=== PATIENT | female | born 1955 | race Caucasian/White ===

== ENCOUNTER 2016-11-16 14:44 | Emergency (ER) | payer OTHER ==
[~2016-11-16] VITALS: Ht 162.6 cm; Wt 100.0 kg
[~2016-11-16 14:44] MED LIST: PERCT PO; RIVA10 PO
[2016-11-16] MEDS ORDERED: MELO-273 PO (14:51)
[2016-11-16] MEDS ORDERED: GABA-531 PO (14:51)
[2016-11-16] MEDS ORDERED: LEVO25TA9 PO (14:51)
[2016-11-16] MEDS ORDERED: DULO30CA2 PO (14:51)
[2016-11-16] MEDS ORDERED: VITAD1000 PO (14:51)
[2016-11-16] MEDS ORDERED: NAPR220C15 PO (14:51)
[2016-11-16] MEDS ORDERED: KETOROLAC TROMETHAMINE 60 MG/2 ML VIAL IM ONE ×2 (17:15→17:45)
[2016-11-16] MEDS ORDERED: METHOCARBAMOL 500 MG TABLET PO ONE (17:30)
[2016-11-16 18:43] VITALS: BP 134/77
== END 2016-11-16 18:47 | disposition home or self-care (01) ==
LOC: EMS 14:45
DX: S66.912A Strain of unspecified muscle, fascia and tendon at wrist and hand level, left hand, initial encounter (principal); S66.911A Strain of unspecified muscle, fascia and tendon at wrist and hand level, right hand, initial encounter; S16.1XXA Strain of muscle, fascia and tendon at neck level, initial encounter; Z88.0 Allergy status to penicillin; X58.XXXA Exposure to other specified factors, initial encounter; Y93.89 Activity, other specified; Y92.89 Other specified places as the place of occurrence of the external cause; Y99.8 Other external cause status
CPT/HCPCS: 96372; 99283; J1885

== ENCOUNTER 2016-11-19 14:13 | Emergency (ER) | payer OTHER ==
[~2016-11-19] VITALS: Ht 162.6 cm; Wt 104.5 kg
[~2016-11-19 14:13] MED LIST changes: +DULO30CA2 PO; +GABA-531 PO; +LEVO25TA9 PO; +MELO-273 PO; +NAPR220C15 PO; -PERCT PO; -RIVA10 PO; +VITAD1000 PO
[2016-11-19] MEDS ORDERED: IBUP-2070 PO (14:18)
[2016-11-19 14:26] LABS: GLUCOSE,POINT OF CARE 99 MG/DL (70-110)
[2016-11-19 15:15] VITALS: BP 137/91
== END 2016-11-19 16:06 | disposition left against medical advice (07) ==
LOC: EMS 14:13
DX: M79.641 Pain in right hand (principal); M79.642 Pain in left hand; Z88.0 Allergy status to penicillin
CPT/HCPCS: 82962; 99282

== ENCOUNTER 2017-06-28 17:55 | Emergency (ER) | payer OTHER ==
[~2017-06-28] VITALS: Ht 162.6 cm; Wt 95.5 kg
[~2017-06-28 17:55] MED LIST changes: +IBUP-2070 PO; +MELO-107 PO; -MELO-273 PO
[2017-06-28] MEDS ORDERED: OxyCODONE HCL/ACETAMINOPHEN 5-325 MG TABLET PO ONE (19:00)
[2017-06-28 20:30] VITALS: BP 136/88
== END 2017-06-28 20:33 | disposition home or self-care (01) ==
LOC: EMS 17:58
DX: S13.4XXA Sprain of ligaments of cervical spine, initial encounter (principal); R07.89 Other chest pain; R03.0 Elevated blood-pressure reading, without diagnosis of hypertension; Z88.0 Allergy status to penicillin; V43.52XA Car driver injured in collision with other type car in traffic accident, initial encounter; Y93.89 Activity, other specified; Y92.89 Other specified places as the place of occurrence of the external cause; Y99.8 Other external cause status
CPT/HCPCS: 71020; 99284

== ENCOUNTER 2018-05-21 15:54 | Inpatient (IN) | payer MEDICARE, MEDICAID ==
[~2018-05-21] VITALS: Ht 162.6 cm; Wt 95.1 kg
[2018-05-21 16:50] LABS: BASOPHILS % (AUTO) 0.6 % (0.0-2.0); EOSINOPHILS % (AUTO) 0.7 % (1.0-6.0); HEMATOCRIT 37.1 % (36-46); HEMOGLOBIN 12.2 g/dL (12.0-16.0); LYMPHOCYTES # (AUTO) 3.3 K/uL (1.0-4.8); LYMPHOCYTES % (AUTO) 27.4 % (22.0-44.0); MEAN CORPUSCULAR HEMOGLOBIN 27.6 pg (26.0-34.0); MEAN CORPUSCULAR HGB CONC 32.8 G/dL (31.0-37.0); MEAN CORPUSCULAR VOLUME 84 fL (80-100); MONOCYTES # (AUTO) 0.8 K/uL (0.1-1.0); MONOCYTES % (AUTO) 6.3 % (2.0-9.0); NEUTROPHILS # (AUTO) 7.8 K/uL (1.8-7.7); PLATELET COUNT (AUTO) 250 K/uL (150-450); RED BLOOD CELL COUNT(AUTO) 4.42 MIL/uL (4.00-5.20); RED CELL DISTRIBUTION WIDTH 16.9 % (11.5-14.5)
[2018-05-21] MEDS ORDERED: TRAZ-220 PO (16:53)
[2018-05-21 17:02] LABS: ANION GAP 9 mmol/L (8-16); CARBON DIOXIDE 28 mmol/L (22-29); CHLORIDE 102 mmol/L (98-107); CREATININE 0.65 mg/dL (0.60-1.30); GLOMERULAR FILTR. RATE CALC > 60 mL/min (>60); GLUCOSE,RANDOM 100 mg/dL (70-110); POTASSIUM 3.4 mmol/L (3.5-5.1); SODIUM SERUM 139 mmol/L (136-145); UREA NITROGEN, BLOOD 17 mg/dL (7-18)
[2018-05-21 17:03] LABS: GLUCOSE,POINT OF CARE 99 MG/DL (70-110)
[2018-05-21 17:08] LABS: SALICYLATE 0.3 mg/dL (2.8-20.0)
[2018-05-21 17:09] LABS: ACETAMINOPHEN < 2 mcg/mL (10-30); ALANINE AMINOTRANSFERASE 68 U/L (12-78); ALBUMIN 3.6 g/dL (3.4-5.0); ALKALINE PHOSPHATASE 101 U/L (46-116); ASPARTATE AMINOTRANSFERASE 40 U/L (15-37); BILIRUBIN,TOTAL 0.4 mg/dL (0.1-1.0); TOTAL PROTEIN, SERUM 7.9 g/dL (6.4-8.2)
[2018-05-21] MEDS ORDERED: LISI-662 PO (17:14)
[2018-05-21 17:40] LABS: AMPHET/METH SCREEN,URINE POSITIVE (NEGATIVE); BARBITURATE SCREEN, URINE NEGATIVE (NEGATIVE); BENZODIAZEPINES SCREEN,URINE NEGATIVE (NEGATIVE); CANNABINOID SCREEN,URINE NEGATIVE (NEGATIVE); COCAINE SCREEN,URINE NEGATIVE (NEGATIVE); METHADONE SCREEN, URINE NEGATIVE (NEGATIVE); OPIATE SCREEN,URINE NEGATIVE (NEGATIVE); PHENCYCLIDINE SCREEN,URINE NEGATIVE (NEGATIVE)
[2018-05-21] MEDS ORDERED: SODIUM CHLORIDE 0.9% 1,000 ML IV ONE ×2 (19:17→19:30)
[2018-05-22] MEDS ORDERED: HALOPERIDOL 5 MG TABLET PO PRN (02:45)
[2018-05-22] MEDS ORDERED: LORazepam 2 MG TABLET PO PRN (02:45)
[2018-05-22] MEDS ORDERED: ZOLPIDEM TARTRATE 10 MG TABLET PO PRN (02:45)
[2018-05-22 09:00] VITALS: BP 106/45
[2018-05-22] MEDS ORDERED: ACETAMINOPHEN 325 MG TABLET PO PRN (11:15)
[2018-05-22] MEDS ORDERED: MAGNESIUM HYDROXIDE SUSPENSION 30 ML UDCUP PO PRN (11:15)
[2018-05-22] MEDS ORDERED: ONDANSETRON HCL 4 MG TABLET PO PRN (11:15)
[2018-05-22] MEDS ORDERED: NICOTINE 14 MG/24 HOUR PATCH TD PRN (11:15)
[2018-05-22] MEDS ORDERED: DOCUSATE SODIUM 100 MG CAPSULE PO PRN (11:15)
[2018-05-22] MEDS ORDERED: LOPERAMIDE HCL 2 MG CAPSULE PO PRN (11:15)
[2018-05-22] MEDS ORDERED: GuaiFENesin/D-METHORPHAN [SUGAR-FREE] 200-20MG/10 ML SYRUP UDCUP PO PRN (11:15)
[2018-05-22] MEDS ORDERED: PETROLATUM,WHITE 71 GM JELLY TP PRN (11:15)
[2018-05-22] MEDS ORDERED: CloNIDine HCL 0.1 MG TABLET PO PRN (11:15)
[2018-05-22] MEDS ORDERED: MAG HYDROX/AL HYDROX/SIMETH ES 30 ML SUSPENSION UDCUP PO PRN (11:15)
[2018-05-22] MEDS ORDERED: ALBUTEROL SULFATE HFA 90 MCG/PUFF 8 GM INHALER IH PRN (11:15)
[2018-05-22 16:00] VITALS: BP 111/64
[2018-05-22] MEDS ORDERED: POTASSIUM CHLORIDE 20 MEQ ER TABLET PO ONE (17:15)
[2018-05-23 02:48] VITALS: BP 110/62
[2018-05-23] MEDS: IBUPROFEN 400 MG TABLET PO PRN ×2 (02:56→17:55)
[2018-05-23 06:10] VITALS: BP 108/65
[2018-05-23 08:14] VITALS: BP 106/68
[2018-05-23 08:33] LABS: BASOPHILS % (AUTO) 0.4 % (0.0-2.0); EOSINOPHILS % (AUTO) 2.3 % (1.0-6.0); HEMATOCRIT 35.3 % (36-46); HEMOGLOBIN 11.5 g/dL (12.0-16.0); LYMPHOCYTES # (AUTO) 3.3 K/uL (1.0-4.8); MEAN CORPUSCULAR HEMOGLOBIN 27.7 pg (26.0-34.0); MEAN CORPUSCULAR HGB CONC 32.8 G/dL (31.0-37.0); MEAN CORPUSCULAR VOLUME 85 fL (80-100); MONOCYTES # (AUTO) 0.5 K/uL (0.1-1.0); NEUTROPHILS # (AUTO) 4.4 K/uL (1.8-7.7); NEUTROPHILS % (AUTO) 52.3 % (40.0-70.0); PLATELET COUNT (AUTO) 240 K/uL (150-450); RED BLOOD CELL COUNT(AUTO) 4.16 MIL/uL (4.00-5.20); RED CELL DISTRIBUTION WIDTH 16.9 % (11.5-14.5)
[2018-05-23 09:05] LABS: ALANINE AMINOTRANSFERASE 52 U/L (12-78); ALBUMIN 2.9 g/dL (3.4-5.0); ALKALINE PHOSPHATASE 82 U/L (46-116); ANION GAP 6 mmol/L (8-16); ASPARTATE AMINOTRANSFERASE 37 U/L (15-37); BILIRUBIN,TOTAL 0.2 mg/dL (0.1-1.0); CALCIUM, TOTAL 8.4 mg/dL (8.8-10.5); CARBON DIOXIDE 29 mmol/L (22-29); CHLORIDE 105 mmol/L (98-107); CHOL/HDL RATIO 2.7 (3.9-5.7); CHOLESTEROL 138 mg/dL (131-200); CREATININE 0.65 mg/dL (0.60-1.30); FREE T4 (FREE THYROXINE) 0.98 ng/dL (0.76-1.46); GLOMERULAR FILTR. RATE CALC > 60 mL/min (>60); GLUCOSE,RANDOM 93 mg/dL (70-110); HDL CHOLESTEROL 51 mg/dL (40-60); LDL CHOL (CALC.) 78 mg/dL (0-130); POTASSIUM 3.9 mmol/L (3.5-5.1); SODIUM SERUM 140 mmol/L (136-145); THYROID STIMULATING HORMONE 0.61 uIU/mL (0.36-3.74); TOTAL PROTEIN, SERUM 6.4 g/dL (6.4-8.2); TRIGLYCERIDES 44 mg/dL (15-150); UREA NITROGEN, BLOOD 14 mg/dL (7-18)
[2018-05-23 10:01] LABS: HEMOGLOBIN A1C 5.9 % (4.5-6.2)
[2018-05-23] MEDS: DULoxetine HCL 30 MG CAPSULE PO SCH (12:43)
[2018-05-23 16:13] VITALS: BP 118/67
[2018-05-23 16:38] LABS: GLUCOMETER DEV NAME(LOC) BV2N3; GLUCOSE,POINT OF CARE 127 MG/DL (70-110)
[2018-05-24 02:40] VITALS: BP 127/64
[2018-05-24 08:08] VITALS: BP 123/63
[2018-05-24] MEDS: DULoxetine HCL 30 MG CAPSULE PO SCH (08:28)
== END 2018-05-24 13:00 | disposition home or self-care (01) | DRG 885 ==
LOC: EMS 15:55 → B3A 05-22 05:24 → B2X 05-22 20:54
PROVIDERS: ADMIT Psychiatry & Neurology Psychiatry; ATTEND Psychiatry & Neurology Psychiatry
DX: F33.2 Major depressive disorder, recurrent severe without psychotic features (principal); T43.211A Poisoning by selective serotonin and norepinephrine reuptake inhibitors, accidental (unintentional), initial encounter; F25.9 Schizoaffective disorder, unspecified; D72.829 Elevated white blood cell count, unspecified; E03.9 Hypothyroidism, unspecified; I10 Essential (primary) hypertension; M19.90 Unspecified osteoarthritis, unspecified site; E55.9 Vitamin D deficiency, unspecified; D64.9 Anemia, unspecified; F41.9 Anxiety disorder, unspecified; Z96.651 Presence of right artificial knee joint; Z88.0 Allergy status to penicillin; Z88.6 Allergy status to analgesic agent; Y92.89 Other specified places as the place of occurrence of the external cause; Z79.899 Other long term (current) drug therapy
CPT/HCPCS: 82948; 83036; 84439; 84443; 93005; 96360; G0480; G0481; J7030

== ENCOUNTER 2018-06-27 23:58 | Emergency (ER) | payer MEDICARE, OTHER ==
[~2018-06-27] VITALS: Ht 165.1 cm; Wt 86.4 kg
[~2018-06-27 23:58] MED LIST changes: -GABA-531 PO; -IBUP-2070 PO; -LEVO25TA9 PO; -MELO-107 PO; -NAPR220C15 PO; -VITAD1000 PO
[2018-06-28] MEDS ORDERED: LISI-662 PO (00:25)
[2018-06-28] MEDS ORDERED: HYDR-4061 PO (00:25)
[2018-06-28] MEDS ORDERED: IBUP-2070 PO (00:25)
[2018-06-28] MEDS ORDERED: FLUT16H NASAL (00:25)
[2018-06-28] MEDS ORDERED: MELO-107 PO (00:25)
[2018-06-28] MEDS ORDERED: DSS100 PO (00:25)
[2018-06-28] MEDS ORDERED: GABA-531 PO (00:25)
[2018-06-28] MEDS ORDERED: ONDANSETRON HCL 4 MG/2 ML VIAL IVP ONE (01:30)
[2018-06-28] MEDS ORDERED: MORPHINE SULFATE 4 MG/ML SYRINGE IVP ONE (01:30)
[2018-06-28 02:17] LABS: BASOPHILS % (AUTO) 0.6 % (0.0-2.0); EOSINOPHILS % (AUTO) 0.9 % (1.0-6.0); HEMATOCRIT 39.8 % (36-46); HEMOGLOBIN 13.4 g/dL (12.0-16.0); LYMPHOCYTES # (AUTO) 1.5 K/uL (1.0-4.8); LYMPHOCYTES % (AUTO) 13.9 % (22.0-44.0); MEAN CORPUSCULAR HGB CONC 33.7 G/dL (31.0-37.0); MEAN CORPUSCULAR VOLUME 83 fL (80-100); MONOCYTES # (AUTO) 0.6 K/uL (0.1-1.0); MONOCYTES % (AUTO) 5.8 % (2.0-9.0); NEUTROPHILS # (AUTO) 8.3 K/uL (1.8-7.7); NEUTROPHILS % (AUTO) 78.8 % (40.0-70.0); PLATELET COUNT (AUTO) 268 K/uL (150-450); RED BLOOD CELL COUNT(AUTO) 4.79 MIL/uL (4.00-5.20); RED CELL DISTRIBUTION WIDTH 16.8 % (11.5-14.5)
[2018-06-28 02:25] LABS: ANION GAP 9 mmol/L (8-16); CALCIUM, TOTAL 8.6 mg/dL (8.8-10.5); CARBON DIOXIDE 26 mmol/L (22-29); CHLORIDE 103 mmol/L (98-107); CREATININE 0.83 mg/dL (0.60-1.30); GLOMERULAR FILTR. RATE CALC > 60 mL/min (>60); GLUCOSE,RANDOM 115 mg/dL (70-110); POTASSIUM 3.7 mmol/L (3.5-5.1); SODIUM SERUM 138 mmol/L (136-145); UREA NITROGEN, BLOOD 22 mg/dL (7-18)
[2018-06-28 02:31] LABS: ALANINE AMINOTRANSFERASE 75 U/L (12-78); ALBUMIN 3.7 g/dL (3.4-5.0); ALKALINE PHOSPHATASE 122 U/L (46-116); ASPARTATE AMINOTRANSFERASE 54 U/L (15-37); BILIRUBIN,TOTAL 0.6 mg/dL (0.1-1.0); LIPASE 101 U/L (73-393)
[2018-06-28 02:40] VITALS: BP 137/94
== END 2018-06-28 03:29 | disposition home or self-care (01) ==
LOC: EMS 23:59
DX: G89.18 Other acute postprocedural pain (principal); F41.9 Anxiety disorder, unspecified; F32.9 Major depressive disorder, single episode, unspecified; Z90.49 Acquired absence of other specified parts of digestive tract; Z88.0 Allergy status to penicillin; Z79.899 Other long term (current) drug therapy
CPT/HCPCS: 36415; 80053; 83690; 85025; 96374; 96375; 99283; J2270; J2405

== ENCOUNTER 2018-11-17 23:39 | Emergency (ER) | payer MEDICARE, MEDICAID ==
[~2018-11-17] VITALS: Ht 162.6 cm; Wt 100.0 kg
[~2018-11-17 23:39] MED LIST changes: +DSS100 PO; +FLUT16H NASAL; +GABA-531 PO; +HYDR-4061 PO; +IBUP-2070 PO; +LISI-662 PO; +MELO-107 PO
[2018-11-18 00:54] VITALS: BP 134/78
== END 2018-11-18 01:25 | disposition home or self-care (01) ==
LOC: EMS 23:42
DX: R33.9 Retention of urine, unspecified (principal); F41.9 Anxiety disorder, unspecified; E66.9 Obesity, unspecified; F32.9 Major depressive disorder, single episode, unspecified; F25.9 Schizoaffective disorder, unspecified; Z68.37 Body mass index [BMI] 37.0-37.9, adult; Z90.49 Acquired absence of other specified parts of digestive tract; Z79.899 Other long term (current) drug therapy; Z88.0 Allergy status to penicillin
CPT/HCPCS: 51702

== ENCOUNTER 2022-08-18 12:58 | Emergency (ER) | payer MEDICARE, MEDICAID ==
[~2022-08-18] VITALS: Ht 162.6 cm; Wt 90.0 kg
[~2022-08-18 12:58] MED LIST changes: -DSS100 PO; +DULO-114 PO; -DULO30CA2 PO; -FLUT16H NASAL; +FLUT16SP NASAL; +GABA-1181 PO; -GABA-531 PO; -HYDR-4061 PO; -IBUP-2070 PO; -LISI-662 PO; -MELO-107 PO; +MELO-381 PO; +OSEL75 PO; +ROPI2TAB26 PO; +TRAZ-257 PO
[2022-08-18 14:03] LABS: BASOPHILS % (AUTO) 0.4 % (0.0-2.0); EOSINOPHILS % (AUTO) 5.7 % (1.0-6.0); HEMATOCRIT 38.2 % (36-46); HEMOGLOBIN 12.2 g/dL (12.0-16.0); LYMPHOCYTES # (AUTO) 2.8 K/uL (1.0-4.8); LYMPHOCYTES % (AUTO) 39.8 % (22.0-44.0); MEAN CORPUSCULAR HEMOGLOBIN 27.7 pg (26.0-34.0); MEAN CORPUSCULAR HGB CONC 31.9 G/dL (31.0-37.0); MEAN CORPUSCULAR VOLUME 87 fL (80-100); MONOCYTES # (AUTO) 0.5 K/uL (0.1-1.0); MONOCYTES % (AUTO) 6.5 % (2.0-9.0); NEUTROPHILS # (AUTO) 3.3 K/uL (1.8-7.7); NEUTROPHILS % (AUTO) 47.6 % (40.0-70.0); PLATELET COUNT (AUTO) 186 K/uL (150-450); RED BLOOD CELL COUNT(AUTO) 4.39 MIL/uL (4.00-5.20); RED CELL DISTRIBUTION WIDTH 15.5 % (11.5-14.5)
[2022-08-18 14:12] LABS: ANION GAP 8 mmol/L (8-16); CALCIUM, TOTAL 8.8 mg/dL (8.8-10.5); CARBON DIOXIDE 28 mmol/L (22-29); CHLORIDE 108 mmol/L (98-107); GLUCOSE,RANDOM 90 mg/dL (70-110); POTASSIUM 3.8 mmol/L (3.5-5.1); SODIUM SERUM 144 mmol/L (136-145); UREA NITROGEN, BLOOD 15 mg/dL (7-18)
[2022-08-18 14:13] LABS: GLOMERULAR FILTR. RATE CALC > 60 mL/min (>60)
[2022-08-18 14:16] LABS: B-TYPE NATRIURETIC PEPTIDE 54 pg/mL (0-100)
[2022-08-18 14:17] LABS: ALANINE AMINOTRANSFERASE 30 U/L (12-78); ALBUMIN 3.4 g/dL (3.4-5.0); ALKALINE PHOSPHATASE 82 U/L (46-116); ASPARTATE AMINOTRANSFERASE 32 U/L (15-37); BILIRUBIN,TOTAL 0.3 mg/dL (0.1-1.0); LIPASE 70 U/L (73-393); TOTAL PROTEIN, SERUM 7.1 g/dL (6.4-8.2)
[2022-08-18 14:31] LABS: PROTHROMBIN TIME 10.8 SEC (9.4-11.6)
[2022-08-18] MEDS ORDERED: PB/HYOSCY/ATR/SCOP/LIDO/MAALOX 55 ML BOTTLE PO ONE (15:45)
[2022-08-18] MEDS ORDERED: MORPHINE SULFATE 4 MG/ML SYRINGE IVP ONE (16:00)
[2022-08-18] MEDS ORDERED: SODIUM CHLORIDE 0.9% 1,000 ML IV ONE (16:00)
[2022-08-18 16:39] VITALS: BP 123/72
[2022-08-18] MEDS ORDERED: DOCU-119 PO ×2 (17:36→19:05)
[2022-08-18] MEDS ORDERED: HYDR-4723 PO ×2 (17:36→19:05)
[2022-08-18 19:16] LABS: GLUCOMETER DEV NAME(LOC) ERT.5; GLUCOSE,POINT OF CARE 83 MG/DL (70-110)
== END 2022-08-18 18:00 | disposition home or self-care (01) ==
LOC: EMS 13:01
DX: G89.18 Other acute postprocedural pain (principal); R10.11 Right upper quadrant pain; F41.9 Anxiety disorder, unspecified; F32.A Depression, unspecified; Z90.49 Acquired absence of other specified parts of digestive tract; Z96.659 Presence of unspecified artificial knee joint; Z88.0 Allergy status to penicillin; Z88.5 Allergy status to narcotic agent
CPT/HCPCS: 80053; 82962; 83690; 83880; 84484; 85025; 85610; 85730; 36415; 71045; 74177; 99285; 93005; 96361; 96374; J2270; J7030

== ENCOUNTER 2023-06-01 11:48 | Emergency (ER) | payer MEDICARE, MEDICAID ==
[~2023-06-01] VITALS: Ht 157.5 cm; Wt 86.4 kg
[~2023-06-01 11:48] MED LIST changes: +DOCU-119 PO; +HYDR-4723 PO
[2023-06-01 11:50] VITALS: TEMP 98.9
[2023-06-01] MEDS ORDERED: MAG HYDROX/ALUMINUM HYD/SIMETH 30 ML SUSPENSION UDCUP PO ONE (12:15)
[2023-06-01] MEDS ORDERED: SODIUM CHLORIDE 0.9% 1,000 ML IV ONE (12:15)
[2023-06-01] MEDS ORDERED: KETOROLAC TROMETHAMINE 30 MG/ML VIAL IVP ONE ×2 (12:15→13:45)
[2023-06-01] MEDS ORDERED: ACETAMINOPHEN 500 MG TABLET PO ONE (12:15)
[2023-06-01] MEDS ORDERED: FAMOTIDINE 20 MG/2 ML VIAL IVP ONE (12:15)
[2023-06-01 12:32] LABS: BASOPHILS % (AUTO) 1.1 % (0.0-2.0); EOSINOPHILS % (AUTO) 2.2 % (1.0-6.0); HEMATOCRIT 36.7 % (36-46); HEMOGLOBIN 12.3 g/dL (12.0-16.0); LYMPHOCYTES # (AUTO) 3.9 K/uL (1.0-4.8); LYMPHOCYTES % (AUTO) 45.7 % (22.0-44.0); MEAN CORPUSCULAR HEMOGLOBIN 28.7 pg (26.0-34.0); MEAN CORPUSCULAR HGB CONC 33.4 G/dL (31.0-37.0); MEAN CORPUSCULAR VOLUME 86 fL (80-100); MONOCYTES # (AUTO) 0.6 K/uL (0.1-1.0); MONOCYTES % (AUTO) 6.7 % (2.0-9.0); NEUTROPHILS # (AUTO) 3.8 K/uL (1.8-7.7); NEUTROPHILS % (AUTO) 44.3 % (40.0-70.0); PLATELET COUNT (AUTO) 264 K/uL (150-450); RED BLOOD CELL COUNT(AUTO) 4.28 MIL/uL (4.00-5.20); RED CELL DISTRIBUTION WIDTH 15.6 % (11.5-14.5); WHITE BLOOD COUNT (AUTO) 8.6 K/uL (4.5-11.0)
[2023-06-01 12:48] LABS: ANION GAP 11 mmol/L (8-16); CALCIUM, TOTAL 9.5 mg/dL (8.8-10.5); CARBON DIOXIDE 24 mmol/L (22-29); CHLORIDE 104 mmol/L (98-107); CREATININE 0.74 mg/dL (0.60-1.30); GLOMERULAR FILTR. RATE CALC > 60 mL/min (>60); GLUCOSE,RANDOM 96 mg/dL (70-110); POTASSIUM 3.5 mmol/L (3.5-5.1); SODIUM SERUM 139 mmol/L (136-145); UREA NITROGEN, BLOOD 21 mg/dL (7-18)
[2023-06-01 12:53] LABS: ALANINE AMINOTRANSFERASE 31 U/L (12-78); ALBUMIN 3.7 g/dL (3.4-5.0); ALKALINE PHOSPHATASE 89 U/L (46-116); ASPARTATE AMINOTRANSFERASE 27 U/L (15-37); BILIRUBIN,TOTAL 0.4 mg/dL (0.1-1.0); LIPASE 23 U/L (16-77); TOTAL PROTEIN, SERUM 7.6 g/dL (6.4-8.2)
[2023-06-01] MEDS ORDERED: IOHEXOL 350 MG/ML 100 ML VIAL ONE (12:56)
[2023-06-01] MEDS ORDERED: SODIUM CHLORIDE 0.9% 100 ML ONE (12:56)
[2023-06-01 13:10] LABS: COVID AG,FIA SOURCE NASAL SWAB
[2023-06-01 13:18] LABS: APPEARANCE,URINE HAZY (CLEAR); BILIRUBIN,URINE NEGATIVE (NEGATIVE); COLOR,URINE YELLOW (YELLOW); GLUCOSE, URINE (UA) NEGATIVE (NEGATIVE); KETONES,URINE NEGATIVE (NEGATIVE); LEUKOCYTE ESTERASE ,URINE LARGE (NEGATIVE); NITRATE,URINE NEGATIVE (NEGATIVE); OCCULT BLOOD,URINE SMALL (NEGATIVE); PH,URINE 6.5 (5.0-8.0); PH,URINE DRUG SCREEN 6.5 (5.0-8.0); PROTEIN,URINE TRACE mg/dL (NEGATIVE); UROBILINOGEN,URINE <=1.0 mg/dL (<=1.0)
[2023-06-01 13:18] LABS: LACTIC ACID 1.5 mmol/L (0.4-2.0)
[2023-06-01 13:25] LABS: AMPHET/METH SCREEN,URINE NEGATIVE (NEGATIVE); BARBITURATE SCREEN, URINE NEGATIVE (NEGATIVE); BENZODIAZEPINES SCREEN,URINE NEGATIVE (NEGATIVE); CANNABINOID SCREEN,URINE NEGATIVE (NEGATIVE); COCAINE SCREEN,URINE NEGATIVE (NEGATIVE); METHADONE SCREEN, URINE NEGATIVE (NEGATIVE); OPIATE SCREEN,URINE NEGATIVE (NEGATIVE); PHENCYCLIDINE SCREEN,URINE NEGATIVE (NEGATIVE)
[2023-06-01 13:28] LABS: ALCOHOL, URINE DRUG SCREEN NEGATIVE (NEGATIVE)
[2023-06-01 13:34] LABS: BACTERIA,URINE Moderate /HPF (None Seen); SQUAMOUS EPITHELIAL CELL,UR Few /LPF (None Seen); WBC,URINE 26-50 /HPF (0-5)
[2023-06-01 13:37] LABS: SARS-COV2 (COVID) ANTIGEN,FIA Negative (Negative)
[2023-06-01 13:44] VITALS: BP 132/67; PULSE 71; RESP 22
[2023-06-01] MEDS ORDERED: LEVOFLOXACIN 750 MG/D5% WATER 150 ML IV ONE (14:00)
[2023-06-01] MEDS ORDERED: LEVOFLOXACIN 250 MG TABLET PO ONE (14:00)
[2023-06-01] MEDS ORDERED: LEVO750T68 PO (14:13)
== END 2023-06-01 15:56 | disposition home or self-care (01) ==
LOC: EMS 11:48
DX: N39.0 Urinary tract infection, site not specified (principal); R10.13 Epigastric pain; F41.9 Anxiety disorder, unspecified; F32.A Depression, unspecified; Z90.49 Acquired absence of other specified parts of digestive tract; Z96.659 Presence of unspecified artificial knee joint; Z88.0 Allergy status to penicillin; Z88.5 Allergy status to narcotic agent; Z20.822 Contact with and (suspected) exposure to COVID-19
CPT/HCPCS: 99285; 74177; 96365; 76705; 96375; 96361; 87426; 80053; 83605; 83690; 85025; 36415; 87086; 87186; 96376; 80307; 81001; J3490; J1885; J1956; Q9967; J7030; J7050; 96367

== ENCOUNTER 2024-03-18 08:58 | Inpatient (IN) | payer MEDICARE, MEDICAID ==
[~2024-03-18] VITALS: Ht 165.1 cm; Wt 89.9 kg
[~2024-03-18 08:58] MED LIST changes: +HYDR-4062 PO; -HYDR-4723 PO; +LEVO750T68 PO; +MELO-107 PO; -MELO-381 PO; -OSEL75 PO; +OSEL75CA45 PO
[2024-03-18] MEDS ORDERED: HALOPERIDOL LACTATE 5 MG/ML VIAL ONE (09:05)
[2024-03-18] MEDS ORDERED: DiphenhydrAMINE HCL 50 MG/ML VIAL ONE (09:05)
[2024-03-18] MEDS ORDERED: LORazepam 2 MG/ML VIAL ONE (09:05)
[2024-03-18] MEDS: LORazepam 2 MG/ML VIAL IM ONE (09:10)
[2024-03-18] MEDS: DiphenhydrAMINE HCL 50 MG/ML VIAL IM ONE (09:10)
[2024-03-18] MEDS: HALOPERIDOL LACTATE 5 MG/ML VIAL IM ONE (09:10)
[2024-03-18] MEDS ORDERED: IOHEXOL 350 MG/ML 100 ML VIAL ONE ×2 (09:11→13:07)
[2024-03-18] MEDS ORDERED: SODIUM CHLORIDE 0.9% 0 ML ONE (09:11)
[2024-03-18 09:34] LABS: EOSINOPHILS % (AUTO) 2.2 % (1.0-6.0); HEMATOCRIT 41.3 % (36-46); HEMOGLOBIN 13.6 g/dL (12.0-16.0); LYMPHOCYTES # (AUTO) 8.3 K/uL (1.0-4.8); LYMPHOCYTES % (AUTO) 57.8 % (22.0-44.0); MEAN CORPUSCULAR HEMOGLOBIN 29.2 pg (26.0-34.0); MEAN CORPUSCULAR HGB CONC 32.8 G/dL (31.0-37.0); MEAN CORPUSCULAR VOLUME 89 fL (80-100); MONOCYTES # (AUTO) 1.1 K/uL (0.1-1.0); MONOCYTES % (AUTO) 7.6 % (2.0-9.0); NEUTROPHILS # (AUTO) 4.5 K/uL (1.8-7.7); NEUTROPHILS % (AUTO) 31.4 % (40.0-70.0); RED BLOOD CELL COUNT(AUTO) 4.65 MIL/uL (4.00-5.20); RED CELL DISTRIBUTION WIDTH 15.4 % (11.5-14.5); WHITE BLOOD COUNT (AUTO) 14.4 K/uL (4.5-11.0)
[2024-03-18 09:38] LABS: ANION GAP 12 mmol/L (8-16); CALCIUM, TOTAL 8.5 mg/dL (8.8-10.5); CARBON DIOXIDE 24 mmol/L (22-29); CHLORIDE 105 mmol/L (98-107); CREATININE 0.82 mg/dL (0.60-1.30); GLOMERULAR FILTR. RATE CALC > 60 mL/min (>60); GLUCOSE,RANDOM 158 mg/dL (70-110); POTASSIUM 3.4 mmol/L (3.5-5.1); SODIUM SERUM 141 mmol/L (136-145); UREA NITROGEN, BLOOD 14 mg/dL (7-18)
[2024-03-18 09:40] LABS: ALCOHOL, BLOOD (SERUM) < 3 mg/dL (0-10)
[2024-03-18 09:44] LABS: PLATELET COUNT (AUTO) 244 K/uL (150-450)
[2024-03-18 09:45] LABS: ALANINE AMINOTRANSFERASE 28 U/L (12-78); ALBUMIN 3.4 g/dL (3.4-5.0); ALKALINE PHOSPHATASE 101 U/L (46-116); ASPARTATE AMINOTRANSFERASE 24 U/L (15-37); BILIRUBIN,TOTAL 0.2 mg/dL (0.1-1.0); TOTAL PROTEIN, SERUM 7.8 g/dL (6.4-8.2)
[2024-03-18 09:46] LABS: ACETAMINOPHEN < 2 mcg/mL (10-30)
[2024-03-18 09:51] LABS: APPEARANCE,URINE CLEAR (CLEAR); BILIRUBIN,URINE NEGATIVE (NEGATIVE); COLOR,URINE LIGHT YELLOW (YELLOW); GLUCOSE, URINE (UA) NEGATIVE (NEGATIVE); KETONES,URINE NEGATIVE (NEGATIVE); LEUKOCYTE ESTERASE ,URINE NEGATIVE (NEGATIVE); NITRATE,URINE NEGATIVE (NEGATIVE); OCCULT BLOOD,URINE SMALL (NEGATIVE); PH,URINE 5.5 (5.0-8.0); PH,URINE DRUG SCREEN 5.5 (5.0-8.0); PROTEIN,URINE TRACE mg/dL (NEGATIVE); SPECIFIC GRAVITIY, URINE 1.016 (1.003-1.030); UROBILINOGEN,URINE <=1.0 mg/dL (<=1.0)
[2024-03-18 09:51] LABS: SALICYLATE 0.8 mg/dL (2.8-20.0)
[2024-03-18 09:52] LABS: TROPONIN I-HIGH SENSITIVITY 4 ng/L (<51)
[2024-03-18 09:59] LABS: ALCOHOL, URINE DRUG SCREEN NEGATIVE (NEGATIVE); AMPHET/METH SCREEN,URINE NEGATIVE (NEGATIVE); BARBITURATE SCREEN, URINE NEGATIVE (NEGATIVE); BENZODIAZEPINES SCREEN,URINE NEGATIVE (NEGATIVE); CANNABINOID SCREEN,URINE NEGATIVE (NEGATIVE); COCAINE SCREEN,URINE NEGATIVE (NEGATIVE); METHADONE SCREEN, URINE NEGATIVE (NEGATIVE); OPIATE SCREEN,URINE NEGATIVE (NEGATIVE); PHENCYCLIDINE SCREEN,URINE NEGATIVE (NEGATIVE)
[2024-03-18 10:00] LABS: BACTERIA,URINE None Seen /HPF (None Seen); SQUAMOUS EPITHELIAL CELL,UR Few /LPF (None Seen); WBC,URINE None Seen /HPF (0-5)
[2024-03-18] MEDS: CEFEPIME HCL 1 GM in DEXTROSE 5%-WATER 50 ML IV ONE (10:45)
[2024-03-18 10:59] LABS: ABG CARBOXYHEMOGLOBIN 0.6 % (0.0-1.5); ABG HCO3 22.2 mmol/L (22.0-26.0); ABG METHEMOGLOBIN 0.6 % (0.0-1.5); ABG OXYGEN SATURATION 86.3 % (95.0-98.0); ABG OXYHEMOGLOBIN 85.3 % (94.0-100.0); ABG PCO2 51 mmHg (35-45); ABG PH 7.297 (7.35-7.450); ABG TOTAL HEMOGLOBIN 14.2 G/dL (12.0-18.0); ALLEN TEST, BLOOD GAS POS; SITE, BLOOD GAS RT BRACHIAL; SOURCE, BLOOD GAS ARTERIAL; TEMPERATURE, FAHRENHEIT, BG 99.6 FAHREN (96.0-98.6)
[2024-03-18 11:00] LABS: O2 DEVICE,BLOOD GAS NONREB (ROOM AIR)
[2024-03-18 11:12] LABS: LACTIC ACID 2.9 mmol/L (0.4-2.0)
[2024-03-18] MEDS: SODIUM CHLORIDE 0.9% 1,000 ML IV ONE ×3 (11:26→18:06)
[2024-03-18] MEDS: *CLINICAL-CEFEPIME DOSING CLINICAL ONE (11:36)
[2024-03-18] MEDS ORDERED: BISACODYL 10 MG RECTAL RECTAL SUPPOSITORY PR PRN (11:45)
[2024-03-18] MEDS ORDERED: ONDANSETRON HCL 4 MG/2 ML VIAL IVP PRN (11:45)
[2024-03-18 11:59] LABS: CREATINE KINASE, TOTAL ONLY 229 U/L (26-192)
[2024-03-18] MEDS ORDERED: ROCURONIUM BROMIDE 10 MG/ML 5 ML VIAL ONE (12:23)
[2024-03-18 12:30] VITALS: PULSE 106; RESP 26; O2SAT 92
[2024-03-18 12:36] VITALS: PULSE 110; RESP 18; O2SAT 91
[2024-03-18] MEDS ORDERED: SODIUM CHLORIDE 0.9% 100 ML ONE (13:07)
[2024-03-18] MEDS ORDERED: 0.9% SODIUM CHLORIDE 10 ML SYRINGE IVP ONE (13:08)
[2024-03-18] MEDS ORDERED: NOREPINEPHRINE 8 MG/0.9 % NACL 250 ML IV ONE (13:09)
[2024-03-18] MEDS: NOREPINEPHRINE 8 MG/0.9 % NACL 250 ML IV PRN (13:20)
[2024-03-18 13:56] LABS: ABG BASE EXCESS -6.9 mmol/L (-2.0-3.0); ABG CARBOXYHEMOGLOBIN 0.4 % (0.0-1.5); ABG HCO3 18.7 mmol/L (22.0-26.0); ABG METHEMOGLOBIN 0.7 % (0.0-1.5); ABG OXYGEN CONTENT 16.3 mL/dL (15.0-23.0); ABG OXYGEN SATURATION 88.6 % (95.0-98.0); ABG OXYHEMOGLOBIN 87.6 % (94.0-100.0); ABG PCO2 48 mmHg (35-45); ABG PH 7.247 (7.35-7.450); ABG TOTAL HEMOGLOBIN 13.2 G/dL (12.0-18.0); PO2, ARTERIAL BG 59.5 mmHg (79.0-87.0); SOURCE, BLOOD GAS ARTERIAL
[2024-03-18 13:57] LABS: ALLEN TEST, BLOOD GAS POS; SITE, BLOOD GAS RT BRACHIAL
[2024-03-18 13:58] LABS: O2 DEVICE,BLOOD GAS VENTILATOR (ROOM AIR); PEEP,BG 5 cm H2O; VT, ABG 420 ml
[2024-03-18] MEDS: PROPOFOL 1000 MG/ISO-OSM 100 ML IV PRN (14:09)
[2024-03-18] MEDS: VANCOMYCIN 1.5 GM/WATER(PEG) 300 ML IV ONE (14:29)
[2024-03-18 14:44] LABS: TROPONIN I-HIGH SENSITIVITY 807 ng/L (<51)
[2024-03-18] MEDS ORDERED: CEFEPIME HCL 1 GM in DEXTROSE 5%-WATER 50 ML IV SCH (15:30)
[2024-03-18 16:00] VITALS: PULSE 109; RESP 22; O2SAT 92
[2024-03-18] MEDS: HEPARIN SODIUM,PORCINE 5,000 UNITS/ML VIAL SQ SCH (16:14)
[2024-03-18] MEDS: ACETAMINOPHEN 325 MG TABLET PO PRN (17:01)
[2024-03-18] MEDS: *CLINICAL-LEVOFLOXACIN IVPB DOSING CLINICAL ONE (17:06)
[2024-03-18] MEDS: LEVOFLOXACIN 750 MG/D5% WATER 150 ML IV SCH (17:14)
[2024-03-18] MEDS: *CLINICAL-MEROPENEM DOSING CLINICAL ONE (17:59)
[2024-03-18] MEDS: KETOROLAC TROMETHAMINE 15 MG/ML VIAL IVP ONE (18:05)
[2024-03-18] MEDS: MEROPENEM 1 GM in SODIUM CHLORIDE 0.9% 100 ML IV SCH (18:39)
[2024-03-18] MEDS: FentaNYL CIT 1000MCG/0.9% NACL 100 ML IV PRN (19:16)
[2024-03-18 19:55] VITALS: PULSE 107; RESP 24; O2SAT 97
[2024-03-18 20:29] LABS: CHOL/HDL RATIO 1.8 (3.9-5.7)
[2024-03-18] MEDS: VASOPRESSIN 40 UNITS in DEXTROSE 5%-WATER 98 ML IV PRN (20:45)
[2024-03-18] MEDS: ACETAMINOPHEN 1000 MG/ISO-OSM 100 ML IV ONE (21:11)
[2024-03-18] MEDS: VANCOMYCIN 1GM/WATER(PEG/NADA) 200 ML IV SCH (21:26)
[2024-03-18] MEDS: PHENYLEPHRINE 200 MG/D5%-WATER 250 ML IV PRN (22:10)
[2024-03-18] MEDS: CLINDAMYCIN 600 MG/D5% WATER 50 ML IV ONE (22:33)
[2024-03-18 22:35] VITALS: PULSE 98; RESP 22; O2SAT 95
[2024-03-19] VITALS (10 sets, daily range): BP systolic 117–135; BP diastolic 63–66; PULSE 100–124; RESP 21–24; TEMP 99.8–101.2; O2SAT 88–98
[2024-03-19] MEDS: IPRATROPIUM BROMIDE 0.5 MG/2.5 ML NEB SOLUTION NEB ONE (00:06)
[2024-03-19] MEDS: ALBUTEROL SULFATE 2.5 MG/0.5 ML 5 ML NEB SOLUTION NEB ONE (00:06)
[2024-03-19] MEDS: ASPIRIN 81 MG CHEWABLE TABLET GT ONE (00:08)
[2024-03-19] MEDS: MethylPREDNISolone SOD SUCC 125 MG/2 ML VIAL IVP ONE (00:31)
[2024-03-19] MEDS: FUROSEMIDE 20 MG/2 ML VIAL IVP ONE ×2 (00:32→02:46)
[2024-03-19] MEDS: FLUCONAZOLE 200 MG/NACL ISOOSM 100 ML IV ONE (01:09)
[2024-03-19 01:18] LABS: SOURCE, BLOOD GAS ARTERIAL; TEMPERATURE, FAHRENHEIT, BG 102.4 FAHREN (96.0-98.6)
[2024-03-19 01:20] LABS: ABG BASE EXCESS -7.4 mmol/L (-2.0-3.0); ABG CARBOXYHEMOGLOBIN 0.4 % (0.0-1.5); ABG HCO3 18.4 mmol/L (22.0-26.0); ABG OXYGEN SATURATION 86.7 % (95.0-98.0); ABG OXYHEMOGLOBIN 86.4 % (94.0-100.0); ABG PCO2 49 mmHg (35-45); PO2, ARTERIAL BG 59.1 mmHg (79.0-87.0)
[2024-03-19 01:21] LABS: ABG A-A DIFF O2 598.8 mmHg (10-20.0); O2 DEVICE,BLOOD GAS VENT (ROOM AIR); PEEP,BG 8 cm H2O; SITE, BLOOD GAS ARTERIAL LINE; VT, ABG 420 ml
[2024-03-19 01:53] LABS: TROPONIN I-HIGH SENSITIVITY 2041 ng/L (<51)
[2024-03-19] MEDS ORDERED: PROPOFOL 1000 MG/ISO-OSM 100 ML IV PRN (02:45)
[2024-03-19 04:49] LABS: CALCIUM, TOTAL 7.4 mg/dL (8.8-10.5); CREATININE 1.45 mg/dL (0.60-1.30); POTASSIUM 3.7 mmol/L (3.5-5.1)
[2024-03-19 05:06] LABS: TROPONIN I-HIGH SENSITIVITY 1183 ng/L (<51)
[2024-03-19 05:08] LABS: BASOPHILS % (AUTO) 0.1 % (0.0-2.0); EOSINOPHILS % (AUTO) 0 % (1.0-6.0); HEMATOCRIT 40.8 % (36-46); HEMOGLOBIN 13.1 g/dL (12.0-16.0); LYMPHOCYTES # (AUTO) 1.6 K/uL (1.0-4.8); MEAN CORPUSCULAR HEMOGLOBIN 28.6 pg (26.0-34.0); MEAN CORPUSCULAR HGB CONC 32.1 G/dL (31.0-37.0); MEAN CORPUSCULAR VOLUME 89 fL (80-100); MONOCYTES # (AUTO) 0.5 K/uL (0.1-1.0); NEUTROPHILS # (AUTO) 15.9 K/uL (1.8-7.7); PLATELET COUNT (AUTO) 229 K/uL (150-450); RED BLOOD CELL COUNT(AUTO) 4.58 MIL/uL (4.00-5.20); RED CELL DISTRIBUTION WIDTH 16.3 % (11.5-14.5); WHITE BLOOD COUNT (AUTO) 18.1 K/uL (4.5-11.0)
[2024-03-19 05:09] LABS: NEUTROPHILS % (AUTO) 87.9 % (40.0-70.0)
[2024-03-19] MEDS: PROPOFOL 1000 MG/ISO-OSM 100 ML IV PRN (06:12)
[2024-03-19] MEDS ORDERED: IOHEXOL 350 MG/ML 100 ML VIAL ONE (07:41)
[2024-03-19] MEDS ORDERED: SODIUM CHLORIDE 0.9% 100 ML ONE (07:41)
[2024-03-19] MEDS: *CLINICAL-LEVOFLOXACIN IVPB DOSING CLINICAL ONE (08:14)
[2024-03-19 09:53] LABS: INFLUENZA A-RTPCR,COMBO NEGATIVE (NEGATIVE); INFLUENZA B-RTPCR,COMBO NEGATIVE (NEGATIVE); RESPIRATORY SYNCYTIAL VRS-PCR NEGATIVE (NEGATIVE); SARS COVID19 RTPCR, COMBO NEGATIVE (NEGATIVE)
[2024-03-19] MEDS: VANCOMYCIN 1.5 GM/WATER(PEG) 300 ML IV SCH (10:52)
[2024-03-19] MEDS ORDERED: SODIUM CHLORIDE 0.9% 250 ML IV ONE (11:32)
[2024-03-19] MEDS: ASPIRIN 81 MG CHEWABLE TABLET PO SCH (11:37)
[2024-03-19] MEDS: ATORVASTATIN CALCIUM 40 MG TABLET PO SCH (11:37)
[2024-03-19] MEDS: PANTOPRAZOLE SODIUM 40 MG/VIAL IVP SCH (11:37)
[2024-03-19] MEDS: MEROPENEM 1 GM in SODIUM CHLORIDE 0.9% 100 ML IV SCH (14:16)
[2024-03-19 18:42] LABS: APPEARANCE,URINE CLEAR (CLEAR); BILIRUBIN,URINE NEGATIVE (NEGATIVE); COLOR,URINE LIGHT YELLOW (YELLOW); GLUCOSE, URINE (UA) NEGATIVE (NEGATIVE); KETONES,URINE NEGATIVE (NEGATIVE); LEUKOCYTE ESTERASE ,URINE NEGATIVE (NEGATIVE); NITRATE,URINE NEGATIVE (NEGATIVE); OCCULT BLOOD,URINE MODERATE (NEGATIVE); PROTEIN,URINE 30-70 mg/dL (NEGATIVE); UROBILINOGEN,URINE <=1.0 mg/dL (<=1.0)
[2024-03-19 18:46] LABS: CREATININE,URINE RANDOM 100.7 mg/dL (30.0-125.0)
[2024-03-19 19:35] LABS: BACTERIA,URINE Few /HPF (None Seen)
[2024-03-19] MEDS: ETHYL ALCOHOL 62% ANTISEPTIC NASAL SANITIZER 0.6 ML AMPUL NASAL SCH (20:34)
[2024-03-20] VITALS (16 sets, daily range): BP systolic 126–175; BP diastolic 55–76; PULSE 87–109; RESP 20–22; TEMP 99.6–100.5; O2SAT 94–100
[2024-03-20 06:12] LABS: BASOPHILS % (AUTO) 0.1 % (0.0-2.0); EOSINOPHILS % (AUTO) 0.1 % (1.0-6.0); HEMOGLOBIN 11.1 g/dL (12.0-16.0); LYMPHOCYTES # (AUTO) 2.5 K/uL (1.0-4.8); LYMPHOCYTES % (AUTO) 17.4 % (22.0-44.0); MEAN CORPUSCULAR HGB CONC 32.6 G/dL (31.0-37.0); MEAN CORPUSCULAR VOLUME 89 fL (80-100); MONOCYTES # (AUTO) 0.8 K/uL (0.1-1.0); MONOCYTES % (AUTO) 5.6 % (2.0-9.0); NEUTROPHILS % (AUTO) 76.8 % (40.0-70.0); PLATELET COUNT (AUTO) 173 K/uL (150-450); RED BLOOD CELL COUNT(AUTO) 3.81 MIL/uL (4.00-5.20); RED CELL DISTRIBUTION WIDTH 16.4 % (11.5-14.5); WHITE BLOOD COUNT (AUTO) 14.3 K/uL (4.5-11.0)
[2024-03-20 06:32] LABS: ANION GAP 8 mmol/L (8-16); CARBON DIOXIDE 26 mmol/L (22-29); CHLORIDE 108 mmol/L (98-107); CREATININE 0.73 mg/dL (0.60-1.30); GLOMERULAR FILTR. RATE CALC > 60 mL/min (>60); GLUCOSE,RANDOM 127 mg/dL (70-110); PHOSPHORUS 2.2 mg/dL (2.5-4.9); POTASSIUM 3.8 mmol/L (3.5-5.1); SODIUM SERUM 142 mmol/L (136-145); UREA NITROGEN, BLOOD 17 mg/dL (7-18)
[2024-03-20] MEDS: VANCOMYCIN 1.25 GM/WATER(PEG) 250 ML IV SCH (08:16)
[2024-03-20] MEDS: SODIUM,POTASSIUM PHOSPHATES POWDER PACKET PO SCH (09:22)
[2024-03-20] MEDS ORDERED: SODIUM CHLORIDE 0.9% 250 ML IV ONE ×2 (09:41→21:14)
[2024-03-20] MEDS: PERFLUTREN PROTEIN-A MICROSPHERES 0.22 MG/ML 3 ML VIAL IVP ONE (09:54)
[2024-03-20] MEDS: MEROPENEM 1 GM in SODIUM CHLORIDE 0.9% 100 ML IV SCH (10:11)
[2024-03-20] MEDS: LEVOFLOXACIN 750 MG/D5% WATER 150 ML IV SCH (11:18)
[2024-03-20] MEDS ORDERED: LEVOFLOXACIN 750 MG/D5% WATER 150 ML IV SCH (17:00)
[2024-03-21] VITALS (13 sets, daily range): BP systolic 121–147; BP diastolic 56–67; PULSE 68–96; RESP 22; TEMP 99–100.2; O2SAT 92–98
[2024-03-21 05:56] LABS: BASOPHILS % (AUTO) 0.4 % (0.0-2.0); HEMATOCRIT 29.6 % (36-46); HEMOGLOBIN 9.6 g/dL (12.0-16.0); LYMPHOCYTES # (AUTO) 2.7 K/uL (1.0-4.8); LYMPHOCYTES % (AUTO) 23.6 % (22.0-44.0); MEAN CORPUSCULAR HEMOGLOBIN 28.8 pg (26.0-34.0); MEAN CORPUSCULAR HGB CONC 32.4 G/dL (31.0-37.0); MEAN CORPUSCULAR VOLUME 89 fL (80-100); MONOCYTES # (AUTO) 0.5 K/uL (0.1-1.0); PLATELET COUNT (AUTO) 136 K/uL (150-450); RED BLOOD CELL COUNT(AUTO) 3.33 MIL/uL (4.00-5.20); RED CELL DISTRIBUTION WIDTH 16.2 % (11.5-14.5); WHITE BLOOD COUNT (AUTO) 11.3 K/uL (4.5-11.0)
[2024-03-21 06:14] LABS: ALANINE AMINOTRANSFERASE 202 U/L (12-78); ALBUMIN 1.9 g/dL (3.4-5.0); ALKALINE PHOSPHATASE 61 U/L (46-116); ANION GAP 4 mmol/L (8-16); ASPARTATE AMINOTRANSFERASE 183 U/L (15-37); BILIRUBIN,TOTAL 0.2 mg/dL (0.1-1.0); CALCIUM, TOTAL 7.9 mg/dL (8.8-10.5); CARBON DIOXIDE 30 mmol/L (22-29); CHLORIDE 109 mmol/L (98-107); CREATININE 0.65 mg/dL (0.60-1.30); GLOMERULAR FILTR. RATE CALC > 60 mL/min (>60); GLUCOSE,RANDOM 103 mg/dL (70-110); PHOSPHORUS 1.7 mg/dL (2.5-4.9); POTASSIUM 3.5 mmol/L (3.5-5.1); SODIUM SERUM 143 mmol/L (136-145); TOTAL PROTEIN, SERUM 5.3 g/dL (6.4-8.2); UREA NITROGEN, BLOOD 18 mg/dL (7-18); VANCOMYCIN,RANDOM 15.5 mcg/mL (25.0-50.0)
[2024-03-21 08:50] LABS: ABG BASE EXCESS 3.8 mmol/L (-2.0-3.0); ABG CARBOXYHEMOGLOBIN 0.1 % (0.5-1.5); ABG METHEMOGLOBIN 0.3 % (0.0-1.5); ABG OXYGEN CONTENT 14.7 mL/dL (15.0-23.0); ABG OXYGEN SATURATION 92.8 % (94.0-98.0); ABG OXYHEMOGLOBIN 92.4 % (94.0-98.0); ABG PCO2 53 mmHg (32.0-45.0); ABG PH 7.361 (7.350-7.450); ABG TOTAL HEMOGLOBIN 11.3 G/dL (12.0-16.0); ALLEN TEST, BLOOD GAS Positive; O2 DEVICE,BLOOD GAS VENTILATOR (ROOM AIR); PEEP,BG 5 cm H2O; PO2, ARTERIAL BG 68.2 mmHg (83.0-108.0); SITE, BLOOD GAS RT RADIAL; SOURCE, BLOOD GAS ARTERIAL; TEMPERATURE, FAHRENHEIT, BG 100.2 FAHREN (96.0-98.6); VT, ABG 420 ml
[2024-03-21 08:51] LABS: SPONTANEOUS VT, BG 349 ml
[2024-03-21] MEDS: SODIUM PHOS,M-BASIC-D-BASIC 20 MEQ in DEXTROSE 5%-WATER 100 ML IV ONE (09:40)
[2024-03-21] MEDS: DEXMEDETOMIDINE HCL 400 MCG in SODIUM CHLORIDE 0.9% 96 ML IV PRN (17:15)
[2024-03-22] VITALS (17 sets, daily range): BP systolic 119–144; BP diastolic 55–70; PULSE 65–87; RESP 2–31; TEMP 98.4–100.3; O2SAT 92–99
[2024-03-22] MEDS ORDERED: SODIUM CHLORIDE 0.9% 250 ML IV ONE (02:09)
[2024-03-22 08:16] LABS: BASOPHILS % (AUTO) 0.7 % (0.0-2.0); EOSINOPHILS % (AUTO) 3.4 % (1.0-6.0); HEMATOCRIT 29.1 % (36-46); HEMOGLOBIN 9.7 g/dL (12.0-16.0); LYMPHOCYTES # (AUTO) 2.2 K/uL (1.0-4.8); LYMPHOCYTES % (AUTO) 33.6 % (22.0-44.0); MEAN CORPUSCULAR HEMOGLOBIN 29.3 pg (26.0-34.0); MEAN CORPUSCULAR HGB CONC 33.3 G/dL (31.0-37.0); MEAN CORPUSCULAR VOLUME 88 fL (80-100); MONOCYTES # (AUTO) 0.5 K/uL (0.1-1.0); MONOCYTES % (AUTO) 6.9 % (2.0-9.0); NEUTROPHILS # (AUTO) 3.6 K/uL (1.8-7.7); NEUTROPHILS % (AUTO) 55.4 % (40.0-70.0); PLATELET COUNT (AUTO) 160 K/uL (150-450); RED BLOOD CELL COUNT(AUTO) 3.31 MIL/uL (4.00-5.20); RED CELL DISTRIBUTION WIDTH 15.1 % (11.5-14.5); WHITE BLOOD COUNT (AUTO) 6.5 K/uL (4.5-11.0)
[2024-03-22 08:36] LABS: ALANINE AMINOTRANSFERASE 146 U/L (12-78); ALBUMIN 1.7 g/dL (3.4-5.0); ALKALINE PHOSPHATASE 65 U/L (46-116); ANION GAP 7 mmol/L (8-16); ASPARTATE AMINOTRANSFERASE 99 U/L (15-37); BILIRUBIN,TOTAL 0.3 mg/dL (0.1-1.0); CALCIUM, TOTAL 7.7 mg/dL (8.8-10.5); CARBON DIOXIDE 28 mmol/L (22-29); CHLORIDE 107 mmol/L (98-107); CREATININE 0.41 mg/dL (0.60-1.30); GLOMERULAR FILTR. RATE CALC > 60 mL/min (>60); GLUCOSE,RANDOM 108 mg/dL (70-110); PHOSPHORUS 2.7 mg/dL (2.5-4.9); POTASSIUM 3.5 mmol/L (3.5-5.1); SODIUM SERUM 142 mmol/L (136-145); TOTAL PROTEIN, SERUM 5.4 g/dL (6.4-8.2); UREA NITROGEN, BLOOD 14 mg/dL (7-18)
[2024-03-22 10:07] LABS: S PNEUMO SOURCE Urine; STREP PNEUMONIAE AG URINE Negative (Negative)
[2024-03-22 12:07] LABS: LEGIONELLA PNEUMO AG URINE Negative (Negative)
[2024-03-22] MEDS ORDERED: ACETYLCYSTEINE 10% 100 MG/ML 4 ML NEB SOLUTION NEB SCH (14:00)
[2024-03-22] MEDS: ALBUTEROL SULFATE 2.5 MG/0.5 ML NEB SOLUTION NEB PRN (14:51)
[2024-03-22] MEDS: ACETYLCYSTEINE 10% 100 MG/ML 4 ML NEB SOLUTION NEB SCH (14:52)
[2024-03-22] MEDS: AMINO ACIDS/PROTEIN HYDROLYS 30 ML LIQUID TUBE GT SCH (17:42)
[2024-03-23] VITALS (18 sets, daily range): BP systolic 104–149; BP diastolic 50–70; PULSE 63–86; RESP 22–24; TEMP 97.4–99.1; O2SAT 92–97
[2024-03-23 05:55] LABS: BASOPHILS % (AUTO) 0.3 % (0.0-2.0); EOSINOPHILS % (AUTO) 4.6 % (1.0-6.0); HEMATOCRIT 29.6 % (36-46); HEMOGLOBIN 9.9 g/dL (12.0-16.0); LYMPHOCYTES # (AUTO) 1.7 K/uL (1.0-4.8); LYMPHOCYTES % (AUTO) 34.1 % (22.0-44.0); MEAN CORPUSCULAR HEMOGLOBIN 29.3 pg (26.0-34.0); MEAN CORPUSCULAR HGB CONC 33.5 G/dL (31.0-37.0); MEAN CORPUSCULAR VOLUME 88 fL (80-100); MONOCYTES # (AUTO) 0.4 K/uL (0.1-1.0); MONOCYTES % (AUTO) 7.8 % (2.0-9.0); NEUTROPHILS # (AUTO) 2.7 K/uL (1.8-7.7); NEUTROPHILS % (AUTO) 53.2 % (40.0-70.0); PLATELET COUNT (AUTO) 187 K/uL (150-450); RED BLOOD CELL COUNT(AUTO) 3.39 MIL/uL (4.00-5.20); RED CELL DISTRIBUTION WIDTH 15.2 % (11.5-14.5); WHITE BLOOD COUNT (AUTO) 5.1 K/uL (4.5-11.0)
[2024-03-23 06:08] LABS: ANION GAP 4 mmol/L (8-16); CALCIUM, TOTAL 8.1 mg/dL (8.8-10.5); CARBON DIOXIDE 30 mmol/L (22-29); CHLORIDE 109 mmol/L (98-107); CREATININE 0.45 mg/dL (0.60-1.30); GLOMERULAR FILTR. RATE CALC > 60 mL/min (>60); GLUCOSE,RANDOM 108 mg/dL (70-110); SODIUM SERUM 143 mmol/L (136-145); UREA NITROGEN, BLOOD 14 mg/dL (7-18)
[2024-03-23] MEDS: POTASSIUM CHLORIDE 10% 40 MEQ/30 ML LIQUID UDCUP NG PRN (08:18)
[2024-03-23] MEDS: DEXTRAN 70 0.1%/HYPROMELL 0.3% 0.9 ML OPHTHALMIC SOLUTION [PF] OU SCH (17:13)
[2024-03-23] MEDS ORDERED: SODIUM CHLORIDE 0.9% 250 ML IV ONE (17:15)
[2024-03-23] MEDS ORDERED: 0.9% SODIUM CHLORIDE 5 ML NEB SOLUTION NEB ONE (19:11)
[2024-03-24] VITALS (18 sets, daily range): BP systolic 111–152; BP diastolic 53–77; PULSE 70–89; RESP 22–24; TEMP 98.4–100.1; O2SAT 91–96
[2024-03-24] MEDS: LORazepam 2 MG/ML VIAL IVP PRN (00:33)
[2024-03-24] MEDS ORDERED: 0.9% SODIUM CHLORIDE 5 ML NEB SOLUTION NEB ONE (01:31)
[2024-03-24] MEDS ORDERED: SODIUM CHLORIDE 0.9% 250 ML IV ONE (08:03)
[2024-03-24 14:36] LABS: ANION GAP 8 mmol/L (8-16); CARBON DIOXIDE 29 mmol/L (22-29); CHLORIDE 108 mmol/L (98-107); CREATININE 0.49 mg/dL (0.60-1.30); GLOMERULAR FILTR. RATE CALC > 60 mL/min (>60); GLUCOSE,RANDOM 111 mg/dL (70-110); POTASSIUM 3.8 mmol/L (3.5-5.1); SODIUM SERUM 145 mmol/L (136-145); UREA NITROGEN, BLOOD 18 mg/dL (7-18)
[2024-03-24 16:32] LABS: ALANINE AMINOTRANSFERASE 90 U/L (12-78); ALBUMIN 1.8 g/dL (3.4-5.0); ALKALINE PHOSPHATASE 101 U/L (46-116); ANION GAP 7 mmol/L (8-16); ASPARTATE AMINOTRANSFERASE 69 U/L (15-37); BILIRUBIN,TOTAL 0.4 mg/dL (0.1-1.0); CALCIUM, TOTAL 7.9 mg/dL (8.8-10.5); CARBON DIOXIDE 30 mmol/L (22-29); CHLORIDE 108 mmol/L (98-107); CREATININE 0.46 mg/dL (0.60-1.30); GLOMERULAR FILTR. RATE CALC > 60 mL/min (>60); GLUCOSE,RANDOM 115 mg/dL (70-110); POTASSIUM 3.3 mmol/L (3.5-5.1); SODIUM SERUM 145 mmol/L (136-145); TOTAL PROTEIN, SERUM 5.5 g/dL (6.4-8.2); UREA NITROGEN, BLOOD 16 mg/dL (7-18)
[2024-03-24 17:44] LABS: APPEARANCE,URINE CLEAR (CLEAR); BILIRUBIN,URINE NEGATIVE (NEGATIVE); COLOR,URINE LIGHT YELLOW (YELLOW); GLUCOSE, URINE (UA) NEGATIVE (NEGATIVE); KETONES,URINE NEGATIVE (NEGATIVE); LEUKOCYTE ESTERASE ,URINE NEGATIVE (NEGATIVE); NITRATE,URINE NEGATIVE (NEGATIVE); OCCULT BLOOD,URINE SMALL (NEGATIVE); PROTEIN,URINE TRACE mg/dL (NEGATIVE); SPECIFIC GRAVITIY, URINE 1.026 (1.003-1.030); UROBILINOGEN,URINE <=1.0 mg/dL (<=1.0)
[2024-03-24 18:01] LABS: BACTERIA,URINE None Seen /HPF (None Seen); WBC,URINE 0-2 /HPF (0-5)
[2024-03-24] MEDS: VANCOMYCIN 1.5 GM/WATER(PEG) 300 ML IV SCH (20:05)
[2024-03-24] MEDS: ACYCLOVIR 600 MG in DEXTROSE 5%-WATER 100 ML IV SCH (21:40)
[2024-03-25] VITALS (18 sets, daily range): BP systolic 117–134; BP diastolic 55–70; PULSE 69–82; RESP 22–24; TEMP 99.5–100.3; O2SAT 92–96
[2024-03-25 06:08] LABS: ANION GAP 4 mmol/L (8-16); CALCIUM, TOTAL 8.3 mg/dL (8.8-10.5); CARBON DIOXIDE 32 mmol/L (22-29); CHLORIDE 108 mmol/L (98-107); CREATININE 0.44 mg/dL (0.60-1.30); GLOMERULAR FILTR. RATE CALC > 60 mL/min (>60); GLUCOSE,RANDOM 110 mg/dL (70-110); POTASSIUM 3.7 mmol/L (3.5-5.1); SODIUM SERUM 144 mmol/L (136-145); UREA NITROGEN, BLOOD 16 mg/dL (7-18)
[2024-03-25 16:06] LABS: ABG BASE EXCESS 5.6 mmol/L (-2.0-3.0); ABG CARBOXYHEMOGLOBIN 0.3 % (0.5-1.5); ABG METHEMOGLOBIN 0.7 % (0.0-1.5); ABG OXYGEN CONTENT 13.9 mL/dL (15.0-23.0); ABG OXYGEN SATURATION 92.5 % (94.0-98.0); ABG OXYHEMOGLOBIN 91.6 % (94.0-98.0); ABG PCO2 42 mmHg (32.0-45.0); ABG PH 7.466 (7.350-7.450); ABG TOTAL HEMOGLOBIN 10.8 G/dL (12.0-16.0); PO2, ARTERIAL BG 65.7 mmHg (83.0-108.0); SOURCE, BLOOD GAS ARTERIAL; TEMPERATURE, FAHRENHEIT, BG 99.7 FAHREN (96.0-98.6)
[2024-03-25 16:07] LABS: ALLEN TEST, BLOOD GAS POS; SITE, BLOOD GAS LFT BRACHIAL
[2024-03-25 16:08] LABS: O2 DEVICE,BLOOD GAS VENTILATOR (ROOM AIR); PEEP,BG 5 cm H2O; VT, ABG 420 ml
[2024-03-25] MEDS: QUEtiapine FUMARATE 25 MG TABLET PO SCH (20:21)
[2024-03-26] VITALS (23 sets, daily range): BP systolic 90–141; BP diastolic 46–72; PULSE 61–82; RESP 22–23; TEMP 97.8–99.4; O2SAT 90–98
[2024-03-26] MEDS ORDERED: 0.9% SODIUM CHLORIDE 5 ML NEB SOLUTION NEB ONE (01:43)
[2024-03-26 06:27] LABS: ANION GAP 8 mmol/L (8-16); CALCIUM, TOTAL 8.1 mg/dL (8.8-10.5); CARBON DIOXIDE 30 mmol/L (22-29); CHLORIDE 105 mmol/L (98-107); CREATININE 0.41 mg/dL (0.60-1.30); GLOMERULAR FILTR. RATE CALC > 60 mL/min (>60); GLUCOSE,RANDOM 106 mg/dL (70-110); POTASSIUM 3.3 mmol/L (3.5-5.1); SODIUM SERUM 143 mmol/L (136-145); UREA NITROGEN, BLOOD 19 mg/dL (7-18); VANCOMYCIN,RANDOM 18.1 mcg/mL (25.0-50.0)
[2024-03-26 06:29] LABS: BASOPHILS % (AUTO) 0.5 % (0.0-2.0); EOSINOPHILS % (AUTO) 4.4 % (1.0-6.0); HEMATOCRIT 31.7 % (36-46); HEMOGLOBIN 10.5 g/dL (12.0-16.0); LYMPHOCYTES # (AUTO) 1.9 K/uL (1.0-4.8); LYMPHOCYTES % (AUTO) 31.1 % (22.0-44.0); MEAN CORPUSCULAR HEMOGLOBIN 28.8 pg (26.0-34.0); MEAN CORPUSCULAR VOLUME 87 fL (80-100); MONOCYTES # (AUTO) 0.4 K/uL (0.1-1.0); MONOCYTES % (AUTO) 6.4 % (2.0-9.0); NEUTROPHILS # (AUTO) 3.6 K/uL (1.8-7.7); NEUTROPHILS % (AUTO) 57.6 % (40.0-70.0); PLATELET COUNT (AUTO) 307 K/uL (150-450); RED BLOOD CELL COUNT(AUTO) 3.63 MIL/uL (4.00-5.20); RED CELL DISTRIBUTION WIDTH 15.2 % (11.5-14.5); WHITE BLOOD COUNT (AUTO) 6.3 K/uL (4.5-11.0)
[2024-03-26 10:59] LABS: ABG BASE EXCESS 5.8 mmol/L (-2.0-3.0); ABG CARBOXYHEMOGLOBIN 0.3 % (0.5-1.5); ABG METHEMOGLOBIN 0.7 % (0.0-1.5); ABG OXYGEN CONTENT 13.8 mL/dL (15.0-23.0); ABG OXYGEN SATURATION 90.7 % (94.0-98.0); ABG OXYHEMOGLOBIN 89.8 % (94.0-98.0); ABG PCO2 45 mmHg (32.0-45.0); ABG PH 7.443 (7.350-7.450); ABG TOTAL HEMOGLOBIN 10.9 G/dL (12.0-16.0); ALLEN TEST, BLOOD GAS Positive; O2 DEVICE,BLOOD GAS VENTILATOR (ROOM AIR); PEEP,BG 5 cm H2O; PO2, ARTERIAL BG 60.7 mmHg (83.0-108.0); SITE, BLOOD GAS RT RADIAL; SOURCE, BLOOD GAS ARTERIAL; SPONTANEOUS VT, BG 342 ml; TEMPERATURE, FAHRENHEIT, BG 98.3 FAHREN (96.0-98.6); VT, ABG 420 ml
[2024-03-27] VITALS (22 sets, daily range): BP systolic 92–125; BP diastolic 57–73; PULSE 65–86; RESP 20–22; TEMP 98.4–99.3; O2SAT 90–95
[2024-03-27 06:15] LABS: ALANINE AMINOTRANSFERASE 58 U/L (12-78); ALBUMIN 1.7 g/dL (3.4-5.0); ALKALINE PHOSPHATASE 97 U/L (46-116); ANION GAP 2 mmol/L (8-16); ASPARTATE AMINOTRANSFERASE 44 U/L (15-37); BILIRUBIN,TOTAL 0.3 mg/dL (0.1-1.0); CARBON DIOXIDE 32 mmol/L (22-29); CHLORIDE 106 mmol/L (98-107); CREATININE 0.39 mg/dL (0.60-1.30); GLOMERULAR FILTR. RATE CALC > 60 mL/min (>60); GLUCOSE,RANDOM 113 mg/dL (70-110); PHOSPHORUS 3.3 mg/dL (2.5-4.9); POTASSIUM 3.4 mmol/L (3.5-5.1); SODIUM SERUM 140 mmol/L (136-145); TOTAL PROTEIN, SERUM 5.3 g/dL (6.4-8.2); TRIGLYCERIDES 374 mg/dL (15-150); UREA NITROGEN, BLOOD 16 mg/dL (7-18)
[2024-03-27 06:20] LABS: BASOPHILS % (AUTO) 0.4 % (0.0-2.0); EOSINOPHILS % (AUTO) 4.6 % (1.0-6.0); HEMOGLOBIN 10.3 g/dL (12.0-16.0); LYMPHOCYTES # (AUTO) 1.3 K/uL (1.0-4.8); LYMPHOCYTES % (AUTO) 26.1 % (22.0-44.0); MEAN CORPUSCULAR HEMOGLOBIN 28.8 pg (26.0-34.0); MEAN CORPUSCULAR HGB CONC 33.4 G/dL (31.0-37.0); MEAN CORPUSCULAR VOLUME 86 fL (80-100); MONOCYTES # (AUTO) 0.4 K/uL (0.1-1.0); MONOCYTES % (AUTO) 7.1 % (2.0-9.0); NEUTROPHILS # (AUTO) 3.1 K/uL (1.8-7.7); NEUTROPHILS % (AUTO) 61.8 % (40.0-70.0); PLATELET COUNT (AUTO) 304 K/uL (150-450); RED BLOOD CELL COUNT(AUTO) 3.59 MIL/uL (4.00-5.20); RED CELL DISTRIBUTION WIDTH 15.3 % (11.5-14.5)
[2024-03-27] MEDS ORDERED: SODIUM CHLORIDE 0.9% 250 ML IV ONE (08:18)
[2024-03-27] MEDS: IPRATROPIUM BROMIDE 0.5 MG/2.5 ML NEB SOLUTION NEB SCH (13:26)
[2024-03-27] MEDS: ALBUTEROL SULFATE 2.5 MG/0.5 ML NEB SOLUTION NEB SCH (13:26)
[2024-03-27] MEDS: ACETYLCYSTEINE 10% 100 MG/ML 4 ML NEB SOLUTION NEB SCH (20:53)
[2024-03-28] VITALS (22 sets, daily range): BP systolic 92–130; BP diastolic 46–75; PULSE 58–99; RESP 21–28; TEMP 97.4–99.2; O2SAT 90–95
[2024-03-28 05:57] LABS: BASOPHILS % (AUTO) 0.5 % (0.0-2.0); HEMATOCRIT 31.8 % (36-46); HEMOGLOBIN 10.3 g/dL (12.0-16.0); LYMPHOCYTES # (AUTO) 1.2 K/uL (1.0-4.8); LYMPHOCYTES % (AUTO) 23.7 % (22.0-44.0); MEAN CORPUSCULAR HEMOGLOBIN 28.3 pg (26.0-34.0); MEAN CORPUSCULAR HGB CONC 32.5 G/dL (31.0-37.0); MEAN CORPUSCULAR VOLUME 87 fL (80-100); MONOCYTES # (AUTO) 0.4 K/uL (0.1-1.0); MONOCYTES % (AUTO) 6.9 % (2.0-9.0); NEUTROPHILS # (AUTO) 3.2 K/uL (1.8-7.7); NEUTROPHILS % (AUTO) 62.9 % (40.0-70.0); PLATELET COUNT (AUTO) 331 K/uL (150-450); RED BLOOD CELL COUNT(AUTO) 3.65 MIL/uL (4.00-5.20); WHITE BLOOD COUNT (AUTO) 5.1 K/uL (4.5-11.0)
[2024-03-28 05:59] LABS: ANION GAP 6 mmol/L (8-16); CALCIUM, TOTAL 8.4 mg/dL (8.8-10.5); CARBON DIOXIDE 31 mmol/L (22-29); CHLORIDE 106 mmol/L (98-107); CREATININE 0.38 mg/dL (0.60-1.30); GLOMERULAR FILTR. RATE CALC > 60 mL/min (>60); GLUCOSE,RANDOM 104 mg/dL (70-110); POTASSIUM 3.3 mmol/L (3.5-5.1); SODIUM SERUM 143 mmol/L (136-145); UREA NITROGEN, BLOOD 17 mg/dL (7-18)
[2024-03-28] MEDS: POTASSIUM CHL 10 MEQ/WATER 50 ML IV PRN (06:40)
[2024-03-28] MEDS: FUROSEMIDE 20 MG/2 ML VIAL IVP ONE (10:20)
[2024-03-28] MEDS ORDERED: SODIUM CHLORIDE 0.9% 250 ML IV ONE (13:20)
[2024-03-28] MEDS: LORazepam 2 MG/ML VIAL IVP PRN (16:27)
[2024-03-28 18:20] LABS: GLUCOMETER DEV NAME(LOC) ICU.S6; GLUCOSE,POINT OF CARE 118 MG/DL (70-110)
[2024-03-29] VITALS (17 sets, daily range): BP systolic 86–158; BP diastolic 48–74; PULSE 66–113; RESP 12–25; TEMP 98–101.5; O2SAT 89–98
[2024-03-29 06:12] LABS: BASOPHILS % (AUTO) 0.9 % (0.0-2.0); EOSINOPHILS % (AUTO) 4.6 % (1.0-6.0); HEMATOCRIT 33.9 % (36-46); HEMOGLOBIN 11.1 g/dL (12.0-16.0); LYMPHOCYTES % (AUTO) 24.6 % (22.0-44.0); MEAN CORPUSCULAR HEMOGLOBIN 28.3 pg (26.0-34.0); MEAN CORPUSCULAR HGB CONC 32.7 G/dL (31.0-37.0); MEAN CORPUSCULAR VOLUME 87 fL (80-100); MONOCYTES # (AUTO) 0.5 K/uL (0.1-1.0); MONOCYTES % (AUTO) 6.3 % (2.0-9.0); NEUTROPHILS # (AUTO) 5.1 K/uL (1.8-7.7); NEUTROPHILS % (AUTO) 63.6 % (40.0-70.0); PLATELET COUNT (AUTO) 387 K/uL (150-450); RED BLOOD CELL COUNT(AUTO) 3.92 MIL/uL (4.00-5.20); RED CELL DISTRIBUTION WIDTH 15.4 % (11.5-14.5); WHITE BLOOD COUNT (AUTO) 8.1 K/uL (4.5-11.0)
[2024-03-29 06:29] LABS: ANION GAP 8 mmol/L (8-16); CALCIUM, TOTAL 8.5 mg/dL (8.8-10.5); CARBON DIOXIDE 29 mmol/L (22-29); CHLORIDE 106 mmol/L (98-107); CREATININE 0.49 mg/dL (0.60-1.30); GLOMERULAR FILTR. RATE CALC > 60 mL/min (>60); GLUCOSE,RANDOM 99 mg/dL (70-110); POTASSIUM 3.5 mmol/L (3.5-5.1); SODIUM SERUM 143 mmol/L (136-145); UREA NITROGEN, BLOOD 19 mg/dL (7-18)
[2024-03-29] MEDS ORDERED: SODIUM CHLORIDE 0.9% 250 ML IV ONE (15:30)
[2024-03-29 18:37] LABS: APPEARANCE,URINE CLEAR (CLEAR); BILIRUBIN,URINE NEGATIVE (NEGATIVE); COLOR,URINE LIGHT YELLOW (YELLOW); GLUCOSE, URINE (UA) NEGATIVE (NEGATIVE); KETONES,URINE NEGATIVE (NEGATIVE); LEUKOCYTE ESTERASE ,URINE NEGATIVE (NEGATIVE); NITRATE,URINE NEGATIVE (NEGATIVE); OCCULT BLOOD,URINE MODERATE (NEGATIVE); PH,URINE 6.5 (5.0-8.0); PROTEIN,URINE NEGATIVE (NEGATIVE); SPECIFIC GRAVITIY, URINE 1.019 (1.003-1.030); UROBILINOGEN,URINE <=1.0 mg/dL (<=1.0)
[2024-03-29 19:45] LABS: BACTERIA,URINE None Seen /HPF (None Seen); SQUAMOUS EPITHELIAL CELL,UR None Seen /LPF (None Seen); WBC,URINE 0-2 /HPF (0-5)
[2024-03-30] VITALS (21 sets, daily range): BP systolic 112–153; BP diastolic 65–83; PULSE 64–84; RESP 22–29; TEMP 97–98; O2SAT 89–97
[2024-03-30 07:17] LABS: ANION GAP 7 mmol/L (8-16); CALCIUM, TOTAL 8.6 mg/dL (8.8-10.5); CARBON DIOXIDE 28 mmol/L (22-29); CHLORIDE 107 mmol/L (98-107); GLOMERULAR FILTR. RATE CALC > 60 mL/min (>60); GLUCOSE,RANDOM 106 mg/dL (70-110); POTASSIUM 3.5 mmol/L (3.5-5.1); SODIUM SERUM 142 mmol/L (136-145); UREA NITROGEN, BLOOD 19 mg/dL (7-18)
[2024-03-30 07:53] LABS: VANCOMYCIN,RANDOM 21.1 mcg/mL (25.0-50.0)
[2024-03-30] MEDS: DOXYCYCLINE HYCLATE 100 MG in DEXTROSE 5%-WATER 100 ML IV SCH (07:59)
[2024-03-30] MEDS: POTASSIUM CHLORIDE 10% 40 MEQ/30 ML LIQUID UDCUP NG PRN (08:00)
[2024-03-30] MEDS ORDERED: LIDOCAINE 1% 10 ML VIAL SQ ONE (12:15)
[2024-03-30] MEDS: MIDAZOLAM HCL 100 MG in SODIUM CHLORIDE 0.9% 180 ML IV PRN (12:21)
[2024-03-30] MEDS: LIDOCAINE/PF 1% 5 ML VIAL SQ ONE (13:14)
[2024-03-30 16:21] LABS: CSF TOTAL VOLUME 19.5 mL; CSF TUBE NUMBER 1
[2024-03-30 16:22] LABS: APPEARANCE,CSF CLEAR (CLEAR); COLOR,CSF COLORLESS (COLORLESS)
[2024-03-30 16:23] LABS: APPEARANCE2,CSF CLEAR (CLEAR); COLOR2,CSF COLORLESS (COLORLESS); CSF 2ND TUBE NUMBER 4
[2024-03-30 16:41] LABS: GLUCOSE, CSF 60 mg/dL (50-80); TOTAL PROTEIN, CSF 49 mg/dL (15-45)
[2024-03-30] MEDS ORDERED: SODIUM CHLORIDE 0.9% 250 ML IV ONE ×2 (17:39→20:36)
[2024-03-30 19:03] LABS: MONOCYTES1,CSF 30 %; NEUTROPHILS1,CSF 0 %
[2024-03-30 19:04] LABS: LYMPHOCYTES1,CSF 70 %
[2024-03-30 19:05] LABS: NEUTROPHILS2,CSF 0 %
[2024-03-30 19:06] LABS: LYMPHOCYTES2,CSF 70 %
[2024-03-30 19:11] LABS: MONOCYTES2,CSF 30 %
[2024-03-30 19:16] LABS: OTHER CELLS,CSF 2ND 0
[2024-03-30 22:12] LABS: C.DIFF GDH ANTIGEN, Stool Negative (Negative); C.DIFF TOXINS A&B, Stool Negative (Negative)
[2024-03-31] VITALS (18 sets, daily range): BP systolic 114–143; BP diastolic 54–76; PULSE 67–81; RESP 22–25; TEMP 98.4–100.5; O2SAT 91–98
[2024-03-31 06:36] LABS: ANION GAP 10 mmol/L (8-16); CALCIUM, TOTAL 8.7 mg/dL (8.8-10.5); CARBON DIOXIDE 26 mmol/L (22-29); CHLORIDE 106 mmol/L (98-107); CREATININE 0.34 mg/dL (0.60-1.30); GLOMERULAR FILTR. RATE CALC > 60 mL/min (>60); GLUCOSE,RANDOM 103 mg/dL (70-110); SODIUM SERUM 142 mmol/L (136-145); UREA NITROGEN, BLOOD 15 mg/dL (7-18)
[2024-03-31 06:53] LABS: BASOPHILS % (AUTO) 0.7 % (0.0-2.0); HEMATOCRIT 34.3 % (36-46); LYMPHOCYTES # (AUTO) 2.3 K/uL (1.0-4.8); LYMPHOCYTES % (AUTO) 33.5 % (22.0-44.0); MEAN CORPUSCULAR HEMOGLOBIN 27.9 pg (26.0-34.0); MEAN CORPUSCULAR HGB CONC 32.1 G/dL (31.0-37.0); MEAN CORPUSCULAR VOLUME 87 fL (80-100); MONOCYTES # (AUTO) 0.4 K/uL (0.1-1.0); MONOCYTES % (AUTO) 5.9 % (2.0-9.0); NEUTROPHILS # (AUTO) 3.6 K/uL (1.8-7.7); NEUTROPHILS % (AUTO) 53.9 % (40.0-70.0); PLATELET COUNT (AUTO) 388 K/uL (150-450); RED BLOOD CELL COUNT(AUTO) 3.94 MIL/uL (4.00-5.20); WHITE BLOOD COUNT (AUTO) 6.8 K/uL (4.5-11.0)
[2024-03-31 11:03] LABS: ABG BASE EXCESS 4.9 mmol/L (-2.0-3.0); ABG HCO3 28.2 mmol/L (21.0-28.0); ABG METHEMOGLOBIN 0.3 % (0.0-1.5); ABG OXYGEN CONTENT 14.7 mL/dL (15.0-23.0); ABG OXYGEN SATURATION 95.5 % (94.0-98.0); ABG OXYHEMOGLOBIN 95.2 % (94.0-98.0); ABG PCO2 50 mmHg (32.0-45.0); ABG PH 7.393 (7.350-7.450); ABG TOTAL HEMOGLOBIN 10.9 G/dL (12.0-16.0); SOURCE, BLOOD GAS ARTERIAL; TEMPERATURE, FAHRENHEIT, BG 100.4 FAHREN (96.0-98.6)
[2024-03-31 11:07] LABS: ALLEN TEST, BLOOD GAS POS; O2 DEVICE,BLOOD GAS VENTILATOR (ROOM AIR); SITE, BLOOD GAS RT BRACHIAL
[2024-03-31 11:08] LABS: PEEP,BG 7 cm H2O; SPONTANEOUS VT, BG 394 ml; VT, ABG 420 ml
[2024-04-01] VITALS (19 sets, daily range): BP systolic 96–151; BP diastolic 50–95; PULSE 69–99; RESP 22–26; TEMP 97.7–99.6; O2SAT 89–98
[2024-04-01 07:08] LABS: EOSINOPHILS % (AUTO) 5.3 % (1.0-6.0); HEMATOCRIT 31.2 % (36-46); HEMOGLOBIN 10.3 g/dL (12.0-16.0); LYMPHOCYTES # (AUTO) 2.6 K/uL (1.0-4.8); MEAN CORPUSCULAR HEMOGLOBIN 28.7 pg (26.0-34.0); MEAN CORPUSCULAR HGB CONC 32.9 G/dL (31.0-37.0); MEAN CORPUSCULAR VOLUME 87 fL (80-100); MONOCYTES # (AUTO) 0.6 K/uL (0.1-1.0); MONOCYTES % (AUTO) 6.9 % (2.0-9.0); NEUTROPHILS # (AUTO) 5.2 K/uL (1.8-7.7); NEUTROPHILS % (AUTO) 57.8 % (40.0-70.0); PLATELET COUNT (AUTO) 363 K/uL (150-450); RED BLOOD CELL COUNT(AUTO) 3.58 MIL/uL (4.00-5.20); RED CELL DISTRIBUTION WIDTH 15.8 % (11.5-14.5)
[2024-04-01 07:26] LABS: ALANINE AMINOTRANSFERASE 51 U/L (12-78); ALBUMIN 1.9 g/dL (3.4-5.0); ALKALINE PHOSPHATASE 91 U/L (46-116); ANION GAP 6 mmol/L (8-16); ASPARTATE AMINOTRANSFERASE 42 U/L (15-37); BILIRUBIN,TOTAL 0.3 mg/dL (0.1-1.0); CALCIUM, TOTAL 8.5 mg/dL (8.8-10.5); CARBON DIOXIDE 29 mmol/L (22-29); CHLORIDE 106 mmol/L (98-107); CREATININE 0.46 mg/dL (0.60-1.30); GLOMERULAR FILTR. RATE CALC > 60 mL/min (>60); GLUCOSE,RANDOM 109 mg/dL (70-110); POTASSIUM 3.1 mmol/L (3.5-5.1); SODIUM SERUM 141 mmol/L (136-145); TOTAL PROTEIN, SERUM 5.4 g/dL (6.4-8.2); UREA NITROGEN, BLOOD 16 mg/dL (7-18)
[2024-04-01] MEDS: MIDODRINE HCL 5 MG TABLET PO SCH (09:26)
[2024-04-01] MEDS ORDERED: SODIUM CHLORIDE 0.9% 250 ML IV ONE (09:31)
[2024-04-01 11:03] LABS: ABG BASE EXCESS 2.4 mmol/L (-2.0-3.0); ABG CARBOXYHEMOGLOBIN 0.1 % (0.5-1.5); ABG HCO3 26.3 mmol/L (21.0-28.0); ABG METHEMOGLOBIN 0.3 % (0.0-1.5); ABG OXYGEN CONTENT 14.3 mL/dL (15.0-23.0); ABG OXYGEN SATURATION 93.5 % (94.0-98.0); ABG OXYHEMOGLOBIN 93.1 % (94.0-98.0); ABG PCO2 44 mmHg (32.0-45.0); ABG PH 7.407 (7.350-7.450); ABG TOTAL HEMOGLOBIN 10.9 G/dL (12.0-16.0); PO2, ARTERIAL BG 70.7 mmHg (83.0-108.0); SOURCE, BLOOD GAS ARTERIAL
[2024-04-01 11:04] LABS: ALLEN TEST, BLOOD GAS POS; SITE, BLOOD GAS RT RADIAL
[2024-04-01 11:05] LABS: O2 DEVICE,BLOOD GAS VENTILATOR (ROOM AIR); PEEP,BG 7 cm H2O; SPONTANEOUS VT, BG 461 ml; VT, ABG 420 ml
[2024-04-01] MEDS ORDERED: SODIUM CHLORIDE 0.9% 500 ML IV ONE (16:26)
[2024-04-01] MEDS: DEXAMETHASONE SOD PHOS 10 MG/ML VIAL IVP SCH (17:35)
[2024-04-01] MEDS ORDERED: 0.9% SODIUM CHLORIDE 10 ML SYRINGE IVP ONE (18:51)
[2024-04-01] MEDS ORDERED: SODIUM CHLORIDE 0.9% 100 ML ONE (18:51)
[2024-04-01] MEDS ORDERED: IOHEXOL 350 MG/ML 100 ML VIAL ONE (18:51)
[2024-04-02] VITALS (17 sets, daily range): BP systolic 120–167; BP diastolic 71–99; PULSE 64–136; RESP 22; TEMP 97.2–99.7; O2SAT 89–100
[2024-04-02 05:06] LABS: CSF CRYPTO. NEOFORMANS PCR Not Detected (Not Detected); CSF CYTOMEGALOVIRUS PCR Not Detected (Not Detected); CSF ENTEROVIRUS PCR Not Detected (Not Detected); CSF ESCHERIHIA COLI K1 PCR Not Detected (Not Detected); CSF HAEMPHILUS INFLUENZAE PCR Not Detected (Not Detected); CSF HERPES SIMPLEX VIRUS 2 PCR Not Detected (Not Detected); CSF HERPES SIMPLEX VIRUS1 PCR Not Detected (Not Detected); CSF HUMAN HERPES VIRUS 6 PCR Not Detected (Not Detected); CSF HUMAN PARECHOVIRUS PCR Not Detected (Not Detected); CSF LISTERIA MONOCYTOGENES PCR Not Detected (Not Detected); CSF N.MENINGITIDIS PCR Not Detected (Not Detected); CSF STREP. AGALACTIAE PCR Not Detected (Not Detected); CSF STREP. PNEUMONIAE PCR Not Detected (Not Detected); CSF VARICELLA ZOSTER V PCR Not Detected (Not Detected)
[2024-04-02 06:19] LABS: BASOPHILS % (AUTO) 0.3 % (0.0-2.0); EOSINOPHILS % (AUTO) 0 % (1.0-6.0); HEMATOCRIT 33.4 % (36-46); LYMPHOCYTES # (AUTO) 1.6 K/uL (1.0-4.8); LYMPHOCYTES % (AUTO) 21.7 % (22.0-44.0); MEAN CORPUSCULAR HEMOGLOBIN 28.5 pg (26.0-34.0); MEAN CORPUSCULAR HGB CONC 32.8 G/dL (31.0-37.0); MEAN CORPUSCULAR VOLUME 87 fL (80-100); MONOCYTES # (AUTO) 0.1 K/uL (0.1-1.0); MONOCYTES % (AUTO) 1.2 % (2.0-9.0); NEUTROPHILS # (AUTO) 5.6 K/uL (1.8-7.7); NEUTROPHILS % (AUTO) 76.8 % (40.0-70.0); PLATELET COUNT (AUTO) 387 K/uL (150-450); RED BLOOD CELL COUNT(AUTO) 3.85 MIL/uL (4.00-5.20); RED CELL DISTRIBUTION WIDTH 15.9 % (11.5-14.5); WHITE BLOOD COUNT (AUTO) 7.3 K/uL (4.5-11.0)
[2024-04-02 06:27] LABS: ANION GAP 9 mmol/L (8-16); CALCIUM, TOTAL 8.9 mg/dL (8.8-10.5); CARBON DIOXIDE 27 mmol/L (22-29); CHLORIDE 105 mmol/L (98-107); GLOMERULAR FILTR. RATE CALC > 60 mL/min (>60); GLUCOSE,RANDOM 160 mg/dL (70-110); POTASSIUM 3.8 mmol/L (3.5-5.1); SODIUM SERUM 141 mmol/L (136-145); UREA NITROGEN, BLOOD 20 mg/dL (7-18)
[2024-04-02 09:07] LABS: ANTI JO-1 (t-RNA Synthethase) <0.2 AI (0.0-0.9); ANTI-DNA DOUBLE STRANDED ABS 2 IU/mL (0-9)
[2024-04-02] MEDS: CISATRACURIUM BESYLATE 100 MG in DEXTROSE 5%-WATER 240 ML IV PRN (09:17)
[2024-04-02] MEDS: BUMETANIDE 0.25 MG/ML 4 ML VIAL IVP ONE (10:05)
[2024-04-02 10:06] LABS: THYROID PEROXIDASE (TPO) AB 9 IU/mL (0-34)
[2024-04-02 20:58] LABS: ABG BASE EXCESS 4.3 mmol/L (-2.0-3.0); ABG CARBOXYHEMOGLOBIN 0.3 % (0.5-1.5); ABG HCO3 27.5 mmol/L (21.0-28.0); ABG METHEMOGLOBIN 0.3 % (0.0-1.5); ABG OXYGEN CONTENT 15.7 mL/dL (15.0-23.0); ABG OXYHEMOGLOBIN 98.4 % (94.0-98.0); ABG PCO2 54 mmHg (32.0-45.0); ABG PH 7.357 (7.350-7.450); SOURCE, BLOOD GAS ARTERIAL; TEMPERATURE, FAHRENHEIT, BG 98.6 FAHREN (96.0-98.6)
[2024-04-02 20:59] LABS: ALLEN TEST, BLOOD GAS PO; O2 DEVICE,BLOOD GAS VENT (ROOM AIR); PO2, ARTERIAL BG 207.6 mmHg (83.0-108.0); SITE, BLOOD GAS LFT RADIAL
[2024-04-02 21:00] LABS: PEEP,BG 10 cm H2O; VT, ABG 42 ml
[2024-04-03] VITALS (19 sets, daily range): BP systolic 90–146; BP diastolic 52–79; PULSE 76–114; RESP 22; TEMP 96.9–98.6; O2SAT 88–100
[2024-04-03 06:14] LABS: BASOPHILS % (AUTO) 0.2 % (0.0-2.0); EOSINOPHILS % (AUTO) 0.3 % (1.0-6.0); HEMOGLOBIN 9.9 g/dL (12.0-16.0); LYMPHOCYTES # (AUTO) 2.4 K/uL (1.0-4.8); LYMPHOCYTES % (AUTO) 23.7 % (22.0-44.0); MEAN CORPUSCULAR HEMOGLOBIN 27.9 pg (26.0-34.0); MEAN CORPUSCULAR VOLUME 87 fL (80-100); MONOCYTES % (AUTO) 9.8 % (2.0-9.0); NEUTROPHILS # (AUTO) 6.8 K/uL (1.8-7.7); PLATELET COUNT (AUTO) 384 K/uL (150-450); RED BLOOD CELL COUNT(AUTO) 3.56 MIL/uL (4.00-5.20); RED CELL DISTRIBUTION WIDTH 15.6 % (11.5-14.5); WHITE BLOOD COUNT (AUTO) 10.3 K/uL (4.5-11.0)
[2024-04-03 06:22] LABS: ALANINE AMINOTRANSFERASE 39 U/L (12-78); ALKALINE PHOSPHATASE 80 U/L (46-116); ANION GAP 7 mmol/L (8-16); ASPARTATE AMINOTRANSFERASE 30 U/L (15-37); BILIRUBIN,TOTAL 0.3 mg/dL (0.1-1.0); CALCIUM, TOTAL 8.2 mg/dL (8.8-10.5); CARBON DIOXIDE 31 mmol/L (22-29); CHLORIDE 106 mmol/L (98-107); CREATININE 0.39 mg/dL (0.60-1.30); GLOMERULAR FILTR. RATE CALC > 60 mL/min (>60); GLUCOSE,RANDOM 124 mg/dL (70-110); LACTATE DEHYDROGENASE 218 U/L (81-234); SODIUM SERUM 144 mmol/L (136-145); TOTAL PROTEIN, SERUM 5.6 g/dL (6.4-8.2); UREA NITROGEN, BLOOD 16 mg/dL (7-18); VANCOMYCIN,RANDOM 18.4 mcg/mL (25.0-50.0)
[2024-04-03 07:06] LABS: CSF HERPES SIMPLEX VIRUS1, PCR Negative (Negative); CSF HERPES SIMPLEX VIRUS2, PCR Negative (Negative)
[2024-04-03] MEDS: MethylPREDNISolone SOD SUCC 1,000 MG in SODIUM CHLORIDE 0.9% 50 ML IV SCH (08:28)
[2024-04-03 08:35] LABS: PROTHROMBIN TIME 10.5 SEC (9.4-11.6)
[2024-04-03] MEDS: FUROSEMIDE 20 MG/2 ML VIAL IVP SCH (09:56)
[2024-04-03 11:07] LABS: THYROGLOBULIN ANTIBODY <1.0 IU/mL (0.0-0.9)
[2024-04-03 15:03] LABS: SPECIMENTYPE,BODY FLUID PLEURAL
[2024-04-03 15:55] LABS: ABG BASE EXCESS 7.3 mmol/L (-2.0-3.0); ABG CARBOXYHEMOGLOBIN 0.2 % (0.5-1.5); ABG HCO3 30.1 mmol/L (21.0-28.0); ABG METHEMOGLOBIN 0.3 % (0.0-1.5); ABG OXYGEN CONTENT 14.7 mL/dL (15.0-23.0); ABG OXYGEN SATURATION 94.2 % (94.0-98.0); ABG OXYHEMOGLOBIN 93.7 % (94.0-98.0); ABG PCO2 51 mmHg (32.0-45.0); ABG PH 7.415 (7.350-7.450); ABG TOTAL HEMOGLOBIN 11.1 G/dL (12.0-16.0); PO2, ARTERIAL BG 70.3 mmHg (83.0-108.0); SOURCE, BLOOD GAS ARTERIAL; TEMPERATURE, FAHRENHEIT, BG 97.6 FAHREN (96.0-98.6)
[2024-04-03 15:58] LABS: ABG A-A DIFF O2 229.8 mmHg (10-20.0); ALLEN TEST, BLOOD GAS Positive; O2 DEVICE,BLOOD GAS VENTILATOR (ROOM AIR); SITE, BLOOD GAS RT RADIAL; VT, ABG 420 ml
[2024-04-03 15:59] LABS: PEEP,BG 8 cm H2O
[2024-04-03 16:08] LABS: APPEARANCE,UNSPUN,BODY FLUID BLOODY (CLEAR); COLOR,BODY FLUID RED (LT YELLOW); TOTAL VOLUME,BODY FLUID 15 mL
[2024-04-03 16:11] LABS: PH, BODY FLUID 7
[2024-04-03 16:26] LABS: LYMPHOCYTES,BODY FLUID 87 %; MONOCYTES,BODY FLUID 9 %; NEUTROPHILS,BODY FLUID 4 %; WBC, BODY FLUID 100 /cu. mm.
[2024-04-03 16:27] LABS: BASOPHILS,BODY FLUID 0 %; EOSINOPHILS,BF (ANAL) 0 %
[2024-04-03 16:34] LABS: APPEARANCE,SPUN,BODY FLUID CLEAR (CLEAR)
[2024-04-04] VITALS (22 sets, daily range): BP systolic 90–128; BP diastolic 50–74; PULSE 68–101; RESP 2–22; TEMP 96.1–98.3; O2SAT 90–100
[2024-04-04 06:24] LABS: BASOPHILS % (AUTO) 0.5 % (0.0-2.0); EOSINOPHILS % (AUTO) 0 % (1.0-6.0); HEMATOCRIT 30.1 % (36-46); HEMOGLOBIN 9.7 g/dL (12.0-16.0); LYMPHOCYTES # (AUTO) 1.9 K/uL (1.0-4.8); LYMPHOCYTES % (AUTO) 21.6 % (22.0-44.0); MEAN CORPUSCULAR HEMOGLOBIN 28.2 pg (26.0-34.0); MEAN CORPUSCULAR HGB CONC 32.2 G/dL (31.0-37.0); MEAN CORPUSCULAR VOLUME 88 fL (80-100); MONOCYTES # (AUTO) 0.9 K/uL (0.1-1.0); MONOCYTES % (AUTO) 10.7 % (2.0-9.0); NEUTROPHILS # (AUTO) 5.9 K/uL (1.8-7.7); NEUTROPHILS % (AUTO) 67.2 % (40.0-70.0); PLATELET COUNT (AUTO) 398 K/uL (150-450); RED BLOOD CELL COUNT(AUTO) 3.44 MIL/uL (4.00-5.20); RED CELL DISTRIBUTION WIDTH 16.1 % (11.5-14.5); WHITE BLOOD COUNT (AUTO) 8.8 K/uL (4.5-11.0)
[2024-04-04 06:36] LABS: ANION GAP 4 mmol/L (8-16); CALCIUM, TOTAL 8.1 mg/dL (8.8-10.5); CARBON DIOXIDE 32 mmol/L (22-29); CHLORIDE 108 mmol/L (98-107); CREATININE 0.34 mg/dL (0.60-1.30); GLOMERULAR FILTR. RATE CALC > 60 mL/min (>60); GLUCOSE,RANDOM 119 mg/dL (70-110); POTASSIUM 3.8 mmol/L (3.5-5.1); SODIUM SERUM 144 mmol/L (136-145); UREA NITROGEN, BLOOD 21 mg/dL (7-18)
[2024-04-04] MEDS ORDERED: SODIUM CHLORIDE 0.9% 250 ML IV ONE ×2 (07:38→15:05)
[2024-04-04 10:16] LABS: ABG BASE EXCESS 5.2 mmol/L (-2.0-3.0); ABG CARBOXYHEMOGLOBIN 0.3 % (0.5-1.5); ABG HCO3 28.7 mmol/L (21.0-28.0); ABG METHEMOGLOBIN 0.3 % (0.0-1.5); ABG OXYGEN CONTENT 13.1 mL/dL (15.0-23.0); ABG OXYGEN SATURATION 94.4 % (94.0-98.0); ABG OXYHEMOGLOBIN 93.8 % (94.0-98.0); ABG PCO2 41 mmHg (32.0-45.0); ABG TOTAL HEMOGLOBIN 9.9 G/dL (12.0-16.0); PO2, ARTERIAL BG 70.1 mmHg (83.0-108.0); SOURCE, BLOOD GAS ARTERIAL
[2024-04-04 10:17] LABS: ALLEN TEST, BLOOD GAS Positive; O2 DEVICE,BLOOD GAS VENTILATOR (ROOM AIR); PEEP,BG 5 cm H2O; SITE, BLOOD GAS RT RADIAL; SPONTANEOUS VT, BG 390 ml; VT, ABG 420 ml
[2024-04-04 11:07] LABS: WEST NILE VIRUS IGG Negative (Negative); WEST NILE VIRUS IGM Negative (Negative)
[2024-04-04 14:07] LABS: TOTAL PROTEIN,BODY FLUID,REF 2.9 g/dL
[2024-04-04] MEDS: CIPROFLOXACIN 400 MG/D5% WATER 200 ML IV SCH (17:26)
[2024-04-05] VITALS (22 sets, daily range): BP systolic 94–118; BP diastolic 45–67; PULSE 68–112; RESP 22; TEMP 96.5–97.7; O2SAT 89–98
[2024-04-05 05:08] LABS: COCCI IGG TITER COMP.FIX-KERN <1:2; COCCIOIDES AB IGG (ID)-KERN Non Reactive; COCCIOIDES AB IGM (ID)-KERN Non Reactive
[2024-04-05 06:45] LABS: BASOPHILS % (AUTO) 0.4 % (0.0-2.0); EOSINOPHILS % (AUTO) 0 % (1.0-6.0); HEMOGLOBIN 9.9 g/dL (12.0-16.0); LYMPHOCYTES # (AUTO) 2.1 K/uL (1.0-4.8); LYMPHOCYTES % (AUTO) 24.3 % (22.0-44.0); MEAN CORPUSCULAR HEMOGLOBIN 28.7 pg (26.0-34.0); MEAN CORPUSCULAR HGB CONC 32.9 G/dL (31.0-37.0); MEAN CORPUSCULAR VOLUME 87 fL (80-100); MONOCYTES % (AUTO) 11.7 % (2.0-9.0); NEUTROPHILS # (AUTO) 5.5 K/uL (1.8-7.7); NEUTROPHILS % (AUTO) 63.6 % (40.0-70.0); PLATELET COUNT (AUTO) 391 K/uL (150-450); RED BLOOD CELL COUNT(AUTO) 3.43 MIL/uL (4.00-5.20); RED CELL DISTRIBUTION WIDTH 16.5 % (11.5-14.5); WHITE BLOOD COUNT (AUTO) 8.6 K/uL (4.5-11.0)
[2024-04-05 07:24] LABS: ANION GAP 4 mmol/L (8-16); CALCIUM, TOTAL 8.2 mg/dL (8.8-10.5); CARBON DIOXIDE 32 mmol/L (22-29); CHLORIDE 108 mmol/L (98-107); CREATININE 0.37 mg/dL (0.60-1.30); GLOMERULAR FILTR. RATE CALC > 60 mL/min (>60); GLUCOSE,RANDOM 119 mg/dL (70-110); POTASSIUM 3.4 mmol/L (3.5-5.1); SODIUM SERUM 144 mmol/L (136-145); UREA NITROGEN, BLOOD 21 mg/dL (7-18)
[2024-04-05 08:50] LABS: ABG BASE EXCESS 6.4 mmol/L (-2.0-3.0); ABG CARBOXYHEMOGLOBIN 0.2 % (0.5-1.5); ABG HCO3 29.6 mmol/L (21.0-28.0); ABG METHEMOGLOBIN 0.9 % (0.0-1.5); ABG OXYGEN CONTENT 13.1 mL/dL (15.0-23.0); ABG OXYGEN SATURATION 90.3 % (94.0-98.0); ABG OXYHEMOGLOBIN 89.3 % (94.0-98.0); ABG PCO2 42 mmHg (32.0-45.0); ABG PH 7.472 (7.350-7.450); ABG TOTAL HEMOGLOBIN 10.4 G/dL (12.0-16.0); ALLEN TEST, BLOOD GAS Positive; PO2, ARTERIAL BG 52.6 mmHg (83.0-108.0); SITE, BLOOD GAS RT RADIAL; SOURCE, BLOOD GAS ARTERIAL; TEMPERATURE, FAHRENHEIT, BG 96.7 FAHREN (96.0-98.6)
[2024-04-05 08:51] LABS: O2 DEVICE,BLOOD GAS VENTILATOR (ROOM AIR); PEEP,BG 5 cm H2O; SPONTANEOUS VT, BG 387 ml; VT, ABG 420 ml
[2024-04-05 11:03] LABS: ABG BASE EXCESS 5.3 mmol/L (-2.0-3.0); ABG CARBOXYHEMOGLOBIN 0.3 % (0.5-1.5); ABG HCO3 28.3 mmol/L (21.0-28.0); ABG METHEMOGLOBIN 0.3 % (0.0-1.5); ABG OXYGEN CONTENT 12.6 mL/dL (15.0-23.0); ABG OXYGEN SATURATION 86.2 % (94.0-98.0); ABG OXYHEMOGLOBIN 85.7 % (94.0-98.0); ABG PCO2 49 mmHg (32.0-45.0); ABG PH 7.405 (7.350-7.450); ABG TOTAL HEMOGLOBIN 10.4 G/dL (12.0-16.0); ALLEN TEST, BLOOD GAS Positive; O2 DEVICE,BLOOD GAS VENTILATOR (ROOM AIR); PO2, ARTERIAL BG 47.6 mmHg (83.0-108.0); SITE, BLOOD GAS LFT RADIAL; SOURCE, BLOOD GAS ARTERIAL; TEMPERATURE, FAHRENHEIT, BG 96.7 FAHREN (96.0-98.6)
[2024-04-05 11:04] LABS: PEEP,BG 5 cm H2O; SPONTANEOUS VT, BG 385 ml; VT, ABG 420 ml
[2024-04-05 13:07] LABS: ANA,IFA (TITER & PATTERN) Negative
[2024-04-05] MEDS: RIFAMPIN 300 MG CAPSULE PO SCH (14:15)
[2024-04-05] MEDS ORDERED: SODIUM CHLORIDE 0.9% 500 ML IV ONE (17:28)
[2024-04-05] MEDS ORDERED: SODIUM CHLORIDE 0.9% 250 ML IV ONE (21:38)
[2024-04-06] VITALS (25 sets, daily range): BP systolic 97–164; BP diastolic 37–77; PULSE 64–104; RESP 22; TEMP 96.6–97.2; O2SAT 86–95
[2024-04-06 07:13] LABS: BASOPHILS % (AUTO) 0.4 % (0.0-2.0); EOSINOPHILS % (AUTO) 0 % (1.0-6.0); HEMATOCRIT 33.3 % (36-46); HEMOGLOBIN 10.8 g/dL (12.0-16.0); LYMPHOCYTES # (AUTO) 2.2 K/uL (1.0-4.8); MEAN CORPUSCULAR HEMOGLOBIN 28.5 pg (26.0-34.0); MEAN CORPUSCULAR HGB CONC 32.5 G/dL (31.0-37.0); MEAN CORPUSCULAR VOLUME 88 fL (80-100); MONOCYTES # (AUTO) 1.2 K/uL (0.1-1.0); MONOCYTES % (AUTO) 12.1 % (2.0-9.0); NEUTROPHILS # (AUTO) 6.5 K/uL (1.8-7.7); NEUTROPHILS % (AUTO) 65.5 % (40.0-70.0); PLATELET COUNT (AUTO) 427 K/uL (150-450); RED CELL DISTRIBUTION WIDTH 16.8 % (11.5-14.5)
[2024-04-06 07:16] LABS: ALANINE AMINOTRANSFERASE 47 U/L (12-78); ALBUMIN 2.3 g/dL (3.4-5.0); ALKALINE PHOSPHATASE 89 U/L (46-116); ANION GAP 7 mmol/L (8-16); ASPARTATE AMINOTRANSFERASE 33 U/L (15-37); BILIRUBIN,TOTAL 0.4 mg/dL (0.1-1.0); CALCIUM, TOTAL 8.4 mg/dL (8.8-10.5); CARBON DIOXIDE 30 mmol/L (22-29); CHLORIDE 107 mmol/L (98-107); GLOMERULAR FILTR. RATE CALC > 60 mL/min (>60); GLUCOSE,RANDOM 114 mg/dL (70-110); POTASSIUM 3.8 mmol/L (3.5-5.1); SODIUM SERUM 144 mmol/L (136-145); TOTAL PROTEIN, SERUM 5.9 g/dL (6.4-8.2); UREA NITROGEN, BLOOD 25 mg/dL (7-18)
[2024-04-06] MEDS ORDERED: DEXAMETHASONE SOD PHOS 10 MG/ML VIAL IVP SCH (09:00)
[2024-04-06] MEDS ORDERED: SODIUM CHLORIDE 0.9% 500 ML IV ONE (11:46)
[2024-04-06 13:47] LABS: ABG CARBOXYHEMOGLOBIN 0.4 % (0.5-1.5); ABG HCO3 28.9 mmol/L (21.0-28.0); ABG METHEMOGLOBIN 0.3 % (0.0-1.5); ABG OXYGEN CONTENT 13.8 mL/dL (15.0-23.0); ABG OXYGEN SATURATION 87.9 % (94.0-98.0); ABG OXYHEMOGLOBIN 87.3 % (94.0-98.0); ABG PCO2 48 mmHg (32.0-45.0); ABG PH 7.417 (7.350-7.450); ABG TOTAL HEMOGLOBIN 11.2 G/dL (12.0-16.0); SOURCE, BLOOD GAS ARTERIAL; TEMPERATURE, FAHRENHEIT, BG 97.7 FAHREN (96.0-98.6)
[2024-04-06 13:49] LABS: ALLEN TEST, BLOOD GAS Positive; O2 DEVICE,BLOOD GAS VENTILATOR (ROOM AIR); PEEP,BG 5 cm H2O; PO2, ARTERIAL BG 49.9 mmHg (83.0-108.0); SITE, BLOOD GAS LFT RADIAL; SPONTANEOUS VT, BG 381 ml; VT, ABG 420 ml
[2024-04-06 15:07] LABS: C. PNEUMONAIE IGG TITER <1:100 (< 1:100); C. PNEUMONIAE IGM TITER <1:10 (< 1:10); C. PSITTACI IGM TITER <1:10 (< 1:10); C. TRACHOMATIS IGM TITER <1:10 (< 1:10)
[2024-04-07] VITALS (23 sets, daily range): BP systolic 93–134; BP diastolic 42–80; PULSE 56–83; RESP 22–28; TEMP 94.8–96.7; O2SAT 90–97
[2024-04-07 06:04] LABS: EOSINOPHILS % (AUTO) 0.3 % (1.0-6.0); HEMATOCRIT 30.2 % (36-46); HEMOGLOBIN 9.8 g/dL (12.0-16.0); LYMPHOCYTES # (AUTO) 2.3 K/uL (1.0-4.8); LYMPHOCYTES % (AUTO) 25.1 % (22.0-44.0); MEAN CORPUSCULAR HEMOGLOBIN 28.6 pg (26.0-34.0); MEAN CORPUSCULAR HGB CONC 32.5 G/dL (31.0-37.0); MEAN CORPUSCULAR VOLUME 88 fL (80-100); MONOCYTES # (AUTO) 0.9 K/uL (0.1-1.0); MONOCYTES % (AUTO) 9.9 % (2.0-9.0); NEUTROPHILS % (AUTO) 64.7 % (40.0-70.0); PLATELET COUNT (AUTO) 383 K/uL (150-450); RED BLOOD CELL COUNT(AUTO) 3.43 MIL/uL (4.00-5.20); RED CELL DISTRIBUTION WIDTH 16.8 % (11.5-14.5); WHITE BLOOD COUNT (AUTO) 9.3 K/uL (4.5-11.0)
[2024-04-07 06:27] LABS: ALANINE AMINOTRANSFERASE 38 U/L (12-78); ALKALINE PHOSPHATASE 78 U/L (46-116); ANION GAP 7 mmol/L (8-16); ASPARTATE AMINOTRANSFERASE 23 U/L (15-37); BILIRUBIN,TOTAL 0.3 mg/dL (0.1-1.0); CALCIUM, TOTAL 8.1 mg/dL (8.8-10.5); CARBON DIOXIDE 31 mmol/L (22-29); CHLORIDE 107 mmol/L (98-107); CREATININE 0.39 mg/dL (0.60-1.30); GLOMERULAR FILTR. RATE CALC > 60 mL/min (>60); GLUCOSE,RANDOM 123 mg/dL (70-110); SODIUM SERUM 145 mmol/L (136-145); TOTAL PROTEIN, SERUM 5.1 g/dL (6.4-8.2); UREA NITROGEN, BLOOD 23 mg/dL (7-18)
[2024-04-07 06:42] LABS: POTASSIUM 2.8 mmol/L (3.5-5.1)
[2024-04-07] MEDS ORDERED: POTASSIUM CHL 10 MEQ/WATER 50 ML IV PRN (08:00)
[2024-04-07 13:29] LABS: POTASSIUM 2.9 mmol/L (3.5-5.1)
[2024-04-07] MEDS: MetroNIDAZOLE 500 MG TABLET PO SCH (15:22)
[2024-04-07] MEDS ORDERED: MAGNESIUM SULFATE 4 GM/WATER 100 ML IV PRN (15:30)
[2024-04-07] MEDS ORDERED: MAGNESIUM SULFATE 2 GM/WATER 50 ML IV PRN (15:30)
[2024-04-07] MEDS ORDERED: MAGNESIUM OXIDE 400 MG TABLET PO PRN (15:30)
[2024-04-07 18:28] LABS: ALBUMIN 2.1 g/dL (3.4-5.0); MAGNESIUM 1.8 mg/dL (1.80-2.40)
[2024-04-08] VITALS (23 sets, daily range): BP systolic 101–143; BP diastolic 50–74; PULSE 67–113; RESP 22; TEMP 95.7–98.7; O2SAT 91–98
[2024-04-08 06:07] LABS: BASOPHILS % (AUTO) 0.2 % (0.0-2.0); EOSINOPHILS % (AUTO) 3.5 % (1.0-6.0); HEMATOCRIT 35.8 % (36-46); HEMOGLOBIN 11.3 g/dL (12.0-16.0); LYMPHOCYTES # (AUTO) 3.8 K/uL (1.0-4.8); LYMPHOCYTES % (AUTO) 22.6 % (22.0-44.0); MEAN CORPUSCULAR HEMOGLOBIN 28.1 pg (26.0-34.0); MEAN CORPUSCULAR HGB CONC 31.6 G/dL (31.0-37.0); MEAN CORPUSCULAR VOLUME 89 fL (80-100); MONOCYTES # (AUTO) 1.5 K/uL (0.1-1.0); MONOCYTES % (AUTO) 8.6 % (2.0-9.0); NEUTROPHILS % (AUTO) 65.1 % (40.0-70.0); PLATELET COUNT (AUTO) 412 K/uL (150-450); RED BLOOD CELL COUNT(AUTO) 4.02 MIL/uL (4.00-5.20); WHITE BLOOD COUNT (AUTO) 16.9 K/uL (4.5-11.0)
[2024-04-08 06:22] LABS: ANION GAP 8 mmol/L (8-16); CALCIUM, TOTAL 8.9 mg/dL (8.8-10.5); CARBON DIOXIDE 29 mmol/L (22-29); CHLORIDE 106 mmol/L (98-107); GLOMERULAR FILTR. RATE CALC > 60 mL/min (>60); GLUCOSE,RANDOM 91 mg/dL (70-110); POTASSIUM 4.1 mmol/L (3.5-5.1); SODIUM SERUM 143 mmol/L (136-145); UREA NITROGEN, BLOOD 27 mg/dL (7-18)
[2024-04-08 07:13] LABS: RBC MORPHOLOGY COMMENT NORMAL RBC MORPH
[2024-04-08] MEDS ORDERED: SODIUM CHLORIDE 0.9% 250 ML IV ONE ×2 (07:58→20:39)
[2024-04-08 13:36] LABS: APPEARANCE,URINE CLEAR (CLEAR); BILIRUBIN,URINE NEGATIVE (NEGATIVE); COLOR,URINE LIGHT YELLOW (YELLOW); GLUCOSE, URINE (UA) NEGATIVE (NEGATIVE); KETONES,URINE NEGATIVE (NEGATIVE); LEUKOCYTE ESTERASE ,URINE NEGATIVE (NEGATIVE); NITRATE,URINE NEGATIVE (NEGATIVE); OCCULT BLOOD,URINE NEGATIVE (NEGATIVE); PROTEIN,URINE TRACE mg/dL (NEGATIVE); SPECIFIC GRAVITIY, URINE 1.028 (1.003-1.030); UROBILINOGEN,URINE <=1.0 mg/dL (<=1.0)
[2024-04-08 13:54] LABS: BACTERIA,URINE None Seen /HPF (None Seen); CALCIUM OXALATE CRYSTALS,UR Few /LPF (None Seen); RBC,URINE None Seen /HPF (0-2); SQUAMOUS EPITHELIAL CELL,UR Few /LPF (None Seen); WBC,URINE None Seen /HPF (0-5)
[2024-04-08] MEDS: *CLINICAL-MEROPENEM DOSING CLINICAL ONE (14:12)
[2024-04-08] MEDS: VANCOMYCIN 1.5 GM/WATER(PEG) 300 ML IV ONE (15:17)
[2024-04-08 15:56] LABS: ABG BASE EXCESS 3.3 mmol/L (-2.0-3.0); ABG CARBOXYHEMOGLOBIN 0.5 % (0.5-1.5); ABG HCO3 26.6 mmol/L (21.0-28.0); ABG METHEMOGLOBIN 0.3 % (0.0-1.5); ABG OXYGEN CONTENT 14.7 mL/dL (15.0-23.0); ABG OXYGEN SATURATION 90.9 % (94.0-98.0); ABG OXYHEMOGLOBIN 90.2 % (94.0-98.0); ABG PCO2 51 mmHg (32.0-45.0); ABG PH 7.368 (7.350-7.450); ABG TOTAL HEMOGLOBIN 11.6 G/dL (12.0-16.0); O2 DEVICE,BLOOD GAS VENTILATOR (ROOM AIR); PEEP,BG 5 cm H2O; PO2, ARTERIAL BG 59.8 mmHg (83.0-108.0); SITE, BLOOD GAS ARTERIAL LINE; SOURCE, BLOOD GAS ARTERIAL; TEMPERATURE, FAHRENHEIT, BG 98.3 FAHREN (96.0-98.6); VT, ABG 420 ml
[2024-04-08] MEDS: MEROPENEM 2 GM in SODIUM CHLORIDE 0.9% 100 ML IV SCH (16:59)
[2024-04-08 17:31] LABS: C.DIFF GDH ANTIGEN, Stool Negative (Negative); C.DIFF TOXINS A&B, Stool Negative (Negative)
[2024-04-08 20:07] LABS: ADENOVIRUS (RESP PCR) Not Detected (Not Detected); BORDETELLA PARAPERTUSSIS PCR Not Detected (Not Detected); CHLAMYDOPHILA PNEUMONIAE PCR Not Detected (Not Detected); HUMAN RHINO/ENTERO VIRUS PCR Not Detected (Not Detected); MYCOPLASMA PNEUMONIAE PCR Not Detected (Not Detected); NP BORDETELLA PERTUSIS Not Detected (Not Detected); NP CORONAVIRUS 229E PCR Not Detected (Not Detected); NP CORONAVIRUS HKU1 PCR Not Detected (Not Detected); NP CORONAVIRUS NL63 PCR Not Detected (Not Detected); NP CORONAVIRUS OC43 PCR Not Detected (Not Detected); NP HUMAN METAPNEUMOVIRUS PCR Not Detected (Not Detected); NP INFLUENZA A PCR Not Detected (Not Detected); NP INFLUENZA A/H1 PCR Not Detected (Not Detected); NP INFLUENZA A/H1-2009 PCR Not Detected (Not Detected); NP INFLUENZA A/H3 PCR Not Detected (Not Detected); NP INFLUENZA B PCR Not Detected (Not Detected); NP PARAINFLUENA 4 PCR Not Detected (Not Detected); NP PARAINFLUENZA 1 PCR Not Detected (Not Detected); NP PARAINFLUENZA 2 PCR Not Detected (Not Detected); NP PARAINFLUENZA 3 PCR Not Detected (Not Detected); NP RESPIRATORY SYNCYTIAL V PCR Not Detected (Not Detected); NP SARS-COV-2 PCR Not Detected (Not Detected)
[2024-04-08] MEDS: MIDODRINE HCL 5 MG TABLET PO SCH (20:45)
[2024-04-09] VITALS (22 sets, daily range): BP systolic 102–151; BP diastolic 42–58; PULSE 78–115; RESP 22; TEMP 98.3–99.4; O2SAT 88–99
[2024-04-09] MEDS ORDERED: SODIUM CHLORIDE 0.9% 500 ML IV ONE (04:49)
[2024-04-09 06:48] LABS: BASOPHILS % (AUTO) 0.2 % (0.0-2.0); EOSINOPHILS % (AUTO) 6.7 % (1.0-6.0); HEMATOCRIT 31.7 % (36-46); HEMOGLOBIN 10.2 g/dL (12.0-16.0); LYMPHOCYTES % (AUTO) 16.1 % (22.0-44.0); MEAN CORPUSCULAR HEMOGLOBIN 28.5 pg (26.0-34.0); MEAN CORPUSCULAR HGB CONC 32.1 G/dL (31.0-37.0); MEAN CORPUSCULAR VOLUME 89 fL (80-100); MONOCYTES # (AUTO) 1.2 K/uL (0.1-1.0); MONOCYTES % (AUTO) 6.5 % (2.0-9.0); NEUTROPHILS # (AUTO) 13.2 K/uL (1.8-7.7); NEUTROPHILS % (AUTO) 70.5 % (40.0-70.0); PLATELET COUNT (AUTO) 343 K/uL (150-450); RED BLOOD CELL COUNT(AUTO) 3.57 MIL/uL (4.00-5.20); RED CELL DISTRIBUTION WIDTH 17.1 % (11.5-14.5); WHITE BLOOD COUNT (AUTO) 18.7 K/uL (4.5-11.0)
[2024-04-09 07:08] LABS: ALANINE AMINOTRANSFERASE 32 U/L (12-78); ALBUMIN 1.8 g/dL (3.4-5.0); ALKALINE PHOSPHATASE 90 U/L (46-116); ANION GAP 6 mmol/L (8-16); ASPARTATE AMINOTRANSFERASE 34 U/L (15-37); BILIRUBIN,TOTAL 0.4 mg/dL (0.1-1.0); CALCIUM, TOTAL 8.2 mg/dL (8.8-10.5); CARBON DIOXIDE 30 mmol/L (22-29); CHLORIDE 102 mmol/L (98-107); CREATININE 0.33 mg/dL (0.60-1.30); GLOMERULAR FILTR. RATE CALC > 60 mL/min (>60); GLUCOSE,RANDOM 112 mg/dL (70-110); SODIUM SERUM 138 mmol/L (136-145); UREA NITROGEN, BLOOD 17 mg/dL (7-18)
[2024-04-09] MEDS: VANCOMYCIN 1.25 GM/WATER(PEG) 250 ML IV SCH (07:44)
[2024-04-09 11:07] LABS: BARTONELLA HENSELAE IGG titer Negative titer (Neg:<1:320); BARTONELLA HENSELAE IGM TITER Negative titer (Neg:<1:100); BARTONELLA QUINTANA IGG TITER Negative titer (Neg:<1:320); BARTONELLA QUINTANA IGM TITER Negative titer (Neg:<1:100)
[2024-04-09 12:11] LABS: ABG BASE EXCESS 4.4 mmol/L (-2.0-3.0); ABG CARBOXYHEMOGLOBIN 0.7 % (0.5-1.5); ABG HCO3 27.7 mmol/L (21.0-28.0); ABG METHEMOGLOBIN 0.3 % (0.0-1.5); ABG OXYGEN CONTENT 14.2 mL/dL (15.0-23.0); ABG OXYGEN SATURATION 93.3 % (94.0-98.0); ABG OXYHEMOGLOBIN 92.4 % (94.0-98.0); ABG PCO2 49 mmHg (32.0-45.0); ABG PH 7.392 (7.350-7.450); ABG TOTAL HEMOGLOBIN 10.9 G/dL (12.0-16.0); ALLEN TEST, BLOOD GAS Positive; PO2, ARTERIAL BG 66.9 mmHg (83.0-108.0); SITE, BLOOD GAS RT RADIAL; SOURCE, BLOOD GAS ARTERIAL; TEMPERATURE, FAHRENHEIT, BG 98.6 FAHREN (96.0-98.6)
[2024-04-09 12:12] LABS: O2 DEVICE,BLOOD GAS VENTILATOR (ROOM AIR); PEEP,BG 10 cm H2O; SPONTANEOUS VT, BG 387 ml; VT, ABG 420 ml
[2024-04-09 14:09] LABS: ANTI-MOG AB,CELL-BASED IFA Negative (Negative)
[2024-04-09 20:06] LABS: AQUAPORIN-4 (AQP4) AB,SERUM Negative (Negative)
[2024-04-09] MEDS ORDERED: SODIUM CHLORIDE 0.9% 250 ML IV ONE (20:48)
[2024-04-10] VITALS (24 sets, daily range): BP systolic 89–131; BP diastolic 35–59; PULSE 71–99; RESP 22; TEMP 96.8–98.8; O2SAT 92–100
[2024-04-10 06:22] LABS: ANION GAP 4 mmol/L (8-16); CALCIUM, TOTAL 8.2 mg/dL (8.8-10.5); CARBON DIOXIDE 32 mmol/L (22-29); CHLORIDE 106 mmol/L (98-107); GLOMERULAR FILTR. RATE CALC > 60 mL/min (>60); GLUCOSE,RANDOM 115 mg/dL (70-110); POTASSIUM 3.4 mmol/L (3.5-5.1); SODIUM SERUM 142 mmol/L (136-145); UREA NITROGEN, BLOOD 13 mg/dL (7-18)
[2024-04-10 06:26] LABS: BASOPHILS % (AUTO) 0.3 % (0.0-2.0); EOSINOPHILS % (AUTO) 8.5 % (1.0-6.0); HEMATOCRIT 31.3 % (36-46); HEMOGLOBIN 10.1 g/dL (12.0-16.0); LYMPHOCYTES # (AUTO) 2.5 K/uL (1.0-4.8); LYMPHOCYTES % (AUTO) 14.5 % (22.0-44.0); MEAN CORPUSCULAR HEMOGLOBIN 28.7 pg (26.0-34.0); MEAN CORPUSCULAR HGB CONC 32.3 G/dL (31.0-37.0); MEAN CORPUSCULAR VOLUME 89 fL (80-100); MONOCYTES # (AUTO) 1.2 K/uL (0.1-1.0); MONOCYTES % (AUTO) 6.8 % (2.0-9.0); NEUTROPHILS # (AUTO) 12.1 K/uL (1.8-7.7); NEUTROPHILS % (AUTO) 69.9 % (40.0-70.0); PLATELET COUNT (AUTO) 315 K/uL (150-450); RED BLOOD CELL COUNT(AUTO) 3.53 MIL/uL (4.00-5.20); RED CELL DISTRIBUTION WIDTH 16.7 % (11.5-14.5); WHITE BLOOD COUNT (AUTO) 17.3 K/uL (4.5-11.0)
[2024-04-10 12:16] LABS: ABG BASE EXCESS 6.4 mmol/L (-2.0-3.0); ABG CARBOXYHEMOGLOBIN 0.3 % (0.5-1.5); ABG HCO3 29.5 mmol/L (21.0-28.0); ABG METHEMOGLOBIN 0.3 % (0.0-1.5); ABG OXYGEN CONTENT 13.8 mL/dL (15.0-23.0); ABG OXYGEN SATURATION 95.4 % (94.0-98.0); ABG OXYHEMOGLOBIN 94.8 % (94.0-98.0); ABG PCO2 46 mmHg (32.0-45.0); ABG PH 7.439 (7.350-7.450); ABG TOTAL HEMOGLOBIN 10.3 G/dL (12.0-16.0); O2 DEVICE,BLOOD GAS VENTILATOR (ROOM AIR); PEEP,BG 5 cm H2O; PO2, ARTERIAL BG 73.5 mmHg (83.0-108.0); SITE, BLOOD GAS ARTERIAL LINE; SOURCE, BLOOD GAS ARTERIAL; TEMPERATURE, FAHRENHEIT, BG 97.2 FAHREN (96.0-98.6); VT, ABG 420 ml
[2024-04-10 12:17] LABS: SPONTANEOUS VT, BG 432 ml
[2024-04-10] MEDS ORDERED: SODIUM CHLORIDE 0.9% 250 ML IV ONE (22:40)
[2024-04-11] VITALS (21 sets, daily range): BP systolic 100–145; BP diastolic 53–66; PULSE 64–101; RESP 20–28; TEMP 96.2–98.2; O2SAT 92–99
[2024-04-11 05:59] LABS: BASOPHILS % (AUTO) 0.5 % (0.0-2.0); EOSINOPHILS % (AUTO) 10.2 % (1.0-6.0); HEMOGLOBIN 9.9 g/dL (12.0-16.0); LYMPHOCYTES % (AUTO) 14.8 % (22.0-44.0); MEAN CORPUSCULAR HEMOGLOBIN 28.5 pg (26.0-34.0); MEAN CORPUSCULAR HGB CONC 32.1 G/dL (31.0-37.0); MEAN CORPUSCULAR VOLUME 89 fL (80-100); MONOCYTES # (AUTO) 1.4 K/uL (0.1-1.0); MONOCYTES % (AUTO) 10.1 % (2.0-9.0); NEUTROPHILS # (AUTO) 8.7 K/uL (1.8-7.7); NEUTROPHILS % (AUTO) 64.4 % (40.0-70.0); PLATELET COUNT (AUTO) 320 K/uL (150-450); RED BLOOD CELL COUNT(AUTO) 3.48 MIL/uL (4.00-5.20); RED CELL DISTRIBUTION WIDTH 17.1 % (11.5-14.5); WHITE BLOOD COUNT (AUTO) 13.6 K/uL (4.5-11.0)
[2024-04-11 06:18] LABS: ANION GAP 5 mmol/L (8-16); CALCIUM, TOTAL 8.7 mg/dL (8.8-10.5); CARBON DIOXIDE 30 mmol/L (22-29); CHLORIDE 107 mmol/L (98-107); CREATININE 0.32 mg/dL (0.60-1.30); GLOMERULAR FILTR. RATE CALC > 60 mL/min (>60); GLUCOSE,RANDOM 117 mg/dL (70-110); POTASSIUM 3.7 mmol/L (3.5-5.1); SODIUM SERUM 142 mmol/L (136-145); UREA NITROGEN, BLOOD 11 mg/dL (7-18); VANCOMYCIN,RANDOM 17.9 mcg/mL (25.0-50.0)
[2024-04-11] MEDS ORDERED: MIDODRINE HCL 5 MG TABLET PO SCH (09:00)
[2024-04-11 09:31] LABS: ABG BASE EXCESS 8.7 mmol/L (-2.0-3.0); ABG CARBOXYHEMOGLOBIN 0.4 % (0.5-1.5); ABG HCO3 31.4 mmol/L (21.0-28.0); ABG METHEMOGLOBIN 0.3 % (0.0-1.5); ABG OXYGEN CONTENT 13.7 mL/dL (15.0-23.0); ABG OXYGEN SATURATION 93.1 % (94.0-98.0); ABG OXYHEMOGLOBIN 92.4 % (94.0-98.0); ABG PCO2 47 mmHg (32.0-45.0); ABG PH 7.455 (7.350-7.450); ABG TOTAL HEMOGLOBIN 10.5 G/dL (12.0-16.0); PO2, ARTERIAL BG 62.2 mmHg (83.0-108.0); SITE, BLOOD GAS ARTERIAL LINE; SOURCE, BLOOD GAS ARTERIAL; TEMPERATURE, FAHRENHEIT, BG 96.9 FAHREN (96.0-98.6)
[2024-04-11 09:32] LABS: ABG A-A DIFF O2 169.5 mmHg (10-20.0); O2 DEVICE,BLOOD GAS VENTILATOR (ROOM AIR); PEEP,BG 5 cm H2O; VT, ABG 420 ml
[2024-04-11 15:18] LABS: ABG BASE EXCESS 7.9 mmol/L (-2.0-3.0); ABG CARBOXYHEMOGLOBIN 0.3 % (0.5-1.5); ABG HCO3 30.6 mmol/L (21.0-28.0); ABG METHEMOGLOBIN 0.3 % (0.0-1.5); ABG OXYGEN CONTENT 14.2 mL/dL (15.0-23.0); ABG OXYHEMOGLOBIN 93.4 % (94.0-98.0); ABG PCO2 50 mmHg (32.0-45.0); ABG PH 7.428 (7.350-7.450); ABG TOTAL HEMOGLOBIN 10.8 G/dL (12.0-16.0); PO2, ARTERIAL BG 65.2 mmHg (83.0-108.0); SITE, BLOOD GAS ARTERIAL LINE; SOURCE, BLOOD GAS ARTERIAL; TEMPERATURE, FAHRENHEIT, BG 98.1 FAHREN (96.0-98.6)
[2024-04-11 15:19] LABS: O2 DEVICE,BLOOD GAS VENTILATOR (ROOM AIR); PEEP,BG 5 cm H2O; SPONTANEOUS VT, BG 428 ml
[2024-04-11] MEDS: MIDODRINE HCL 5 MG TABLET PO SCH (15:50)
[2024-04-11] MEDS ORDERED: SODIUM CHLORIDE 0.9% 250 ML IV ONE (20:35)
[2024-04-12] VITALS (18 sets, daily range): BP systolic 102–143; BP diastolic 41–55; PULSE 72–120; RESP 20–24; TEMP 97.6–99.6; O2SAT 90–97
[2024-04-12] MEDS ORDERED: SODIUM CHLORIDE 0.9% 500 ML IV ONE (00:34)
[2024-04-12 07:00] LABS: BASOPHILS % (AUTO) 0.6 % (0.0-2.0); EOSINOPHILS % (AUTO) 9.9 % (1.0-6.0); HEMATOCRIT 28.5 % (36-46); HEMOGLOBIN 9.4 g/dL (12.0-16.0); LYMPHOCYTES # (AUTO) 2.5 K/uL (1.0-4.8); LYMPHOCYTES % (AUTO) 23.1 % (22.0-44.0); MEAN CORPUSCULAR HEMOGLOBIN 29.1 pg (26.0-34.0); MEAN CORPUSCULAR VOLUME 88 fL (80-100); MONOCYTES # (AUTO) 1.4 K/uL (0.1-1.0); MONOCYTES % (AUTO) 12.9 % (2.0-9.0); NEUTROPHILS # (AUTO) 5.8 K/uL (1.8-7.7); NEUTROPHILS % (AUTO) 53.5 % (40.0-70.0); PLATELET COUNT (AUTO) 294 K/uL (150-450); RED BLOOD CELL COUNT(AUTO) 3.24 MIL/uL (4.00-5.20); RED CELL DISTRIBUTION WIDTH 16.5 % (11.5-14.5); WHITE BLOOD COUNT (AUTO) 10.9 K/uL (4.5-11.0)
[2024-04-12 07:18] LABS: ANION GAP 6 mmol/L (8-16); CALCIUM, TOTAL 8.7 mg/dL (8.8-10.5); CARBON DIOXIDE 33 mmol/L (22-29); CHLORIDE 105 mmol/L (98-107); CREATININE 0.46 mg/dL (0.60-1.30); GLOMERULAR FILTR. RATE CALC > 60 mL/min (>60); GLUCOSE,RANDOM 102 mg/dL (70-110); POTASSIUM 3.3 mmol/L (3.5-5.1); SODIUM SERUM 143 mmol/L (136-145); UREA NITROGEN, BLOOD 15 mg/dL (7-18)
[2024-04-12] MEDS: POTASSIUM CHLORIDE 10% 40 MEQ/30 ML LIQUID UDCUP NG SCH (08:40)
[2024-04-12 10:58] LABS: ABG A-A DIFF O2 170.2 mmHg (10-20.0); ABG BASE EXCESS -0.2 mmol/L (-2.0-3.0); ABG CARBOXYHEMOGLOBIN 0.7 % (0.5-1.5); ABG HCO3 24.3 mmol/L (21.0-28.0); ABG METHEMOGLOBIN 1.3 % (0.0-1.5); ABG OXYGEN CONTENT 11.3 mL/dL (15.0-23.0); ABG OXYGEN SATURATION 94.4 % (94.0-98.0); ABG OXYHEMOGLOBIN 92.5 % (94.0-98.0); ABG PCO2 40 mmHg (32.0-45.0); ABG PH 7.407 (7.350-7.450); ABG TOTAL HEMOGLOBIN 8.6 G/dL (12.0-16.0); O2 DEVICE,BLOOD GAS VENTILATOR (ROOM AIR); PEEP,BG 5 cm H2O; PO2, ARTERIAL BG 69.4 mmHg (83.0-108.0); SITE, BLOOD GAS ARTERIAL LINE; SOURCE, BLOOD GAS ARTERIAL; TEMPERATURE, FAHRENHEIT, BG 98.2 FAHREN (96.0-98.6); VT, ABG 420 ml
[2024-04-12] MEDS: *CLINICAL-BACTRIM/SEPTRA IVPB DOSING CLINICAL ONE (13:06)
[2024-04-12] MEDS: SULFAMETHOX/TRIMETH 20 ML in DEXTROSE 5%-WATER 250 ML IV SCH (14:20)
[2024-04-13] VITALS (22 sets, daily range): BP systolic 91–144; BP diastolic 45–86; PULSE 63–93; RESP 10–22; TEMP 97.2–98.3; O2SAT 9–97
[2024-04-13] MEDS ORDERED: SODIUM CHLORIDE 0.9% 250 ML IV ONE (00:23)
[2024-04-13 06:23] LABS: BASOPHILS % (AUTO) 0.6 % (0.0-2.0); EOSINOPHILS % (AUTO) 9.6 % (1.0-6.0); HEMATOCRIT 30.6 % (36-46); HEMOGLOBIN 9.9 g/dL (12.0-16.0); LYMPHOCYTES # (AUTO) 2.9 K/uL (1.0-4.8); LYMPHOCYTES % (AUTO) 24.6 % (22.0-44.0); MEAN CORPUSCULAR HEMOGLOBIN 28.7 pg (26.0-34.0); MEAN CORPUSCULAR HGB CONC 32.2 G/dL (31.0-37.0); MEAN CORPUSCULAR VOLUME 89 fL (80-100); MONOCYTES # (AUTO) 1.7 K/uL (0.1-1.0); MONOCYTES % (AUTO) 14.3 % (2.0-9.0); NEUTROPHILS % (AUTO) 50.9 % (40.0-70.0); PLATELET COUNT (AUTO) 302 K/uL (150-450); RED BLOOD CELL COUNT(AUTO) 3.44 MIL/uL (4.00-5.20); RED CELL DISTRIBUTION WIDTH 17.3 % (11.5-14.5); WHITE BLOOD COUNT (AUTO) 11.8 K/uL (4.5-11.0)
[2024-04-13 06:43] LABS: ALANINE AMINOTRANSFERASE 45 U/L (12-78); ALBUMIN 1.6 g/dL (3.4-5.0); ALKALINE PHOSPHATASE 83 U/L (46-116); ANION GAP 7 mmol/L (8-16); ASPARTATE AMINOTRANSFERASE 46 U/L (15-37); BILIRUBIN,TOTAL 0.3 mg/dL (0.1-1.0); CALCIUM, TOTAL 9.1 mg/dL (8.8-10.5); CARBON DIOXIDE 31 mmol/L (22-29); CHLORIDE 105 mmol/L (98-107); CREATININE 0.29 mg/dL (0.60-1.30); GLOMERULAR FILTR. RATE CALC > 60 mL/min (>60); GLUCOSE,RANDOM 100 mg/dL (70-110); POTASSIUM 3.6 mmol/L (3.5-5.1); SODIUM SERUM 143 mmol/L (136-145); TOTAL PROTEIN, SERUM 5.2 g/dL (6.4-8.2); UREA NITROGEN, BLOOD 13 mg/dL (7-18)
[2024-04-13 11:02] LABS: ABG BASE EXCESS 6.7 mmol/L (-2.0-3.0); ABG CARBOXYHEMOGLOBIN 0.3 % (0.5-1.5); ABG HCO3 29.6 mmol/L (21.0-28.0); ABG OXYGEN CONTENT 14.3 mL/dL (15.0-23.0); ABG OXYGEN SATURATION 94.9 % (94.0-98.0); ABG OXYHEMOGLOBIN 94.6 % (94.0-98.0); ABG PCO2 50 mmHg (32.0-45.0); ABG PH 7.412 (7.350-7.450); ABG TOTAL HEMOGLOBIN 10.7 G/dL (12.0-16.0); PO2, ARTERIAL BG 70.6 mmHg (83.0-108.0); SOURCE, BLOOD GAS ARTERIAL
[2024-04-13 11:03] LABS: ABG A-A DIFF O2 157.2 mmHg (10-20.0); O2 DEVICE,BLOOD GAS VENTILATOR (ROOM AIR); PEEP,BG 5 cm H2O; SITE, BLOOD GAS ARTERIAL LINE; SPONTANEOUS VT, BG 428 ml; VT, ABG 420 ml
[2024-04-13 14:41] LABS: AMPA-R1 CB IFA CSF Negative (Negative); AMPA-R2 CB IFA CSF Negative (Negative); AMPHIPHYSIN Anitbody CSF Negative (Negative); ANTI-HU AB,CSF Negative (Negative); ANTI-RI AB, CSF Negative (Negative); ANTINEURONAL NUC AB TYPE3,CSF Negative (Negative); Anti-Glial Nuclear(AGNA-1) CSF Negative (Negative); Anti-PNMA2 (Ma2/Ta) Ab CSF Negative (Negative); CASP R2 AB CB IFA CSF Negative (Negative); CRMP-5 IGG AB CSF Negative (Negative); CSF Autoimm.Encephalo Interp Negative (Negative); DNER (PCA-Tr) Ab CB-IFA CSF Negative (Negative); DPPX AB CSF Negative (Negative); GABA-B Receptor CB IFA CSF Negative (Negative); GAD65 AB CB IFA CSF Negative (Negative); IgLON5 Antibody IFA CSF Negative (Negative); LGI-1 AB CB IFA CSF Negative (Negative); NMDA Receptor CB IFA CSF Negative (Negative); Purkinje CellCyto Ab Trace CSF Negative (Negative); Purkinje CellCyto Ab Type2 CSF Negative (Negative); mGLUR1 AB CB-IFA CSF Negative (Negative)
[2024-04-14] VITALS (23 sets, daily range): BP systolic 99–140; BP diastolic 51–70; PULSE 57–121; RESP 22–25; TEMP 96.4–100.2; O2SAT 91–96
[2024-04-14] MEDS ORDERED: SODIUM CHLORIDE 0.9% 500 ML IV ONE (02:16)
[2024-04-14 06:10] LABS: BASOPHILS % (AUTO) 0.6 % (0.0-2.0); HEMATOCRIT 32.1 % (36-46); HEMOGLOBIN 10.3 g/dL (12.0-16.0); LYMPHOCYTES # (AUTO) 2.5 K/uL (1.0-4.8); LYMPHOCYTES % (AUTO) 27.6 % (22.0-44.0); MEAN CORPUSCULAR HEMOGLOBIN 28.4 pg (26.0-34.0); MEAN CORPUSCULAR HGB CONC 32.1 G/dL (31.0-37.0); MEAN CORPUSCULAR VOLUME 89 fL (80-100); MONOCYTES # (AUTO) 1.1 K/uL (0.1-1.0); MONOCYTES % (AUTO) 12.3 % (2.0-9.0); NEUTROPHILS # (AUTO) 4.7 K/uL (1.8-7.7); NEUTROPHILS % (AUTO) 50.5 % (40.0-70.0); PLATELET COUNT (AUTO) 290 K/uL (150-450); RED BLOOD CELL COUNT(AUTO) 3.61 MIL/uL (4.00-5.20); WHITE BLOOD COUNT (AUTO) 9.2 K/uL (4.5-11.0)
[2024-04-14 06:29] LABS: ALBUMIN 1.8 g/dL (3.4-5.0); ANION GAP 5 mmol/L (8-16); CALCIUM, TOTAL 9.5 mg/dL (8.8-10.5); CARBON DIOXIDE 28 mmol/L (22-29); CHLORIDE 106 mmol/L (98-107); CREATININE 0.34 mg/dL (0.60-1.30); GLOMERULAR FILTR. RATE CALC > 60 mL/min (>60); GLUCOSE,RANDOM 109 mg/dL (70-110); POTASSIUM 3.4 mmol/L (3.5-5.1); SODIUM SERUM 139 mmol/L (136-145); UREA NITROGEN, BLOOD 16 mg/dL (7-18); VANCOMYCIN,RANDOM 24.2 mcg/mL (25.0-50.0)
[2024-04-14 06:40] LABS: GLUCOMETER DEV NAME(LOC) ICUN.5; GLUCOSE,POINT OF CARE 124 MG/DL (70-110)
[2024-04-14] MEDS: VANCOMYCIN 1GM/WATER(PEG/NADA) 200 ML IV SCH (20:37)
[2024-04-14] MEDS ORDERED: SODIUM CHLORIDE 0.9% 250 ML IV ONE (20:45)
[2024-04-15] VITALS (23 sets, daily range): BP systolic 88–168; BP diastolic 53–96; PULSE 77–122; RESP 16–38; TEMP 100.2–100.8; O2SAT 90–94
[2024-04-15 05:58] LABS: HEMATOCRIT 34.8 % (36-46); HEMOGLOBIN 11.2 g/dL (12.0-16.0); MEAN CORPUSCULAR HEMOGLOBIN 28.3 pg (26.0-34.0); MEAN CORPUSCULAR HGB CONC 32.2 G/dL (31.0-37.0); MEAN CORPUSCULAR VOLUME 88 fL (80-100); PLATELET COUNT (AUTO) 296 K/uL (150-450); RED BLOOD CELL COUNT(AUTO) 3.97 MIL/uL (4.00-5.20); RED CELL DISTRIBUTION WIDTH 17.3 % (11.5-14.5); WHITE BLOOD COUNT (AUTO) 13.1 K/uL (4.5-11.0)
[2024-04-15] MEDS ORDERED: SODIUM CHLORIDE 0.9% 500 ML IV ONE (06:06)
[2024-04-15 06:07] LABS: ANION GAP 6 mmol/L (8-16); CALCIUM, TOTAL 9.4 mg/dL (8.8-10.5); CARBON DIOXIDE 28 mmol/L (22-29); CHLORIDE 101 mmol/L (98-107); CREATININE 0.39 mg/dL (0.60-1.30); GLOMERULAR FILTR. RATE CALC > 60 mL/min (>60); GLUCOSE,RANDOM 107 mg/dL (70-110); POTASSIUM 4.5 mmol/L (3.5-5.1); SODIUM SERUM 135 mmol/L (136-145); UREA NITROGEN, BLOOD 14 mg/dL (7-18)
[2024-04-15] MEDS: LORazepam 2 MG/ML VIAL IVP PRN (08:48)
[2024-04-15 09:19] LABS: BAND NEUTROPHILS % (MANUAL) 3 % (0-5); EOSINOPHILS % (MANUAL) 6 % (1-6); LYMPHOCYTES % (MANUAL) 24 % (22-44); MONOCYTES % (MANUAL) 8 % (2-9); SEGMENTED NEUTROPHILS % 59 % (40-70); TOTAL CELLS COUNTED 100
[2024-04-15 09:43] LABS: ABG BASE EXCESS 0.6 mmol/L (-2.0-3.0); ABG CARBOXYHEMOGLOBIN 0.4 % (0.5-1.5); ABG HCO3 25.2 mmol/L (21.0-28.0); ABG METHEMOGLOBIN 0.9 % (0.0-1.5); ABG OXYGEN CONTENT 16.1 mL/dL (15.0-23.0); ABG OXYGEN SATURATION 93.1 % (94.0-98.0); ABG OXYHEMOGLOBIN 91.9 % (94.0-98.0); ABG PCO2 37 mmHg (32.0-45.0); ABG PH 7.439 (7.350-7.450); ABG TOTAL HEMOGLOBIN 12.4 G/dL (12.0-16.0); PO2, ARTERIAL BG 75.6 mmHg (83.0-108.0); SITE, BLOOD GAS ARTERIAL LINE; SOURCE, BLOOD GAS ARTERIAL; TEMPERATURE, FAHRENHEIT, BG 100.7 FAHREN (96.0-98.6)
[2024-04-15 09:44] LABS: ABG A-A DIFF O2 165.4 mmHg (10-20.0); CPAP, BG 5 cm H2O; O2 DEVICE,BLOOD GAS VENTILATOR (ROOM AIR); PRESSURE SUPPORT, BG 8 cm H2O; SPONTANEOUS VT, BG 555 ml; VENT MODE, BG CPAP (ROOM AIR)
[2024-04-15] MEDS: *CLINICAL-MEROPENEM DOSING CLINICAL ONE (11:51)
[2024-04-15] MEDS: MEROPENEM 1 GM in SODIUM CHLORIDE 0.9% 100 ML IV SCH (12:09)
[2024-04-15] MEDS: METOPROLOL TARTRATE 25 MG TABLET PO SCH (12:38)
[2024-04-15 15:11] LABS: APPEARANCE,URINE HAZY (CLEAR); BILIRUBIN,URINE NEGATIVE (NEGATIVE); COLOR,URINE LIGHT YELLOW (YELLOW); GLUCOSE, URINE (UA) NEGATIVE (NEGATIVE); KETONES,URINE NEGATIVE (NEGATIVE); LEUKOCYTE ESTERASE ,URINE NEGATIVE (NEGATIVE); NITRATE,URINE NEGATIVE (NEGATIVE); OCCULT BLOOD,URINE SMALL (NEGATIVE); PH,URINE 7.5 (5.0-8.0); PROTEIN,URINE TRACE mg/dL (NEGATIVE); SPECIFIC GRAVITIY, URINE 1.018 (1.003-1.030); UROBILINOGEN,URINE <=1.0 mg/dL (<=1.0)
[2024-04-15 15:21] LABS: AMORPHOUS SEDIMENT,UR Moderate /LPF (None Seen); BACTERIA,URINE Few /HPF (None Seen); SQUAMOUS EPITHELIAL CELL,UR Few /LPF (None Seen); WBC,URINE 0-2 /HPF (0-5)
[2024-04-15] MEDS ORDERED: SODIUM CHLORIDE 0.9% 250 ML IV ONE (20:32)
[2024-04-16] VITALS (22 sets, daily range): BP systolic 91–156; BP diastolic 54–84; PULSE 67–119; RESP 22–27; TEMP 98–101.2; O2SAT 88–94
[2024-04-16] MEDS ORDERED: SODIUM CHLORIDE 0.9% 500 ML IV ONE (05:13)
[2024-04-16 05:41] LABS: BASOPHILS % (AUTO) 0.4 % (0.0-2.0); EOSINOPHILS % (AUTO) 1.2 % (1.0-6.0); HEMATOCRIT 34.3 % (36-46); LYMPHOCYTES # (AUTO) 2.1 K/uL (1.0-4.8); LYMPHOCYTES % (AUTO) 9.2 % (22.0-44.0); MEAN CORPUSCULAR HEMOGLOBIN 28.1 pg (26.0-34.0); MEAN CORPUSCULAR HGB CONC 32.1 G/dL (31.0-37.0); MEAN CORPUSCULAR VOLUME 88 fL (80-100); MONOCYTES # (AUTO) 1.5 K/uL (0.1-1.0); MONOCYTES % (AUTO) 6.5 % (2.0-9.0); NEUTROPHILS # (AUTO) 18.6 K/uL (1.8-7.7); NEUTROPHILS % (AUTO) 82.7 % (40.0-70.0); PLATELET COUNT (AUTO) 280 K/uL (150-450); RED BLOOD CELL COUNT(AUTO) 3.92 MIL/uL (4.00-5.20); RED CELL DISTRIBUTION WIDTH 17.1 % (11.5-14.5); WHITE BLOOD COUNT (AUTO) 22.5 K/uL (4.5-11.0)
[2024-04-16 06:00] LABS: ANION GAP 11 mmol/L (8-16); CALCIUM, TOTAL 9.4 mg/dL (8.8-10.5); CARBON DIOXIDE 28 mmol/L (22-29); CHLORIDE 101 mmol/L (98-107); CREATININE 0.39 mg/dL (0.60-1.30); GLOMERULAR FILTR. RATE CALC > 60 mL/min (>60); GLUCOSE,RANDOM 122 mg/dL (70-110); POTASSIUM 3.3 mmol/L (3.5-5.1); SODIUM SERUM 140 mmol/L (136-145); UREA NITROGEN, BLOOD 18 mg/dL (7-18)
[2024-04-16] MEDS: VANCOMYCIN HCL 125 MG/2.5 ML SOLUTION ORAL.SYG PO SCH (23:50)
[2024-04-17] VITALS (19 sets, daily range): BP systolic 110–135; BP diastolic 47–65; PULSE 64–106; RESP 22–29; TEMP 97.2–100.6; O2SAT 89–96
[2024-04-17 06:06] LABS: BASOPHILS % (AUTO) 0.4 % (0.0-2.0); EOSINOPHILS % (AUTO) 7.2 % (1.0-6.0); HEMATOCRIT 28.4 % (36-46); HEMOGLOBIN 9.2 g/dL (12.0-16.0); LYMPHOCYTES # (AUTO) 2.5 K/uL (1.0-4.8); MEAN CORPUSCULAR HEMOGLOBIN 28.5 pg (26.0-34.0); MEAN CORPUSCULAR HGB CONC 32.5 G/dL (31.0-37.0); MEAN CORPUSCULAR VOLUME 88 fL (80-100); MONOCYTES # (AUTO) 0.8 K/uL (0.1-1.0); MONOCYTES % (AUTO) 7.9 % (2.0-9.0); NEUTROPHILS # (AUTO) 5.9 K/uL (1.8-7.7); NEUTROPHILS % (AUTO) 59.5 % (40.0-70.0); PLATELET COUNT (AUTO) 244 K/uL (150-450); RED BLOOD CELL COUNT(AUTO) 3.23 MIL/uL (4.00-5.20); RED CELL DISTRIBUTION WIDTH 17.8 % (11.5-14.5)
[2024-04-17 07:08] LABS: ALANINE AMINOTRANSFERASE 36 U/L (12-78); ALBUMIN 1.8 g/dL (3.4-5.0); ALKALINE PHOSPHATASE 76 U/L (46-116); ANION GAP 10 mmol/L (8-16); ASPARTATE AMINOTRANSFERASE 29 U/L (15-37); BILIRUBIN,TOTAL 0.2 mg/dL (0.1-1.0); CALCIUM, TOTAL 8.7 mg/dL (8.8-10.5); CARBON DIOXIDE 27 mmol/L (22-29); CHLORIDE 103 mmol/L (98-107); CREATININE 0.33 mg/dL (0.60-1.30); GLOMERULAR FILTR. RATE CALC > 60 mL/min (>60); GLUCOSE,RANDOM 113 mg/dL (70-110); SODIUM SERUM 140 mmol/L (136-145); TOTAL PROTEIN, SERUM 5.4 g/dL (6.4-8.2); UREA NITROGEN, BLOOD 15 mg/dL (7-18)
[2024-04-17] MEDS ORDERED: SODIUM CHLORIDE 0.9% 250 ML IV ONE (20:34)
[2024-04-17 21:16] LABS: C.DIFF GDH ANTIGEN, Stool Negative (Negative)
[2024-04-17 21:17] LABS: C.DIFF TOXINS A&B, Stool Negative (Negative)
[2024-04-18] VITALS (19 sets, daily range): BP systolic 108–159; BP diastolic 52–69; PULSE 62–110; RESP 22–28; TEMP 97.6–99.7; O2SAT 92–100
[2024-04-18 05:56] LABS: ANION GAP 10 mmol/L (8-16); CALCIUM, TOTAL 9.1 mg/dL (8.8-10.5); CARBON DIOXIDE 26 mmol/L (22-29); CHLORIDE 103 mmol/L (98-107); CREATININE 0.39 mg/dL (0.60-1.30); GLOMERULAR FILTR. RATE CALC > 60 mL/min (>60); GLUCOSE,RANDOM 110 mg/dL (70-110); POTASSIUM 3.5 mmol/L (3.5-5.1); SODIUM SERUM 139 mmol/L (136-145); UREA NITROGEN, BLOOD 15 mg/dL (7-18)
[2024-04-18 07:38] LABS: BASOPHILS % (AUTO) 0.7 % (0.0-2.0); EOSINOPHILS % (AUTO) 10.2 % (1.0-6.0); HEMOGLOBIN 9.6 g/dL (12.0-16.0); LYMPHOCYTES # (AUTO) 2.3 K/uL (1.0-4.8); LYMPHOCYTES % (AUTO) 25.3 % (22.0-44.0); MEAN CORPUSCULAR HEMOGLOBIN 29.1 pg (26.0-34.0); MEAN CORPUSCULAR VOLUME 88 fL (80-100); MONOCYTES # (AUTO) 0.5 K/uL (0.1-1.0); MONOCYTES % (AUTO) 5.2 % (2.0-9.0); NEUTROPHILS # (AUTO) 5.4 K/uL (1.8-7.7); NEUTROPHILS % (AUTO) 58.6 % (40.0-70.0); PLATELET COUNT (AUTO) 272 K/uL (150-450); RED BLOOD CELL COUNT(AUTO) 3.29 MIL/uL (4.00-5.20); RED CELL DISTRIBUTION WIDTH 17.6 % (11.5-14.5); WHITE BLOOD COUNT (AUTO) 9.3 K/uL (4.5-11.0)
[2024-04-18] MEDS ORDERED: LIDOCAINE/PF 1% 5 ML VIAL ONE (14:08)
[2024-04-18] MEDS: SILVER NITRATE APPLICATOR 1 EA STICK TP ONE (14:31)
[2024-04-18] MEDS: ROCURONIUM BROMIDE 10 MG/ML 5 ML VIAL IVP ONE (14:31)
[2024-04-19] VITALS (20 sets, daily range): BP systolic 103–179; BP diastolic 50–80; PULSE 75–114; RESP 22–27; TEMP 98.4–99.7; O2SAT 92–96
[2024-04-19 06:16] LABS: BASOPHILS % (AUTO) 0.5 % (0.0-2.0); EOSINOPHILS % (AUTO) 8.2 % (1.0-6.0); HEMATOCRIT 29.6 % (36-46); HEMOGLOBIN 9.7 g/dL (12.0-16.0); LYMPHOCYTES # (AUTO) 1.9 K/uL (1.0-4.8); LYMPHOCYTES % (AUTO) 16.1 % (22.0-44.0); MEAN CORPUSCULAR HEMOGLOBIN 28.9 pg (26.0-34.0); MEAN CORPUSCULAR HGB CONC 32.7 G/dL (31.0-37.0); MEAN CORPUSCULAR VOLUME 88 fL (80-100); MONOCYTES # (AUTO) 0.5 K/uL (0.1-1.0); MONOCYTES % (AUTO) 4.4 % (2.0-9.0); NEUTROPHILS # (AUTO) 8.3 K/uL (1.8-7.7); NEUTROPHILS % (AUTO) 70.8 % (40.0-70.0); PLATELET COUNT (AUTO) 304 K/uL (150-450); RED BLOOD CELL COUNT(AUTO) 3.35 MIL/uL (4.00-5.20); RED CELL DISTRIBUTION WIDTH 17.7 % (11.5-14.5); WHITE BLOOD COUNT (AUTO) 11.6 K/uL (4.5-11.0)
[2024-04-19 06:26] LABS: ANION GAP 12 mmol/L (8-16); CALCIUM, TOTAL 9.1 mg/dL (8.8-10.5); CARBON DIOXIDE 25 mmol/L (22-29); CHLORIDE 103 mmol/L (98-107); CREATININE 0.35 mg/dL (0.60-1.30); GLOMERULAR FILTR. RATE CALC > 60 mL/min (>60); GLUCOSE,RANDOM 106 mg/dL (70-110); POTASSIUM 3.7 mmol/L (3.5-5.1); SODIUM SERUM 140 mmol/L (136-145); UREA NITROGEN, BLOOD 10 mg/dL (7-18)
[2024-04-19] MEDS ORDERED: SODIUM CHLORIDE 0.9% 250 ML IV ONE (19:44)
[2024-04-20] VITALS (23 sets, daily range): BP systolic 98–183; BP diastolic 42–89; PULSE 82–145; RESP 22–39; TEMP 99.5–101.5; O2SAT 91–97
[2024-04-20 06:19] LABS: BASOPHILS % (AUTO) 0.7 % (0.0-2.0); EOSINOPHILS % (AUTO) 11.4 % (1.0-6.0); HEMATOCRIT 32.1 % (36-46); HEMOGLOBIN 10.5 g/dL (12.0-16.0); LYMPHOCYTES # (AUTO) 2.7 K/uL (1.0-4.8); LYMPHOCYTES % (AUTO) 25.3 % (22.0-44.0); MEAN CORPUSCULAR HEMOGLOBIN 28.9 pg (26.0-34.0); MEAN CORPUSCULAR HGB CONC 32.8 G/dL (31.0-37.0); MEAN CORPUSCULAR VOLUME 88 fL (80-100); MONOCYTES # (AUTO) 0.5 K/uL (0.1-1.0); NEUTROPHILS # (AUTO) 6.2 K/uL (1.8-7.7); NEUTROPHILS % (AUTO) 57.6 % (40.0-70.0); PLATELET COUNT (AUTO) 343 K/uL (150-450); RED BLOOD CELL COUNT(AUTO) 3.63 MIL/uL (4.00-5.20); RED CELL DISTRIBUTION WIDTH 17.2 % (11.5-14.5); WHITE BLOOD COUNT (AUTO) 10.8 K/uL (4.5-11.0)
[2024-04-20 06:36] LABS: ALANINE AMINOTRANSFERASE 38 U/L (12-78); ALKALINE PHOSPHATASE 94 U/L (46-116); ANION GAP 10 mmol/L (8-16); ASPARTATE AMINOTRANSFERASE 29 U/L (15-37); BILIRUBIN,TOTAL 0.3 mg/dL (0.1-1.0); CALCIUM, TOTAL 9.2 mg/dL (8.8-10.5); CARBON DIOXIDE 28 mmol/L (22-29); CHLORIDE 102 mmol/L (98-107); GLOMERULAR FILTR. RATE CALC > 60 mL/min (>60); GLUCOSE,RANDOM 95 mg/dL (70-110); POTASSIUM 3.9 mmol/L (3.5-5.1); SODIUM SERUM 140 mmol/L (136-145); TOTAL PROTEIN, SERUM 6.1 g/dL (6.4-8.2); UREA NITROGEN, BLOOD 11 mg/dL (7-18)
[2024-04-20 11:33] LABS: APPEARANCE,URINE CLEAR (CLEAR); BILIRUBIN,URINE NEGATIVE (NEGATIVE); COLOR,URINE COLORLESS (YELLOW); GLUCOSE, URINE (UA) NEGATIVE (NEGATIVE); KETONES,URINE NEGATIVE (NEGATIVE); LEUKOCYTE ESTERASE ,URINE NEGATIVE (NEGATIVE); NITRATE,URINE NEGATIVE (NEGATIVE); OCCULT BLOOD,URINE TRACE (NEGATIVE); PH,URINE 6.5 (5.0-8.0); PROTEIN,URINE NEGATIVE (NEGATIVE); SPECIFIC GRAVITIY, URINE 1.011 (1.003-1.030); UROBILINOGEN,URINE <=1.0 mg/dL (<=1.0)
[2024-04-20 12:10] LABS: WBC,URINE 0-2 /HPF (0-5)
[2024-04-20] MEDS: MIDAZOLAM HCL 100 MG in SODIUM CHLORIDE 0.9% 180 ML IV PRN (12:15)
[2024-04-20] MEDS: VANCOMYCIN 1GM/WATER(PEG/NADA) 200 ML IV ONE (12:17)
[2024-04-20 12:21] LABS: BACTERIA,URINE Few /HPF (None Seen); YEAST,URINE Few /HPF (None Seen)
[2024-04-20] MEDS ORDERED: GADOTERATE MEGLUMINE 10 MMOL/20 ML VIAL IVP ONE (14:01)
[2024-04-20] MEDS ORDERED: SODIUM CHLORIDE 0.9% 500 ML IV ONE ×2 (14:02)
[2024-04-20] MEDS: VANCOMYCIN 1GM/WATER(PEG/NADA) 200 ML IV SCH (20:37)
[2024-04-20] MEDS ORDERED: SODIUM CHLORIDE 0.9% 100 ML ONE (20:50)
[2024-04-20] MEDS ORDERED: 0.9% SODIUM CHLORIDE 10 ML SYRINGE IVP ONE (20:50)
[2024-04-20] MEDS ORDERED: IOHEXOL 350 MG/ML 100 ML VIAL ONE (20:50)
[2024-04-21] VITALS (23 sets, daily range): BP systolic 123–198; BP diastolic 47–82; PULSE 71–135; RESP 22–34; TEMP 99.8–101.9; O2SAT 92–97
[2024-04-21] MEDS ORDERED: SODIUM CHLORIDE 0.9% 500 ML IV ONE (05:38)
[2024-04-21 06:20] LABS: ANION GAP 11 mmol/L (8-16); CALCIUM, TOTAL 9.5 mg/dL (8.8-10.5); CARBON DIOXIDE 27 mmol/L (22-29); CHLORIDE 102 mmol/L (98-107); CREATININE 0.39 mg/dL (0.60-1.30); GLOMERULAR FILTR. RATE CALC > 60 mL/min (>60); GLUCOSE,RANDOM 123 mg/dL (70-110); POTASSIUM 3.5 mmol/L (3.5-5.1); SODIUM SERUM 140 mmol/L (136-145); UREA NITROGEN, BLOOD 12 mg/dL (7-18)
[2024-04-21 07:05] LABS: GLUCOMETER DEV NAME(LOC) ICUN.5; GLUCOSE,POINT OF CARE 158 MG/DL (70-110)
[2024-04-21] MEDS: LEVOFLOXACIN 750 MG/D5% WATER 150 ML IV SCH (16:06)
[2024-04-21] MEDS: LORazepam 1 MG TABLET PO SCH (16:07)
[2024-04-21] MEDS ORDERED: SODIUM CHLORIDE 0.9% 250 ML IV ONE (20:24)
[2024-04-22] VITALS (20 sets, daily range): BP systolic 108–157; BP diastolic 37–67; PULSE 74–111; RESP 22–33; TEMP 97.7–101.1; O2SAT 92–100
[2024-04-22 06:06] LABS: ALANINE AMINOTRANSFERASE 30 U/L (12-78); ALBUMIN 1.9 g/dL (3.4-5.0); ALKALINE PHOSPHATASE 80 U/L (46-116); ANION GAP 8 mmol/L (8-16); ASPARTATE AMINOTRANSFERASE 22 U/L (15-37); BILIRUBIN,TOTAL 0.3 mg/dL (0.1-1.0); CALCIUM, TOTAL 9.1 mg/dL (8.8-10.5); CARBON DIOXIDE 27 mmol/L (22-29); CHLORIDE 103 mmol/L (98-107); CREATININE 0.23 mg/dL (0.60-1.30); GLOMERULAR FILTR. RATE CALC > 60 mL/min (>60); GLUCOSE,RANDOM 112 mg/dL (70-110); POTASSIUM 3.5 mmol/L (3.5-5.1); SODIUM SERUM 138 mmol/L (136-145); TOTAL PROTEIN, SERUM 5.8 g/dL (6.4-8.2); UREA NITROGEN, BLOOD 21 mg/dL (7-18); VANCOMYCIN,RANDOM 11.6 mcg/mL (25.0-50.0)
[2024-04-22 06:42] LABS: BASOPHILS % (AUTO) 0.5 % (0.0-2.0); EOSINOPHILS % (AUTO) 8.9 % (1.0-6.0); HEMATOCRIT 28.8 % (36-46); HEMOGLOBIN 9.1 g/dL (12.0-16.0); LYMPHOCYTES % (AUTO) 15.9 % (22.0-44.0); MEAN CORPUSCULAR HEMOGLOBIN 28.3 pg (26.0-34.0); MEAN CORPUSCULAR HGB CONC 31.7 G/dL (31.0-37.0); MEAN CORPUSCULAR VOLUME 89 fL (80-100); MONOCYTES # (AUTO) 0.7 K/uL (0.1-1.0); MONOCYTES % (AUTO) 5.4 % (2.0-9.0); NEUTROPHILS # (AUTO) 8.8 K/uL (1.8-7.7); NEUTROPHILS % (AUTO) 69.3 % (40.0-70.0); PLATELET COUNT (AUTO) 354 K/uL (150-450); RED BLOOD CELL COUNT(AUTO) 3.23 MIL/uL (4.00-5.20); RED CELL DISTRIBUTION WIDTH 17.8 % (11.5-14.5); WHITE BLOOD COUNT (AUTO) 12.6 K/uL (4.5-11.0)
[2024-04-22] MEDS: VANCOMYCIN 1.25 GM/WATER(PEG) 250 ML IV SCH (08:17)
[2024-04-23] VITALS (18 sets, daily range): BP systolic 105–196; BP diastolic 41–73; PULSE 95–130; RESP 22–30; TEMP 99.4–101; O2SAT 87–100
[2024-04-23] MEDS ORDERED: SODIUM CHLORIDE 0.9% 500 ML IV ONE (00:13)
[2024-04-23 06:29] LABS: BASOPHILS % (AUTO) 0.5 % (0.0-2.0); EOSINOPHILS % (AUTO) 12.1 % (1.0-6.0); HEMATOCRIT 30.6 % (36-46); HEMOGLOBIN 9.9 g/dL (12.0-16.0); LYMPHOCYTES # (AUTO) 2.3 K/uL (1.0-4.8); LYMPHOCYTES % (AUTO) 21.6 % (22.0-44.0); MEAN CORPUSCULAR HEMOGLOBIN 29.3 pg (26.0-34.0); MEAN CORPUSCULAR HGB CONC 32.5 G/dL (31.0-37.0); MEAN CORPUSCULAR VOLUME 90 fL (80-100); MONOCYTES # (AUTO) 0.8 K/uL (0.1-1.0); MONOCYTES % (AUTO) 7.9 % (2.0-9.0); NEUTROPHILS # (AUTO) 6.1 K/uL (1.8-7.7); NEUTROPHILS % (AUTO) 57.9 % (40.0-70.0); PLATELET COUNT (AUTO) 488 K/uL (150-450); RED BLOOD CELL COUNT(AUTO) 3.39 MIL/uL (4.00-5.20); WHITE BLOOD COUNT (AUTO) 10.6 K/uL (4.5-11.0)
[2024-04-23] MEDS ORDERED: 0.9% SODIUM CHLORIDE 10 ML SYRINGE IVP ONE (14:49)
[2024-04-23] MEDS ORDERED: SODIUM CHLORIDE 0.9% 100 ML ONE (14:49)
[2024-04-23] MEDS ORDERED: IOHEXOL 350 MG/ML 100 ML VIAL ONE (14:49)
[2024-04-24] VITALS (22 sets, daily range): BP systolic 111–183; BP diastolic 39–65; PULSE 91–153; RESP 19–38; TEMP 98.1–101.8; O2SAT 94–100
[2024-04-24 06:08] LABS: BASOPHILS % (AUTO) 0.3 % (0.0-2.0); EOSINOPHILS % (AUTO) 7.9 % (1.0-6.0); HEMATOCRIT 28.6 % (36-46); HEMOGLOBIN 9.1 g/dL (12.0-16.0); LYMPHOCYTES # (AUTO) 1.3 K/uL (1.0-4.8); LYMPHOCYTES % (AUTO) 9.5 % (22.0-44.0); MEAN CORPUSCULAR HEMOGLOBIN 28.5 pg (26.0-34.0); MEAN CORPUSCULAR HGB CONC 31.9 G/dL (31.0-37.0); MEAN CORPUSCULAR VOLUME 89 fL (80-100); MONOCYTES # (AUTO) 0.9 K/uL (0.1-1.0); MONOCYTES % (AUTO) 6.2 % (2.0-9.0); NEUTROPHILS # (AUTO) 10.7 K/uL (1.8-7.7); NEUTROPHILS % (AUTO) 76.1 % (40.0-70.0); PLATELET COUNT (AUTO) 480 K/uL (150-450); RED BLOOD CELL COUNT(AUTO) 3.21 MIL/uL (4.00-5.20); RED CELL DISTRIBUTION WIDTH 17.8 % (11.5-14.5); WHITE BLOOD COUNT (AUTO) 14.1 K/uL (4.5-11.0)
[2024-04-24 06:29] LABS: ANION GAP 12 mmol/L (8-16); CALCIUM, TOTAL 9.1 mg/dL (8.8-10.5); CARBON DIOXIDE 25 mmol/L (22-29); CHLORIDE 104 mmol/L (98-107); CREATININE 0.24 mg/dL (0.60-1.30); GLOMERULAR FILTR. RATE CALC > 60 mL/min (>60); GLUCOSE,RANDOM 111 mg/dL (70-110); POTASSIUM 3.3 mmol/L (3.5-5.1); SODIUM SERUM 141 mmol/L (136-145); UREA NITROGEN, BLOOD 16 mg/dL (7-18)
[2024-04-25] VITALS (22 sets, daily range): BP systolic 82–174; BP diastolic 59–121; PULSE 75–132; RESP 19–40; TEMP 99–101.4; O2SAT 94–100
[2024-04-25 06:16] LABS: BASOPHILS % (AUTO) 0.9 % (0.0-2.0); EOSINOPHILS % (AUTO) 6.6 % (1.0-6.0); HEMOGLOBIN 10.9 g/dL (12.0-16.0); LYMPHOCYTES # (AUTO) 3.2 K/uL (1.0-4.8); MEAN CORPUSCULAR HEMOGLOBIN 28.7 pg (26.0-34.0); MEAN CORPUSCULAR HGB CONC 32.1 G/dL (31.0-37.0); MEAN CORPUSCULAR VOLUME 90 fL (80-100); MONOCYTES # (AUTO) 1.4 K/uL (0.1-1.0); MONOCYTES % (AUTO) 9.2 % (2.0-9.0); NEUTROPHILS % (AUTO) 61.3 % (40.0-70.0); PLATELET COUNT (AUTO) 550 K/uL (150-450); RED CELL DISTRIBUTION WIDTH 17.5 % (11.5-14.5); WHITE BLOOD COUNT (AUTO) 14.7 K/uL (4.5-11.0)
[2024-04-25 06:37] LABS: ANION GAP 11 mmol/L (8-16); CARBON DIOXIDE 28 mmol/L (22-29); CHLORIDE 103 mmol/L (98-107); CREATININE 0.32 mg/dL (0.60-1.30); GLOMERULAR FILTR. RATE CALC > 60 mL/min (>60); GLUCOSE,RANDOM 110 mg/dL (70-110); POTASSIUM 3.5 mmol/L (3.5-5.1); SODIUM SERUM 142 mmol/L (136-145); UREA NITROGEN, BLOOD 16 mg/dL (7-18); VANCOMYCIN,RANDOM 20.3 mcg/mL (25.0-50.0)
[2024-04-25] MEDS: METOPROLOL TARTRATE 25 MG TABLET PO SCH (11:42)
[2024-04-25] MEDS ORDERED: GADOTERATE MEGLUMINE 10 MMOL/20 ML VIAL IVP ONE (13:26)
[2024-04-25] MEDS ORDERED: 0.9% SODIUM CHLORIDE 10 ML SYRINGE IVP ONE (18:04)
[2024-04-25] MEDS ORDERED: IOHEXOL 350 MG/ML 100 ML VIAL ONE ×2 (18:04→18:45)
[2024-04-25] MEDS ORDERED: SODIUM CHLORIDE 0.9% 100 ML ONE (18:04)
[2024-04-25 18:32] LABS: APPEARANCE,URINE CLEAR (CLEAR); BILIRUBIN,URINE NEGATIVE (NEGATIVE); COLOR,URINE COLORLESS (YELLOW); GLUCOSE, URINE (UA) NEGATIVE (NEGATIVE); KETONES,URINE NEGATIVE (NEGATIVE); LEUKOCYTE ESTERASE ,URINE NEGATIVE (NEGATIVE); NITRATE,URINE NEGATIVE (NEGATIVE); OCCULT BLOOD,URINE LARGE (NEGATIVE); PH,URINE 6.5 (5.0-8.0); PROTEIN,URINE NEGATIVE (NEGATIVE); SPECIFIC GRAVITIY, URINE 1.009 (1.003-1.030); UROBILINOGEN,URINE <=1.0 mg/dL (<=1.0)
[2024-04-25 18:52] LABS: BACTERIA,URINE Few /HPF (None Seen); RBC,URINE 26-50 /HPF (0-2); SQUAMOUS EPITHELIAL CELL,UR Rare /LPF (None Seen); WBC,URINE 0-2 /HPF (0-5)
[2024-04-26] VITALS (20 sets, daily range): BP systolic 80–170; BP diastolic 40–92; PULSE 72–142; RESP 22–40; TEMP 99.3–101.4; O2SAT 94–99
[2024-04-26 09:19] LABS: BASOPHILS % (AUTO) 0.5 % (0.0-2.0); EOSINOPHILS % (AUTO) 3.9 % (1.0-6.0); HEMATOCRIT 35.6 % (36-46); HEMOGLOBIN 11.4 g/dL (12.0-16.0); LYMPHOCYTES # (AUTO) 1.6 K/uL (1.0-4.8); LYMPHOCYTES % (AUTO) 13.6 % (22.0-44.0); MEAN CORPUSCULAR HEMOGLOBIN 28.3 pg (26.0-34.0); MEAN CORPUSCULAR HGB CONC 32.1 G/dL (31.0-37.0); MEAN CORPUSCULAR VOLUME 88 fL (80-100); MONOCYTES # (AUTO) 0.6 K/uL (0.1-1.0); MONOCYTES % (AUTO) 5.1 % (2.0-9.0); NEUTROPHILS # (AUTO) 9.2 K/uL (1.8-7.7); NEUTROPHILS % (AUTO) 76.9 % (40.0-70.0); PLATELET COUNT (AUTO) 685 K/uL (150-450); RED BLOOD CELL COUNT(AUTO) 4.04 MIL/uL (4.00-5.20); RED CELL DISTRIBUTION WIDTH 17.2 % (11.5-14.5)
[2024-04-26 09:32] LABS: ALANINE AMINOTRANSFERASE 33 U/L (12-78); ALBUMIN 2.8 g/dL (3.4-5.0); ALKALINE PHOSPHATASE 101 U/L (46-116); ANION GAP 12 mmol/L (8-16); ASPARTATE AMINOTRANSFERASE 29 U/L (15-37); BILIRUBIN,TOTAL 0.4 mg/dL (0.1-1.0); CARBON DIOXIDE 28 mmol/L (22-29); CHLORIDE 102 mmol/L (98-107); CREATININE 0.38 mg/dL (0.60-1.30); GLOMERULAR FILTR. RATE CALC > 60 mL/min (>60); GLUCOSE,RANDOM 138 mg/dL (70-110); SODIUM SERUM 142 mmol/L (136-145); TOTAL PROTEIN, SERUM 7.6 g/dL (6.4-8.2); UREA NITROGEN, BLOOD 17 mg/dL (7-18)
[2024-04-26 09:33] LABS: POTASSIUM 2.9 mmol/L (3.5-5.1)
[2024-04-26] MEDS: METOPROLOL TARTRATE 5 MG/5 ML VIAL IVP ONE (11:28)
[2024-04-26] MEDS: QUEtiapine FUMARATE 25 MG TABLET PO SCH (13:28)
[2024-04-26] MEDS: DILTIAZEM HCL 5 MG/ML 5 ML VIAL IVP ONE (15:26)
[2024-04-26] MEDS: AMIODARONE HCL 150 MG in DEXTROSE 5%-WATER 97 ML IV ONE (15:27)
[2024-04-26] MEDS: POLYETHYLENE GLYCOL 3350 17 GM PACKET GT ONE (15:29)
[2024-04-26] MEDS: AMIODARONE HCL 360 MG in DEXTROSE 5%-WATER 242.8 ML IV ONE (16:14)
[2024-04-26] MEDS: METOPROLOL TARTRATE 25 MG TABLET PO SCH (20:56)
[2024-04-26] MEDS: DOCUSATE SODIUM 100 MG CAPSULE GT SCH (20:56)
[2024-04-26] MEDS: AMIODARONE HCL 540 MG in DEXTROSE 5%-WATER 239.2 ML IV ONE (20:59)
[2024-04-26] MEDS ORDERED: DOCUSATE SODIUM 100 MG/10 ML LIQUID UDCUP GT SCH (22:19)
[2024-04-26] MEDS: LORazepam 2 MG/ML VIAL IVP ONE (22:20)
[2024-04-27] VITALS (16 sets, daily range): BP systolic 98–163; BP diastolic 58–76; PULSE 80–122; RESP 22–38; TEMP 98.2–100.3; O2SAT 93–100
[2024-04-27] MEDS ORDERED: SODIUM CHLORIDE 0.9% 250 ML IV ONE (05:36)
[2024-04-27 06:09] LABS: BASOPHILS % (AUTO) 0.6 % (0.0-2.0); EOSINOPHILS % (AUTO) 10.6 % (1.0-6.0); HEMATOCRIT 32.1 % (36-46); HEMOGLOBIN 10.3 g/dL (12.0-16.0); LYMPHOCYTES % (AUTO) 23.5 % (22.0-44.0); MEAN CORPUSCULAR HEMOGLOBIN 28.6 pg (26.0-34.0); MEAN CORPUSCULAR VOLUME 89 fL (80-100); MONOCYTES # (AUTO) 1.3 K/uL (0.1-1.0); MONOCYTES % (AUTO) 10.6 % (2.0-9.0); NEUTROPHILS # (AUTO) 6.9 K/uL (1.8-7.7); NEUTROPHILS % (AUTO) 54.7 % (40.0-70.0); PLATELET COUNT (AUTO) 679 K/uL (150-450); RED BLOOD CELL COUNT(AUTO) 3.59 MIL/uL (4.00-5.20); RED CELL DISTRIBUTION WIDTH 17.4 % (11.5-14.5); WHITE BLOOD COUNT (AUTO) 12.7 K/uL (4.5-11.0)
[2024-04-27 06:21] LABS: ANION GAP 10 mmol/L (8-16); CALCIUM, TOTAL 9.5 mg/dL (8.8-10.5); CARBON DIOXIDE 28 mmol/L (22-29); CHLORIDE 104 mmol/L (98-107); CREATININE 0.28 mg/dL (0.60-1.30); GLOMERULAR FILTR. RATE CALC > 60 mL/min (>60); GLUCOSE,RANDOM 115 mg/dL (70-110); POTASSIUM 3.8 mmol/L (3.5-5.1); SODIUM SERUM 142 mmol/L (136-145); UREA NITROGEN, BLOOD 23 mg/dL (7-18)
[2024-04-27] MEDS: DOCUSATE SODIUM 100 MG/10 ML LIQUID UDCUP GT SCH (08:03)
[2024-04-27] MEDS ORDERED: AMIODARONE HCL 750 MG in DEXTROSE 5%-WATER 485 ML IV SCH (09:30)
[2024-04-27] MEDS: LEVOFLOXACIN 750 MG/D5% WATER 150 ML IV SCH (11:00)
[2024-04-27] MEDS: AMIODARONE HCL 200 MG TABLET NG SCH (21:09)
[2024-04-28] VITALS (20 sets, daily range): BP systolic 103–126; BP diastolic 57–68; PULSE 83–121; RESP 22–30; TEMP 97.9–99.4; O2SAT 92–100
[2024-04-28 06:30] LABS: BASOPHILS % (AUTO) 0.7 % (0.0-2.0); EOSINOPHILS % (AUTO) 9.7 % (1.0-6.0); HEMATOCRIT 30.9 % (36-46); HEMOGLOBIN 9.9 g/dL (12.0-16.0); LYMPHOCYTES # (AUTO) 3.3 K/uL (1.0-4.8); LYMPHOCYTES % (AUTO) 23.1 % (22.0-44.0); MEAN CORPUSCULAR HEMOGLOBIN 28.8 pg (26.0-34.0); MEAN CORPUSCULAR VOLUME 90 fL (80-100); MONOCYTES # (AUTO) 2.5 K/uL (0.1-1.0); MONOCYTES % (AUTO) 17.1 % (2.0-9.0); NEUTROPHILS # (AUTO) 7.1 K/uL (1.8-7.7); NEUTROPHILS % (AUTO) 49.4 % (40.0-70.0); PLATELET COUNT (AUTO) 653 K/uL (150-450); RED BLOOD CELL COUNT(AUTO) 3.43 MIL/uL (4.00-5.20); RED CELL DISTRIBUTION WIDTH 17.1 % (11.5-14.5); WHITE BLOOD COUNT (AUTO) 14.4 K/uL (4.5-11.0)
[2024-04-28 06:37] LABS: ALBUMIN 2.5 g/dL (3.4-5.0); ANION GAP 9 mmol/L (8-16); CALCIUM, TOTAL 9.8 mg/dL (8.8-10.5); CARBON DIOXIDE 30 mmol/L (22-29); CHLORIDE 104 mmol/L (98-107); CREATININE 0.38 mg/dL (0.60-1.30); GLOMERULAR FILTR. RATE CALC > 60 mL/min (>60); GLUCOSE,RANDOM 98 mg/dL (70-110); POTASSIUM 3.2 mmol/L (3.5-5.1); SODIUM SERUM 143 mmol/L (136-145); UREA NITROGEN, BLOOD 26 mg/dL (7-18)
[2024-04-28] MEDS: ALPRAZolam 0.25 MG TABLET PO SCH (10:20)
[2024-04-28] MEDS ORDERED: NALOXONE HCL 1 MG/ML 2 ML SYRINGE IVP PRN (12:15)
[2024-04-28] MEDS: MAGNESIUM SULFATE 2 GM/WATER 50 ML IV ONE ×2 (12:32→12:33)
[2024-04-28] MEDS: OxyCODONE HCL 10 MG ER TABLET PO SCH (12:44)
[2024-04-28] MEDS: FentaNYL 50 MCG/HOUR PATCH TD SCH (15:45)
[2024-04-28] MEDS: QUEtiapine FUMARATE 25 MG TABLET PO SCH (15:46)
[2024-04-28] MEDS: PROPOFOL 1000 MG/ISO-OSM 100 ML IV PRN (17:03)
[2024-04-29] VITALS (14 sets, daily range): BP systolic 91–128; BP diastolic 51–67; PULSE 82–114; RESP 22–29; TEMP 98.6–98.9; O2SAT 95–100
[2024-04-29] MEDS: KETOROLAC TROMETHAMINE 15 MG/ML VIAL IVP PRN (00:29)
[2024-04-29] MEDS: MIDAZOLAM HCL 2 MG/2 ML VIAL IVP PRN (00:29)
[2024-04-29] MEDS ORDERED: FUROSEMIDE 20 MG TABLET PO SCH (09:00)
[2024-04-29] MEDS: FUROSEMIDE 20 MG TABLET GT SCH (09:33)
[2024-04-29] MEDS ORDERED: ALPR-705 PO (10:33)
[2024-04-29] MEDS ORDERED: Bisacodyl PR (10:33)
[2024-04-29] MEDS ORDERED: DOCU50LI40 GT (10:33)
[2024-04-29] MEDS ORDERED: FURO20TA4 GT (10:33)
[2024-04-29] MEDS ORDERED: ATOR40TA71 PO (10:33)
[2024-04-29] MEDS ORDERED: FENT-93 TD (10:33)
[2024-04-29] MEDS ORDERED: [UNRECOGNIZED DRUG - CODE] IVP (10:33)
[2024-04-29] MEDS ORDERED: ASPI-1450 PO (10:33)
[2024-04-29] MEDS ORDERED: AMIN30LI2 GT (10:33)
[2024-04-29] MEDS ORDERED: HYDR1SYR3 IVP (10:33)
[2024-04-29] MEDS ORDERED: AMIO200 NG (10:33)
[2024-04-29] MEDS ORDERED: HEPA500018 SQ (10:33)
[2024-04-29] MEDS ORDERED: QUET25TA36 PO (10:33)
[2024-04-29] MEDS ORDERED: NALO1SYR6 IVP (10:33)
[2024-04-29] MEDS ORDERED: METO25 PO (10:33)
[2024-04-29] MEDS ORDERED: MIDO5TAB29 PO (10:33)
[2024-04-29] MEDS ORDERED: IPRA0.2S49 NEB (10:33)
[2024-04-29] MEDS ORDERED: LEVO750T68 PO (10:33)
[2024-04-29] MEDS ORDERED: GABAPENTIN 300 MG CAPSULE PO SCH (21:00)
== END 2024-04-29 15:00 | DRG 4 ==
LOC: EMS 08:58 → EDH 11:33 → ICU 03-19 08:50
PROVIDERS: ADMIT Internal Medicine; ATTEND Internal Medicine
PROC: 5A1955Z Respiratory Ventilation, Greater than 96 Consecutive Hours (ICD-10-PCS; principal; 2024-03-18)
PROC: 0BH17EZ Insertion of Endotracheal Airway into Trachea, Via Natural or Artificial Opening (ICD-10-PCS; 2024-03-18)
PROC: 4A00X4Z Measurement of Central Nervous Electrical Activity, External Approach (ICD-10-PCS; 2024-03-27)
PROC: 009U3ZX Drainage of Spinal Canal, Percutaneous Approach, Diagnostic (ICD-10-PCS; 2024-03-30)
PROC: 05HC33Z Insertion of Infusion Device into Left Basilic Vein, Percutaneous Approach (ICD-10-PCS; 2024-03-31)
PROC: B54NZZA Ultrasonography of Left Upper Extremity Veins, Guidance (ICD-10-PCS; 2024-03-31)
PROC: B54MZZA Ultrasonography of Right Upper Extremity Veins, Guidance (ICD-10-PCS; 2024-03-31)
PROC: 05HB33Z Insertion of Infusion Device into Right Basilic Vein, Percutaneous Approach (ICD-10-PCS; 2024-03-31)
PROC: 0W993ZX Drainage of Right Pleural Cavity, Percutaneous Approach, Diagnostic (ICD-10-PCS; 2024-04-03)
PROC: 5A1955Z Respiratory Ventilation, Greater than 96 Consecutive Hours (ICD-10-PCS; 2024-04-18)
PROC: 0B113F4 Bypass Trachea to Cutaneous with Tracheostomy Device, Percutaneous Approach (ICD-10-PCS; 2024-04-18)
PROC: 0BDJ8ZX Extraction of Left Lower Lung Lobe, Via Natural or Artificial Opening Endoscopic, Diagnostic (ICD-10-PCS; 2024-04-18)
PROC: 05H933Z Insertion of Infusion Device into Right Brachial Vein, Percutaneous Approach (ICD-10-PCS; 2024-04-25)
PROC: B54MZZA Ultrasonography of Right Upper Extremity Veins, Guidance (ICD-10-PCS; 2024-04-25)
DX: A41.1 Sepsis due to other specified staphylococcus (principal); R65.21 Severe sepsis with septic shock; I50.31 Acute diastolic (congestive) heart failure; G92.8 Other toxic encephalopathy; E43 Unspecified severe protein-calorie malnutrition; J80 Acute respiratory distress syndrome; J18.9 Pneumonia, unspecified organism; I21.9 Acute myocardial infarction, unspecified; I21.A1 Myocardial infarction type 2; J69.0 Pneumonitis due to inhalation of food and vomit; Z99.11 Dependence on respirator [ventilator] status; N17.9 Acute kidney failure, unspecified; I47.10 Supraventricular tachycardia, unspecified; J91.8 Pleural effusion in other conditions classified elsewhere; J98.11 Atelectasis; E87.6 Hypokalemia; E83.39 Other disorders of phosphorus metabolism; I11.0 Hypertensive heart disease with heart failure; E66.9 Obesity, unspecified; I07.1 Rheumatic tricuspid insufficiency; I25.2 Old myocardial infarction; Z68.33 Body mass index [BMI] 33.0-33.9, adult; F41.9 Anxiety disorder, unspecified; I48.91 Unspecified atrial fibrillation; I70.0 Atherosclerosis of aorta; J30.9 Allergic rhinitis, unspecified; K57.30 Diverticulosis of large intestine without perforation or abscess without bleeding; K59.00 Constipation, unspecified; M48.02 Spinal stenosis, cervical region; M48.061 Spinal stenosis, lumbar region without neurogenic claudication; Z78.1 Physical restraint status; Z87.01 Personal history of pneumonia (recurrent); Z88.0 Allergy status to penicillin; Z96.651 Presence of right artificial knee joint; G89.29 Other chronic pain; M54.9 Dorsalgia, unspecified; Z90.49 Acquired absence of other specified parts of digestive tract; Z20.822 Contact with and (suspected) exposure to COVID-19
CPT/HCPCS: 0202U; 0241U; 31624; 32555; 36245; 36569; 36600; 70460; 70487; 70496; 70498; 70551; 70553; 71045; 71250; 71260; 71275; 72126; 72129; 72132; 72156; 72157; 72158; 72193; 74160; 74177; 76770; 76937; 76942; 78580; 80048; 80053; 80061; 80076; 80202; 80307; 81001; 82040; 82140; 82465; 82550; 82570; 82607; 82805; 82945; 82962; 83605; 83615; 83735; 83880; 83916; 83986; 84100; 84132; 84145; 84157; 84182; 84300; 84425; 84443; 84478; 84484; 84540; 85025; 85610; 86038; 86052; 86171; 86225; 86235; 86255; 86317; 86341; 86362; 86376; 86592; 86611; 86631; 86632; 86738; 86788; 86789; 86800; 87015; 87040; 87070; 87075; 87077; 87081; 87101; 87109; 87186; 87205; 87206; 87220; 87252; 87324; 87449; 87481; 87483; 87529; 87798; 87899; 88112; 88305; 89051; 93005; 93306; 93970; 94002; 94003; 94640; 94644; 95816; 99285; A9540; C8924; C9113; G0238; G0378; G0480; G0481; J0131; J0133; J0282; J0692; J0744; J1100; J1200; J1450; J1630; J1644; J1885; J1940; J1956; J2001; J2060; J2185; J2250; J2370; J2704; J2919; J3010; J3475; J3480; J3490; J7030; J7040; J7050; J7060; 36415-L1; 36415-TC; 70450; 70450-TC; 82803-TC; J7613; X7700

== ENCOUNTER 2024-09-04 18:43 | Emergency (ER) | payer MEDICARE, MEDICAID ==
[~2024-09-04] VITALS: Ht 157.5 cm; Wt 90.5 kg
[~2024-09-04 18:43] MED LIST changes: +ALPR-705 PO; +AMIN30LI2 GT; +AMIO200 NG; +ASPI-1450 PO; +ATOR40TA71 PO; +Bisacodyl PR; -DOCU-119 PO; +DOCU50LI40 GT; -DULO-114 PO; +FENT-93 TD; -FLUT16SP NASAL; +FURO20TA4 GT; -GABA-1181 PO; +HEPA500018 SQ; -HYDR-4062 PO; +HYDR1SYR3 IVP; +IPRA0.2S49 NEB; -MELO-107 PO; +METO25 PO; +MIDO5TAB29 PO; +NALO1SYR6 IVP; -OSEL75CA45 PO; +QUET25TA36 PO; -ROPI2TAB26 PO; -TRAZ-257 PO; +[UNRECOGNIZED DRUG - CODE] IVP
[2024-09-04 19:03] LABS: BASOPHILS % (AUTO) 0.7 % (0.0-2.0); EOSINOPHILS % (AUTO) 1.2 % (1.0-6.0); HEMATOCRIT 39.1 % (36-46); HEMOGLOBIN 12.5 g/dL (12.0-16.0); LYMPHOCYTES % (AUTO) 48.1 % (22.0-44.0); MEAN CORPUSCULAR HEMOGLOBIN 28.5 pg (26.0-34.0); MEAN CORPUSCULAR VOLUME 89 fL (80-100); MONOCYTES # (AUTO) 0.5 K/uL (0.1-1.0); MONOCYTES % (AUTO) 8.8 % (2.0-9.0); NEUTROPHILS # (AUTO) 2.6 K/uL (1.8-7.7); NEUTROPHILS % (AUTO) 41.2 % (40.0-70.0); PLATELET COUNT (AUTO) 267 K/uL (150-450); RED BLOOD CELL COUNT(AUTO) 4.39 MIL/uL (4.00-5.20); RED CELL DISTRIBUTION WIDTH 19.1 % (11.5-14.5); WHITE BLOOD COUNT (AUTO) 6.2 K/uL (4.5-11.0)
[2024-09-04 19:13] LABS: ANION GAP 9 mmol/L (8-16); CALCIUM, TOTAL 8.8 mg/dL (8.8-10.5); CARBON DIOXIDE 27 mmol/L (22-29); CHLORIDE 108 mmol/L (98-107); CREATININE 0.61 mg/dL (0.60-1.30); GLOMERULAR FILTR. RATE CALC > 60 mL/min (>60); GLUCOSE,RANDOM 94 mg/dL (70-110); POTASSIUM 3.8 mmol/L (3.5-5.1); SODIUM SERUM 144 mmol/L (136-145); UREA NITROGEN, BLOOD 16 mg/dL (7-18)
[2024-09-04 19:16] LABS: ALCOHOL, BLOOD (SERUM) < 3 mg/dL (0-10)
[2024-09-04 20:00] VITALS: TEMP 98.4
[2024-09-04 20:24] LABS: COVID AG,FIA SOURCE NASAL SWAB
[2024-09-04 21:06] LABS: SARS-COV2 (COVID) ANTIGEN,FIA Negative (Negative)
[2024-09-04] MEDS: TraZODone HCL 50 MG TABLET PO ONE (23:41)
[2024-09-04 23:45] VITALS: BP 140/80; PULSE 80; RESP 18; O2SAT 98
[2024-09-05] MEDS: ACETAMINOPHEN 325 MG TABLET PO ONE (00:51)
== END 2024-09-05 01:58 ==
LOC: EMS 18:43
DX: R45.851 Suicidal ideations (principal); F32.A Depression, unspecified; F41.9 Anxiety disorder, unspecified; Z88.0 Allergy status to penicillin; Z88.5 Allergy status to narcotic agent; Z79.82 Long term (current) use of aspirin; Z90.49 Acquired absence of other specified parts of digestive tract; Z79.899 Other long term (current) drug therapy; Z20.822 Contact with and (suspected) exposure to COVID-19
CPT/HCPCS: 99283; 87426; 80048; 85025; G0480